=== PATIENT | female | born 1955 | race Caucasian/White ===

== ENCOUNTER 2019-03-15 08:30 | Outpatient (RCR) | payer SELFPAY ==
[2019-02-22 08:53] VITALS: BP 136/68; PULSE 70; RESP 18; TEMP 36.1; BMI 32.3
--- NOTE | 2019-02-22 11:35 | PCM.WC.HP ---
(1) Ulcer of right foot with fat layer exposed Status: Acute Current Visit: Yes Code(s): L97.512 - Non-pressure chronic ulcer of other part of right foot with fat layer exposed (2) Chronic ulcer of left foot with fat layer exposed Status: Chronic Current Visit: Yes Code(s): L97.522 - Non-pressure chronic ulcer of other part of left foot with fat layer exposed (3) Type 2 diabetes mellitus with diabetic polyneuropathy Status: Acute Current Visit: Yes Code(s): E11.42 - Type 2 diabetes mellitus with diabetic polyneuropathy (4) PVD (peripheral vascular disease) Status: Suspected Current Visit: Yes Code(s): I73.9 - Peripheral vascular disease, unspecified (5) Lower extremity edema Status: Acute Current Visit: Yes Code(s): R60.0 - Localized edema History of Present Illness Date of Service: 02/22/19 Chief Complaint: ulcers to right and left foot History of Wound: This 63-year-old diabetic female presents to the office today with her after being referred by her 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 The patient states that she had an issue with her sub-right first metatarsal head ulcer about 4 years ago, and that she had had a previous surgery in the area and that everything eventually healed up. She relates recently that about 3 weeks ago she got a pair of new diabetic shoes and that these new 3 ulcers all appeared. She says she has been treating them with what she thinks is Silvadene and a dressing over top. She has been trying to keep the areas offloaded with a half shoe to the right foot and an open toed shoe to the left foot so no pressure is applied to the ulcer sites. She is also using a scooter. She and her feel the areas have been slowly improving, but were referred here for further care. Patient denies noticing any purulence to the areas or any extending redness. Currently the patient denies any feelings of nausea, vomiting, fever, chills. Past Medical History Past Medical History: Chronic Problems Chronic ulcer of left foot with fat layer exposed (Chronic) Hypertension (Chronic) Obesity (BMI 30.0-34.9) (Chronic) Hyperlipidemia (Chronic) Diabetes mellitus, type II (Chronic) Fatty liver (Chronic) Suspect chronic, ED Liver US w/ fatty liver. Elevated LFTs, unclear if chronic as also dehydrated upon admission. Surgical History: cholecystectomy Allergies/Adverse Reactions: Allergies sulfamethoxazole [From Bactrim] Allergy (Verified 02/22/19 09:21) Nausea/Vom/Diarrhea trimethoprim [From Bactrim] Allergy (Verified 02/22/19 09:21) Nausea/Vom/Diarrhea Home Medications: Ambulatory Orders Medication Instructions Recorded Glipizide [Glucotrol Xl] 10 mg PO DAILY 03/31/15 Insulin NPH/Reg 70/30 [Novolin 4 units SC DAILY 03/31/15 70/30] Pravastatin [Pravachol] mg PO DAILY 02/22/19 Triamterene/Hydrochlorothiazid 0.5 tab PO DAILY 02/22/19 [Triamterene-Hctz 75-50 mg Tab] - Family History Maternal No pertinent history Paternal Heart Disease - Father w/ [place] at 75 y/o. Smoking Status: Never smoker Review of Systems Constitutional: Denies: Chills, Fever, Weight Change Cardiovascular: Denies: Chest Pain, Palpitations Respiratory: Denies: Cough, Shortness of Breath Gastrointestinal: Denies: Diarrhea, Nausea, Vomiting Skin: Reports: - - Bilateral foot ulcers - Physical Exam Vital Signs Temp Pulse Resp BP 96.9 F L 70 18 136/68 H 02/22/19 08:53 02/22/19 08:53 02/22/19 08:53 02/22/19 08:53 General: Alert, Oriented x3, Cooperative, No apparent distress Extremities: No cyanosis, Capillary Refill Less than 3 Seconds - To distal digits of each foot, No Calf Tenderness - Negative Azra and Valencia signs, Diminished Peripheral Pulses - DP pulses palpable bilateral and PT pulses nonpalpable bilateral, Edema - Bilateral lower extremity edema Skin: Ulcer/ Wound - Ulcer sub-right first metatarsal head with fat layer exposed. Base is a mixture of adherent slough, fibrin, devitalized subcutaneous tissue, biofilm, grannular tissue and slight surrounding hyperkeratotic tissue. There is no purulence, no malodor, no surrounding or extending cellulitis, no significant increase in warmth, no probing to bone, no tracking, no undermining. Small superficial ulcers also noted to the dorsal right fourth toe and distal left hallux. There are no surrounding signs of local infection in these areas at this time either. The bases of these are a mixture of adherent slough, fibrin, devitalized subcutaneous tissue, granular tissue, and surrounding hyperkeratotic tissue. Surrounding skin hairless and atrophic. Wound Measurements and Assessment WC - Nurse 1 - General Ulcer Measurement Start: 02/22/19 08:53 Freq: Status: Active Protocol: Activity Type Activity Date Activity User E-Sign Co-Sign Detail Recorded Client Recorded Date Recorded By Document 02/22/19 08:53 [id number] 02/22/19 09:18 ELMER 02/22/19 08:53 Wound Center Nurse 1 [Ulcer Assessment] 3-left great toe -Combined with other wound No -Current Size (cm) - Length 0.3 -Current Size (cm) - Width 0.2 -Current Size (cm) - Depth 0.1 -Total Square Cm 0.06 -Photo Taken Yes -Epithelialization Medium 34-66% -Tunneling No -Undermining/Tunneling No -Circular Undermining No -Exudate Amt Small -Exudate Type Serosanguineous -Wound Margin Flat & Intact -Granulation Amt Medium (34-66%) -Granulation Quality Red -Slough/Fibrin Yes -Necrosis Amt Small (1-33%) -Necrotic Tissue Type Adherent Slough -Structure Exposed N/A -Texture (Shannan-wound Skin Appearance) Assessed,Callus -Moisture (Shannan-wound Skin Appearance Assessed ) -Color (Shannan-wound Skin Appearance) Assessed -Temperature (Shannan-wound Skin No Abnormality Appearance) (Pt Warm) -Tenderness on Palpation (Shannan-wound No Skin Appearance) -Ulcer Cleansing Wound Cleanser -Foul Odor after Cleansing No -Anesthetic Used 5% Lidocaine Gel 2-right 1st metatarsal -Combined with other wound No -Current Size (cm) - Length 1.4 -Current Size (cm) - Width 1.2 -Current Size (cm) - Depth 0.9 -Total Square Cm 1.68 -Photo Taken Yes -Epithelialization Small 1-33% -Tunneling No -Undermining/Tunneling No -Circular Undermining No -Exudate Amt Small -Exudate Type Serosanguineous -Wound Margin Flat & Intact -Granulation Amt Medium (34-66%) -Granulation Quality [place] -Slough/Fibrin Yes -Necrosis Amt Medium (34-66%) -Necrotic Tissue Type Adherent Slough -Structure Exposed N/A -Texture (Shannan-wound Skin Appearance) Assessed,Callus -Moisture (Shannan-wound Skin Appearance Assessed,Dry/ ) Scaly -Color (Shannan-wound Skin Appearance) Assessed -Temperature (Shannan-wound Skin No Abnormality Appearance) (Pt Warm) -Tenderness on Palpation (Shannan-wound No Skin Appearance) -Ulcer Cleansing Wound Cleanser -Foul Odor after Cleansing No -Anesthetic Used 5% Lidocaine Gel 1-right 4th toe area cluster -Combined with other wound No -Current Size (cm) - Length 1.5 -Current Size (cm) - Width 1 -Current Size (cm) - Depth 0.1 -Total Square Cm 1.5 -Photo Taken Yes -Epithelialization Small 1-33% -Tunneling No -Undermining/Tunneling No -Circular Undermining No -Exudate Amt Small -Exudate Type Serosanguineous -Wound Margin Flat & Intact -Granulation Amt Small (1-33%) -Granulation Quality Red -Slough/Fibrin Yes -Necrosis Amt Small (1-33%) -Necrotic Tissue Type Adherent Slough -Structure Exposed N/A -Texture (Shannan-wound Skin Appearance) Assessed,Callus -Moisture (Shannan-wound Skin Appearance Assessed,Dry/ ) Scaly -Color (Shannan-wound Skin Appearance) Assessed -Temperature (Shannan-wound Skin No Abnormality Appearance) (Pt Warm) -Tenderness on Palpation (Shannan-wound No Skin Appearance) -Ulcer Cleansing Wound Cleanser -Foul Odor after Cleansing No -Anesthetic Used 5% Lidocaine Gel [Edema Assessment] -Lower Limb Edema Present Yes -Right Calf (cm) 39.6 -Right Ankle (cm) 22.7 -Left Calf (cm) 43 -Left Ankle (cm) 23 WC - Nurse 2 - General Ulcer CM Notes Start: 02/22/19 08:53 Freq: Status: Active Protocol: Activity Type Activity Date Activity User E-Sign Co-Sign Detail Recorded Client Recorded Date Recorded By Document 02/22/19 09:49 AN [id number] 02/22/19 09:59 AN 02/22/19 09:49 Wound Center Nurse 2 [Procedure/Treatment] 3-left great toe -Time 09:56 -Correct Patient Yes -Correct Side, Site, Position Yes -Correct Procedure Yes -Procedure Performed Yes -Type of Procedure Debridement -Clinical Debridement Subcutaneous -Post Debridement Size (cm) - Length 0.3 -Post Debridement Size (cm) - Width 0.3 -Post Debridement Size (cm) - Depth 0.1 -Total Square Cm 0.09 -Wound/Ulcer Outcome Amputation -Ulcer Cleansing Rinsed/ Irrigated with Saline -Foul Odor after Cleansing No -Bioengineered Tissue No -Bleeding Controlled with Pressure -Offloading Yes -Type of Offloading Surgical Shoe -Treatment Response Procedure Tolerated Well 2-right 1st metatarsal -Time 09:57 -Correct Patient Yes -Correct Side, Site, Position Yes -Correct Procedure Yes -Procedure Performed Yes -Type of Procedure Debridement -Clinical Debridement Subcutaneous -Post Debridement Size (cm) - Length 1.6 -Post Debridement Size (cm) - Width 1.4 -Post Debridement Size (cm) - Depth 0.6 -Total Square Cm 2.24 -Wound/Ulcer Outcome Not Healed -Ulcer Cleansing Rinsed/ Irrigated with Saline -Foul Odor after Cleansing No -Bioengineered Tissue No -Bleeding Controlled with Pressure -Offloading Yes -Type of Offloading Surgical Shoe -Treatment Response Procedure Tolerated Well 1-right 4th toe area cluster -Time 09:58 -Correct Patient Yes -Correct Side, Site, Position Yes -Correct Procedure Yes -Procedure Performed Yes -Type of Procedure Debridement -Clinical Debridement Subcutaneous -Post Debridement Size (cm) - Length 0.4 -Post Debridement Size (cm) - Width 0.3 -Post Debridement Size (cm) - Depth 0.1 -Total Square Cm 0.12 -Wound/Ulcer Outcome Not Healed -Ulcer Cleansing Rinsed/ Irrigated with Saline -Foul Odor after Cleansing No -Bioengineered Tissue No -Bleeding Controlled with Pressure -Offloading Yes -Type of Offloading Surgical Shoe -Treatment Response Procedure Tolerated Well [See Physician Procedure note for Specifics] Pain Scale: 0-10 Numeric [Pain] -Is Patient Pain Free? Yes Musculoskeletal: No Tenderness to Palpation of Joints or Extremities, - - Dorsally contracted digits bilateral Neurological: - - Epicritic sensation diminished to bilateral lower extremities consistent with diabetic neuropathy Psych/Mental Status: Normal Affect, Appropriate Debridement Note Post-Debridement Measurements/Treatment WC - Nurse 2 - General Ulcer CM Notes Start: 02/22/19 08:53 Freq: Status: Active Protocol: Activity Type Activity Date Activity User E-Sign Co-Sign Detail Recorded Client Recorded Date Recorded By Document 02/22/19 09:49 AN [id number] 02/22/19 09:59 AN 02/22/19 09:49 Wound Center Nurse 2 3-left great toe -Time 09:56 -Correct Patient Yes -Correct Side, Site, Position Yes -Correct Procedure Yes -Procedure Performed Yes -Type of Procedure Debridement -Clinical Debridement Subcutaneous -Post Debridement Size (cm) - Length 0.3 -Post Debridement Size (cm) - Width 0.3 -Post Debridement Size (cm) - Depth 0.1 -Total Square Cm 0.09 -Wound/Ulcer Outcome Amputation -Ulcer Cleansing Rinsed/ Irrigated with Saline -Foul Odor after Cleansing No -Bioengineered Tissue No -Bleeding Controlled with Pressure -Offloading Yes -Type of Offloading Surgical Shoe -Treatment Response Procedure Tolerated Well 2-right 1st metatarsal -Time 09:57 -Correct Patient Yes -Correct Side, Site, Position Yes -Correct Procedure Yes -Procedure Performed Yes -Type of Procedure Debridement -Clinical Debridement Subcutaneous -Post Debridement Size (cm) - Length 1.6 -Post Debridement Size (cm) - Width 1.4 -Post Debridement Size (cm) - Depth 0.6 -Total Square Cm 2.24 -Wound/Ulcer Outcome Not Healed -Ulcer Cleansing Rinsed/ Irrigated with Saline -Foul Odor after Cleansing No -Bioengineered Tissue No -Bleeding Controlled with Pressure -Offloading Yes -Type of Offloading Surgical Shoe -Treatment Response Procedure Tolerated Well 1-right 4th toe area cluster -Time 09:58 -Correct Patient Yes -Correct Side, Site, Position Yes -Correct Procedure Yes -Procedure Performed Yes -Type of Procedure Debridement -Clinical Debridement Subcutaneous -Post Debridement Size (cm) - Length 0.4 -Post Debridement Size (cm) - Width 0.3 -Post Debridement Size (cm) - Depth 0.1 -Total Square Cm 0.12 -Wound/Ulcer Outcome Not Healed -Ulcer Cleansing Rinsed/ Irrigated with Saline -Foul Odor after Cleansing No -Bioengineered Tissue No -Bleeding Controlled with Pressure -Offloading Yes -Type of Offloading Surgical Shoe -Treatment Response Procedure Tolerated Well Pain Scale: 0-10 Numeric Is Patient Pain Free? Yes No debridement was completed today Assessment/Plan Active Problems Ulcer of right foot with fat layer exposed (Acute) Chronic ulcer of left foot with fat layer exposed (Chronic) Type 2 diabetes mellitus with diabetic polyneuropathy (Acute) Lower extremity edema (Acute) Assessment: As noted above Plan: Initial patient examination and evaluation was performed. No significant debridement was performed today. Some slough and devitalized tissue was carefully removed with a moist 4 x 4. The ulcer sites were then dressed with Aquacel Ag to the base followed by a dry sterile dressing and Tubigrip for compression. The patient is to change her dressing in this manner on a daily basis. The importance of offloading each of the ulcer sites was stressed in great detail again today. The patient has a half shoe on the right side to completely offload each ulcer site as well as wears an open toed shoe to the left side to keep the pressure off the distal hallux. Patient is to continue with these as well as her knee scooter to keep the area is completely offloaded. Currently there are no signs of local infection, so no antibiotics were prescribed at this time. LEAS and venous Doppler exams were ordered. We will continue to follow these results. The importance of a high-protein diet was stressed with this patient today in order to help optimize ulcer healing potential. The patient was educated on all signs and symptoms of local and systemic infection she was instructed to go to the emergency room immediately should she notice any of these. All other questions were answered the patient's satisfaction. Patient will follow back up in clinic in 1 week to check on progress, or sooner if needed before then.
--- NOTE | 2019-02-28 08:10 | VDLE_ITS ---
Reason For Study: ULCER RIGHT LEFT CFV is compressible, spontaneous, phasic, CFV is compressible, spontaneous, phasic, competent and demonstrates normal competent, and demonstrates normal augmentation. augmentation. FV is compressible, spontaneous, phasic, FV is compressible, spontaneous, phasic, competent and demonstrates normal competent and demonstrates normal augmentation. augmentation. POP V is compressible, spontaneous, phasic, POP V is compressible, spontaneous, phasic, competent and demonstrates normal competent and demonstrates normal augmentation. augmentation. T/P Trunk is compressible. T/P Trunk is compressible. PTV is compressible. PTV is compressible. RT PerV is compressible. LT PerV is compressible. SFJ is competent and measures .5 X .4 cm. SFJ is competent and measures .7 X .7 cm. GSV proximal thigh measures .3 X .4 cm. GSV above knee is INCOMPETENT for greater GSV above knee is INCOMPETENT for greater than 0.5 seconds. than 0.5 seconds. GSV proximal thigh measures .3 X .4 cm. GSV below knee is competent. GSV below knee is INCOMPETENT for greater SSV at junction is competent and measures .3 than 0.5 seconds. X .3 cm. GSV at knee measures .3 X .3 cm. Procedure SSV at junction is INCOMPETENT for greater Exam performed in department. than 0.5 seconds and measures .2 X .3 cm. A preliminary report was called and/or faxed SSV proximal calf is INCOMPETENT for greater to [facility]. than 0.5 seconds and measures .3 X .4 cm. Interpretation Summary Deep veins of the lower extremities are bilaterally patent and compressible segmentally. There is no evidence of deep vein thrombosis on either side. Valvular competence appears intact within the proximal deep venous systems bilaterally. The great saphenous veins appear bilaterally patent and compressible segmentally. Sapheno-femoral junctions are bilaterally competent . The right great saphenous vein appears incompetent above the knee. The right great saphenous vein appears competent below the knee. The left great saphenous vein appears segmentally incompetent. The right small saphenous vein is patent and competent. The left small saphenous vein is patent and incompetent. Ordering Physician: Micah Prather Referring Physician: VALERIANO HASKINS Performed By: Nina Ferguson RDCS, RVT
--- NOTE | 2019-02-28 08:11 | ART_ITS ---
Reason For Study: NON HEALING ULCER Procedure A bilateral lower extremity continuous wave Doppler with analog waveform analysis,segmental pressures,and ankle brachial indexes without exercise. Left Segmental Pressures Left brachial= 136mmHg. Left posterior tibial artery = 134mmHg. Left dorsalis pedis artery = 167mmHg. Left digit = 132 mmHg. The left dorsalis pedis waveforms are triphasic. The left posterior tibial artery waveforms are triphasic. Right Segmental Pressures Right brachial= 131mmHg. Right posterior tibial artery = 86mmHg. Right dorsalis pedis artery = 153mmHg. Right digit = 73 mmHg. The right dorsalis pedis waveforms are biphasic. The right posterior tibial artery waveforms are monophasic. Indices The right ankle brachial index by the dorsalis pedis is 1.13. The right ankle brachial index by the posterior tibial artery is .63. The right digital-brachial index is .54. The left ankle brachial index by the dorsalis pedis is 1.23. The left ankle brachial index by the posterior tibial artery is .99. The left digital-brachial index is .97. Interpretation Summary Monophasic and biphasic Doppler waveforms are noted at ankle level on the right. Triphasic Doppler waveforms are noted at ankle level on the left. Pulse-volume recordings appear normal at all levels bilaterally, but for left digital level, which is diminished. Resting ankle-brachial indices are normal bilaterally. The right digital-brachial index is mildly diminished. The left digital-brachial index is normal. 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 There is evidence of mild impairment of arterial flow at digital level on the right. Arterial flow appears normal at digital level on the left. Ordering Physician: Micah Prather Referring Physician: VALERIANO HASKINS Performed By: DARBY WOLFE RDCS
[2019-03-01 09:10] VITALS: BP 148/66; PULSE 80; RESP 18; TEMP 36.4; BMI 32.3
--- NOTE | 2019-03-01 10:00 | PCM.WC.PN ---
(1) Ulcer of right foot with fat layer exposed Status: Acute Current Visit: Yes Code(s): L97.512 - Non-pressure chronic ulcer of other part of right foot with fat layer exposed (2) Chronic ulcer of left foot with fat layer exposed Status: Chronic Current Visit: Yes Code(s): L97.522 - Non-pressure chronic ulcer of other part of left foot with fat layer exposed (3) Type 2 diabetes mellitus with diabetic polyneuropathy Status: Acute Current Visit: Yes Code(s): E11.42 - Type 2 diabetes mellitus with diabetic polyneuropathy (4) PVD (peripheral vascular disease) Status: Suspected Current Visit: Yes Code(s): I73.9 - Peripheral vascular disease, unspecified (5) Lower extremity edema Status: Acute Current Visit: Yes Code(s): R60.0 - Localized edema Type of Wound Date of Service: 03/01/19 Chief Complaint: ulcers to right and left foot History of Wound: This 63-year-old diabetic female presents to the office today with her after being referred by her cushion maker for ulcers sub-right first metatarsal head, right dorsal fourth toe, and distal left hallux. The patient states that she had an issue with her sub-right first metatarsal head ulcer about 4 years ago, and that she had had a previous surgery in the area and that everything eventually healed up. She relates recently that about 3 weeks ago she got a pair of new diabetic shoes and that these new 3 ulcers all appeared. She says she has been treating them with what she thinks is Silvadene and a dressing over top. She has been trying to keep the areas offloaded with a half shoe to the right foot and an open toed shoe to the left foot so no pressure is applied to the ulcer sites. She is also using a scooter. She and her feel the areas have been slowly improving, but were referred here for further care. Patient denies noticing any purulence to the areas or any extending redness. Currently the patient denies any feelings of nausea, vomiting, fever, chills. Progress of Wound: Ulcer sites stable. Patient denies any feelings of nausea, vomiting, fever, chills. - Physical Exam Vital Signs Temp Pulse Resp BP 97.5 F L 80 18 148/66 H 03/01/19 09:10 03/01/19 09:10 03/01/19 09:10 03/01/19 09:10 General: Alert, Oriented x3, Cooperative, No apparent distress Extremities: No cyanosis, Capillary Refill Less than 3 Seconds - To distal digits of each foot, No Calf Tenderness - Negative Azra and Valencia signs, Diminished Peripheral Pulses - DP pulses palpable bilateral and PT pulses nonpalpable bilateral, Edema - Bilateral lower extremity edema Skin: Ulcer/ Wound - Ulcer sub-right first metatarsal head with fat layer exposed. Base is a mixture of adherent slough, fibrin, devitalized subcutaneous tissue, biofilm, grannular tissue and slight surrounding hyperkeratotic tissue. There is no purulence, no malodor, no surrounding or extending cellulitis, no significant increase in warmth, no probing to bone, no tracking, no undermining. Small superficial ulcers also noted to the dorsal right fourth toe and distal left hallux. There are no surrounding signs of local infection in these areas at this time either. The bases of these are a mixture of adherent slough, fibrin, devitalized subcutaneous tissue, granular tissue, and surrounding hyperkeratotic tissue. Surrounding skin hairless and atrophic. Wound Measurements and Assessment WC - Nurse 1 - General Ulcer Measurement Start: 02/22/19 08:53 Freq: Status: Active Protocol: Activity Type Activity Date Activity User E-Sign Co-Sign Detail Recorded Client Recorded Date Recorded By Document 03/01/19 09:10 [id number] 03/01/19 09:18 DL 03/01/19 09:10 Wound Center Nurse 1 [Ulcer Assessment] 3-left great toe -Current Size (cm) - Length 0.2 -Current Size (cm) - Width 0.2 -Current Size (cm) - Depth 0.1 -Total Square Cm 0.04 -Photo Taken No -Exudate Amt None Present -Wound Margin Thickened -Granulation Amt Small (1-33%) -Granulation Quality Pale,[place] -Necrosis Amt Small (1-33%) -Necrotic Tissue Type Adherent Slough -Structure Exposed N/A -Texture (Shannan-wound Skin Appearance) Callus -Moisture (Shannan-wound Skin Appearance Dry/Scaly ) -Color (Shannan-wound Skin Appearance) No Abnormality -Temperature (Shannan-wound Skin No Abnormality Appearance) (Pt Warm) -Tenderness on Palpation (Shannan-wound No Skin Appearance) -Ulcer Cleansing Rinsed/ Irrigated with Saline -Foul Odor after Cleansing No -Anesthetic Used 5% Lidocaine Gel 2-right 1st metatarsal -Current Size (cm) - Length 1.1 -Current Size (cm) - Width 1.1 -Current Size (cm) - Depth 0.7 -Total Square Cm 1.21 -Photo Taken No -Exudate Amt Small -Exudate Type Serosanguineous -Wound Margin Distinct, Outline Attached -Granulation Amt Medium (34-66%) -Granulation Quality [place] -Necrosis Amt Medium (34-66%) -Necrotic Tissue Type Adherent Slough -Structure Exposed N/A -Texture (Shannan-wound Skin Appearance) Callus -Moisture (Shannan-wound Skin Appearance Dry/Scaly ) -Color (Shannan-wound Skin Appearance) No Abnormality -Temperature (Shannan-wound Skin No Abnormality Appearance) (Pt Warm) -Tenderness on Palpation (Shannan-wound No Skin Appearance) -Ulcer Cleansing Rinsed/ Irrigated with Saline -Foul Odor after Cleansing No -Anesthetic Used 5% Lidocaine Gel 1-right 4th toe area cluster -Current Size (cm) - Length 0.2 -Current Size (cm) - Width 0.2 -Current Size (cm) - Depth 0.1 -Total Square Cm 0.04 -Photo Taken No -Exudate Amt None Present -Wound Margin Thickened -Granulation Amt Small (1-33%) -Granulation Quality [place] -Necrosis Amt Small (1-33%) -Necrotic Tissue Type Adherent Slough -Structure Exposed N/A -Texture (Shannan-wound Skin Appearance) Callus,Scarring -Moisture (Shannan-wound Skin Appearance Dry/Scaly ) -Color (Shannan-wound Skin Appearance) No Abnormality -Temperature (Shannan-wound Skin No Abnormality Appearance) (Pt Warm) -Tenderness on Palpation (Shannan-wound No Skin Appearance) -Ulcer Cleansing Rinsed/ Irrigated with Saline -Foul Odor after Cleansing No -Anesthetic Used 5% Lidocaine Gel WC - Nurse 2 - General Ulcer CM Notes Start: 02/22/19 08:53 Freq: Status: Active Protocol: Activity Type Activity Date Activity User E-Sign Co-Sign Detail Recorded Client Recorded Date Recorded By Document 03/01/19 09:24 AN [id number] 03/01/19 09:41 AN 03/01/19 09:24 Wound Center Nurse 2 [Procedure/Treatment] 3-left great toe -Time 09:26 -Correct Patient Yes -Correct Side, Site, Position Yes -Correct Procedure Yes -Procedure Performed Yes -Type of Procedure Debridement -Clinical Debridement Subcutaneous -Post Debridement Size (cm) - Length 0.3 -Post Debridement Size (cm) - Width 0.3 -Post Debridement Size (cm) - Depth 0.1 -Total Square Cm 0.09 -Wound/Ulcer Outcome Not Healed -Ulcer Cleansing Rinsed/ Irrigated with Saline -Foul Odor after Cleansing No -Bioengineered Tissue No -Bleeding Controlled with Pressure -Offloading Yes -Type of Offloading Surgical Shoe -Treatment Response Procedure Tolerated Well 2-right 1st metatarsal -Time 09:26 -Correct Patient Yes -Correct Side, Site, Position Yes -Correct Procedure Yes -Procedure Performed Yes -Type of Procedure Debridement -Clinical Debridement Subcutaneous -Post Debridement Size (cm) - Length 1.1 -Post Debridement Size (cm) - Width 1.1 -Post Debridement Size (cm) - Depth 0.6 -Total Square Cm 1.21 -Wound/Ulcer Outcome Not Healed -Ulcer Cleansing Rinsed/ Irrigated with Saline -Foul Odor after Cleansing No -Bioengineered Tissue No -Bleeding Controlled with Pressure -Offloading Yes -Type of Offloading Surgical Shoe -Treatment Response Procedure Tolerated Well 1-right 4th toe area cluster -Time 09:27 -Correct Patient Yes -Correct Side, Site, Position Yes -Correct Procedure Yes -Procedure Performed Yes -Type of Procedure Debridement -Clinical Debridement Subcutaneous -Post Debridement Size (cm) - Length 0.2 -Post Debridement Size (cm) - Width 0.3 -Post Debridement Size (cm) - Depth 0.1 -Total Square Cm 0.06 -Wound/Ulcer Outcome Not Healed -Ulcer Cleansing Rinsed/ Irrigated with Saline -Foul Odor after Cleansing No -Bioengineered Tissue No -Bleeding Controlled with Pressure -Offloading Yes -Type of Offloading Surgical Shoe [See Physician Procedure note for Specifics] Pain Scale: 0-10 Numeric [Pain] -Is Patient Pain Free? Yes Musculoskeletal: No Tenderness to Palpation of Joints or Extremities, - - Dorsally contracted digits bilateral Neurological: - - Epicritic sensation diminished to bilateral lower extremities consistent with diabetic neuropathy Psych/Mental Status: Normal Affect, Appropriate Debridement Note Post-Debridement Measurements/Treatment WC - Nurse 2 - General Ulcer CM Notes Start: 02/22/19 08:53 Freq: Status: Active Protocol: Activity Type Activity Date Activity User E-Sign Co-Sign Detail Recorded Client Recorded Date Recorded By Document 02/22/19 09:49 AN [id number] 02/22/19 09:59 AN Document 03/01/19 09:24 AN [id number] 03/01/19 09:41 AN 02/22/19 03/01/19 09:49 09:24 Wound Center Nurse 2 3-left great toe -Time 09:56 09:26 -Correct Patient Yes Yes -Correct Side, Site, Position Yes Yes -Correct Procedure Yes Yes -Procedure Performed Yes Yes -Type of Procedure Debridement Debridement -Clinical Debridement Subcutaneous Subcutaneous -Post Debridement Size (cm) - Length 0.3 0.3 -Post Debridement Size (cm) - Width 0.3 0.3 -Post Debridement Size (cm) - Depth 0.1 0.1 -Total Square Cm 0.09 0.09 -Wound/Ulcer Outcome Amputation Not Healed -Ulcer Cleansing Rinsed/ Rinsed/ Irrigated with Irrigated with Saline Saline -Foul Odor after Cleansing No No -Bioengineered Tissue No No -Bleeding Controlled with Pressure Pressure -Offloading Yes Yes -Type of Offloading Surgical Shoe Surgical Shoe -Treatment Response Procedure Procedure Tolerated Well Tolerated Well 2-right 1st metatarsal -Time 09:57 09:26 -Correct Patient Yes Yes -Correct Side, Site, Position Yes Yes -Correct Procedure Yes Yes -Procedure Performed Yes Yes -Type of Procedure Debridement Debridement -Clinical Debridement Subcutaneous Subcutaneous -Post Debridement Size (cm) - Length 1.6 1.1 -Post Debridement Size (cm) - Width 1.4 1.1 -Post Debridement Size (cm) - Depth 0.6 0.6 -Total Square Cm 2.24 1.21 -Wound/Ulcer Outcome Not Healed Not Healed -Ulcer Cleansing Rinsed/ Rinsed/ Irrigated with Irrigated with Saline Saline -Foul Odor after Cleansing No No -Bioengineered Tissue No No -Bleeding Controlled with Pressure Pressure -Offloading Yes Yes -Type of Offloading Surgical Shoe Surgical Shoe -Treatment Response Procedure Procedure Tolerated Well Tolerated Well 1-right 4th toe area cluster -Time 09:58 09:27 -Correct Patient Yes Yes -Correct Side, Site, Position Yes Yes -Correct Procedure Yes Yes -Procedure Performed Yes Yes -Type of Procedure Debridement Debridement -Clinical Debridement Subcutaneous Subcutaneous -Post Debridement Size (cm) - Length 0.4 0.2 -Post Debridement Size (cm) - Width 0.3 0.3 -Post Debridement Size (cm) - Depth 0.1 0.1 -Total Square Cm 0.12 0.06 -Wound/Ulcer Outcome Not Healed Not Healed -Ulcer Cleansing Rinsed/ Rinsed/ Irrigated with Irrigated with Saline Saline -Foul Odor after Cleansing No No -Bioengineered Tissue No No -Bleeding Controlled with Pressure Pressure -Offloading Yes Yes -Type of Offloading Surgical Shoe Surgical Shoe -Treatment Response Procedure Tolerated Well Pain Scale: 0-10 Numeric Is Patient Pain Free? Yes Yes Wound debrided: Right sub-first metatarsal head Laterality: Right Type of Debridement: Selective debridement Anesthesia Used: 5% Lidocaine Gel Depth: in the subcutaneous layer Percentage of wound debrided: 100 Instrument Used: 3mm curette Tissue Removed: Adherent slough, fibrin, biofilm, devitalized subcutaneous tissue Severity: Fat Layer Exposed Amount of bleeding with debridement: Mild Bleeding Controlled with: Pressure Patient tolerated procedure well - Additional Wound Wound debrided: Right dorsal fourth toe Laterality: Right Type of Debridement: Selective debridement Anesthesia Used: 5% Lidocaine Gel Depth: in the subcutaneous layer Percentage of wound debrided: 100 Instrument Used: 3mm curette Tissue Removed: Adherent slough, fibrin, biofilm Severity: Fat Layer Exposed Amount of bleeding with debridement: Mild Bleeding Controlled with: Pressure Patient tolerated procedure: Patient tolerated procedure well - Additional Wound Wound debrided: Left distal hallux Laterality: Left Type of Debridement: Selective debridement Anesthesia Used: 5% Lidocaine Gel Depth: in the subcutaneous layer Percentage of wound debrided: 100 Instrument Used: 3mm curette Tissue Removed: Adherent slough, fibrin, biofilm Severity: Fat Layer Exposed Amount of bleeding with debridement: Mild Bleeding Controlled with: Pressure Assessment/Plan Active Problems Ulcer of right foot with fat layer exposed (Acute) Chronic ulcer of left foot with fat layer exposed (Chronic) Type 2 diabetes mellitus with diabetic polyneuropathy (Acute) Lower extremity edema (Acute) Assessment: As noted above Plan: Patient was carefully examined and evaluated again today in detail. A very light selective debridement was performed as noted in the clinical panel. The ulcer sites were then dressed with Aquacel Ag to the base followed by a dry sterile dressing and Tubigrip for compression. The patient is to change her dressing in this manner on a daily basis. Continued importance of offloading each of the ulcer sites was stressed in great detail again today. The patient has a half shoe on the right side to completely offload each ulcer site as well as wears an open toed shoe to the left side to keep the pressure off the distal hallux. Patient is to continue with these as well as her knee scooter to keep the area is completely offloaded. Currently there are no clinical signs of local infection. LEAS and venous Doppler exams were ordered. Full detailed report is in patient's chart, however there was some evidence of angina is normal arterial occlusive disease in the right lower extremity as well as some impairment of arterial flow at the digital level on the right side. There is also evidence of incompetence of the veins in the left lower extremity. For these reasons the patient will be referred to vascular surgery for further evaluation, work-up, and intervention. The importance of a high-protein diet was stressed with this patient today in order to help optimize ulcer healing potential. The patient was educated on all signs and symptoms of local and systemic infection she was instructed to go to the emergency room immediately should she notice any of these. All other questions were answered the patient's satisfaction. Patient will follow back up in clinic in 1 week to check on progress, or sooner if needed before then.
[2019-03-08 08:35] VITALS: BP 152/71; PULSE 82; RESP 18; TEMP 36.1; BMI 32.3
--- NOTE | 2019-03-08 09:31 | PCM.WC.PN ---
(1) Ulcer of right foot with fat layer exposed Status: Acute Current Visit: Yes Code(s): L97.512 - Non-pressure chronic ulcer of other part of right foot with fat layer exposed (2) Chronic ulcer of left foot with fat layer exposed Status: Chronic Current Visit: Yes Code(s): L97.522 - Non-pressure chronic ulcer of other part of left foot with fat layer exposed (3) Type 2 diabetes mellitus with diabetic polyneuropathy Status: Acute Current Visit: Yes Code(s): E11.42 - Type 2 diabetes mellitus with diabetic polyneuropathy (4) PVD (peripheral vascular disease) Status: Suspected Current Visit: Yes Code(s): I73.9 - Peripheral vascular disease, unspecified (5) Lower extremity edema Status: Acute Current Visit: Yes Code(s): R60.0 - Localized edema Type of Wound Date of Service: 03/08/19 Chief Complaint: ulcers to right and left foot History of Wound: This 63-year-old diabetic female presents to the office today with her after being referred by 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 The patient states that she had an issue with her sub-right first metatarsal head ulcer about 4 years ago, and that she had had a previous surgery in the area and that everything eventually healed up. She relates recently that about 3 weeks ago she got a pair of new diabetic shoes and that these new 3 ulcers all appeared. She says she has been treating them with what she thinks is Silvadene and a dressing over top. She has been trying to keep the areas offloaded with a half shoe to the right foot and an open toed shoe to the left foot so no pressure is applied to the ulcer sites. She is also using a scooter. She and her feel the areas have been slowly improving, but were referred here for further care. Patient denies noticing any purulence to the areas or any extending redness. Currently the patient denies any feelings of nausea, vomiting, fever, chills. Progress of Wound: Ulcer sites stable again this week. Patient denies any feelings of nausea, vomiting, fever, chills. - Physical Exam Vital Signs Temp Pulse Resp BP 97 F L 82 18 152/71 H 03/08/19 08:35 03/08/19 08:35 03/08/19 08:35 03/08/19 08:35 General: Alert, Oriented x3, Cooperative, No apparent distress Extremities: No cyanosis, Capillary Refill Less than 3 Seconds - To distal digits of each foot, No Calf Tenderness - Negative Azra and Valencia signs bilateral, Diminished Peripheral Pulses - DP pulses palpable bilateral and PT pulses nonpalpable bilateral, Edema - Bilateral lower extremity edema Skin: Ulcer/ Wound - Ulcer sub-right first metatarsal head with fat layer exposed. Base is a mixture of adherent slough, fibrin, devitalized subcutaneous tissue, biofilm, grannular tissue and slight surrounding hyperkeratotic tissue. There is no purulence, no malodor, no surrounding or extending cellulitis, no significant increase in warmth, no probing to bone, no tracking, no undermining. Small superficial ulcers also noted to the dorsal right fourth toe and distal left hallux. There are no surrounding signs of local infection in these areas at this time either. The bases of these are a mixture of adherent slough, fibrin, devitalized subcutaneous tissue, granular tissue, and surrounding hyperkeratotic tissue. Surrounding skin hairless and atrophic. Wound Measurements and Assessment WC - Nurse 1 - General Ulcer Measurement Start: 02/22/19 08:53 Freq: Status: Active Protocol: Activity Type Activity Date Activity User E-Sign Co-Sign Detail Recorded Client Recorded Date Recorded By Document 03/08/19 08:35 [id number] 03/08/19 08:44 DL 03/08/19 08:35 Wound Center Nurse 1 [Ulcer Assessment] 3-left great toe -Current Size (cm) - Length 0.5 -Current Size (cm) - Width 0.5 -Current Size (cm) - Depth 0.1 -Total Square Cm 0.25 -Photo Taken No -Exudate Amt None Present -Wound Margin Flat & Intact -Granulation Amt None Present (0 %) -Necrosis Amt Small (1-33%) -Necrotic Tissue Type Adherent Slough -Structure Exposed N/A -Texture (Shannan-wound Skin Appearance) Scarring -Moisture (Shannan-wound Skin Appearance Dry/Scaly ) -Color (Shannan-wound Skin Appearance) No Abnormality -Temperature (Shannan-wound Skin No Abnormality Appearance) (Pt Warm) -Tenderness on Palpation (Shannan-wound No Skin Appearance) -Ulcer Cleansing Rinsed/ Irrigated with Saline -Foul Odor after Cleansing No -Anesthetic Used 5% Lidocaine Gel 2-right 1st metatarsal -Current Size (cm) - Length 1.1 -Current Size (cm) - Width 1.1 -Current Size (cm) - Depth 0.7 -Total Square Cm 1.21 -Photo Taken No -Exudate Amt Small -Exudate Type Serosanguineous -Wound Margin Distinct, Outline Attached -Granulation Amt Small (1-33%) -Granulation Quality Betances -Necrosis Amt Small (1-33%) -Necrotic Tissue Type Adherent Slough -Structure Exposed N/A -Texture (Shannan-wound Skin Appearance) Callus -Moisture (Shannan-wound Skin Appearance Dry/Scaly ) -Color (Shannan-wound Skin Appearance) No Abnormality -Temperature (Shannan-wound Skin No Abnormality Appearance) (Pt Warm) -Tenderness on Palpation (Shannna-wound No Skin Appearance) -Ulcer Cleansing Rinsed/ Irrigated with Saline -Foul Odor after Cleansing No -Anesthetic Used 5% Lidocaine Gel 1-right 4th toe area cluster -Current Size (cm) - Length 0.2 -Current Size (cm) - Width 0.2 -Current Size (cm) - Depth 0.1 -Total Square Cm 0.04 -Photo Taken No -Exudate Amt None Present -Wound Margin Thickened -Granulation Amt None Present (0 %) -Necrosis Amt Small (1-33%) -Necrotic Tissue Type Adherent Slough -Structure Exposed N/A -Texture (Shannan-wound Skin Appearance) Callus -Moisture (Shannan-wound Skin Appearance Dry/Scaly ) -Color (Shannan-wound Skin Appearance) No Abnormality -Temperature (Shannan-wound Skin No Abnormality Appearance) (Pt Warm) -Tenderness on Palpation (Shannan-wound No Skin Appearance) -Ulcer Cleansing Rinsed/ Irrigated with Saline -Foul Odor after Cleansing No -Anesthetic Used 5% Lidocaine Gel [Edema Assessment] -Right Calf (cm) 38.2 -Right Ankle (cm) 22 -Left Calf (cm) 41 -Left Ankle (cm) 22.8 WC - Nurse 2 - General Ulcer CM Notes Start: 02/22/19 08:53 Freq: Status: Active Protocol: Activity Type Activity Date Activity User E-Sign Co-Sign Detail Recorded Client Recorded Date Recorded By Document 03/08/19 09:00 AN [id number] 03/08/19 09:03 AN 03/08/19 09:00 Wound Center Nurse 2 [Procedure/Treatment] 3-left great toe -Procedure Performed No 2-right 1st metatarsal -Procedure Performed No 1-right 4th toe area cluster -Procedure Performed No [See Physician Procedure note for Specifics] Pain Scale: 0-10 Numeric [Pain] -Is Patient Pain Free? Yes Musculoskeletal: No Tenderness to Palpation of Joints or Extremities, - - Dorsally contracted digits bilateral Neurological: - - Epicritic sensation diminished bilateral lower extremities consistent with patient's diabetic neuropathy Psych/Mental Status: Normal Affect, Appropriate Debridement Note Post-Debridement Measurements/Treatment WC - Nurse 2 - General Ulcer CM Notes Start: 02/22/19 08:53 Freq: Status: Active Protocol: Activity Type Activity Date Activity User E-Sign Co-Sign Detail Recorded Client Recorded Date Recorded By Document 02/22/19 09:49 AN [id number] 02/22/19 09:59 AN Document 03/01/19 09:24 AN [id number] 03/01/19 09:41 AN Document 03/08/19 09:00 AN [id number] 03/08/19 09:03 AN 02/22/19 03/01/19 03/08/19 09:49 09:24 09:00 Wound Center Nurse 2 3-left great toe -Time 09:56 09:26 -Correct Patient Yes Yes -Correct Side, Site, Position Yes Yes -Correct Procedure Yes Yes -Procedure Performed Yes Yes No -Type of Procedure Debridement Debridement -Clinical Debridement Subcutaneous Subcutaneous -Post Debridement Size (cm) - Length 0.3 0.3 -Post Debridement Size (cm) - Width 0.3 0.3 -Post Debridement Size (cm) - Depth 0.1 0.1 -Total Square Cm 0.09 0.09 -Wound/Ulcer Outcome Amputation Not Healed -Ulcer Cleansing Rinsed/ Rinsed/ Irrigated with Irrigated with Saline Saline -Foul Odor after Cleansing No No -Bioengineered Tissue No No -Bleeding Controlled with Pressure Pressure -Offloading Yes Yes -Type of Offloading Surgical Shoe Surgical Shoe -Treatment Response Procedure Procedure Tolerated Well Tolerated Well 2-right 1st metatarsal -Time 09:57 09:26 -Correct Patient Yes Yes -Correct Side, Site, Position Yes Yes -Correct Procedure Yes Yes -Procedure Performed Yes Yes No -Type of Procedure Debridement Debridement -Clinical Debridement Subcutaneous Subcutaneous -Post Debridement Size (cm) - Length 1.6 1.1 -Post Debridement Size (cm) - Width 1.4 1.1 -Post Debridement Size (cm) - Depth 0.6 0.6 -Total Square Cm 2.24 1.21 -Wound/Ulcer Outcome Not Healed Not Healed -Ulcer Cleansing Rinsed/ Rinsed/ Irrigated with Irrigated with Saline Saline -Foul Odor after Cleansing No No -Bioengineered Tissue No No -Bleeding Controlled with Pressure Pressure -Offloading Yes Yes -Type of Offloading Surgical Shoe Surgical Shoe -Treatment Response Procedure Procedure Tolerated Well Tolerated Well 1-right 4th toe area cluster -Time 09:58 09:27 -Correct Patient Yes Yes -Correct Side, Site, Position Yes Yes -Correct Procedure Yes Yes -Procedure Performed Yes Yes No -Type of Procedure Debridement Debridement -Clinical Debridement Subcutaneous Subcutaneous -Post Debridement Size (cm) - Length 0.4 0.2 -Post Debridement Size (cm) - Width 0.3 0.3 -Post Debridement Size (cm) - Depth 0.1 0.1 -Total Square Cm 0.12 0.06 -Wound/Ulcer Outcome Not Healed Not Healed -Ulcer Cleansing Rinsed/ Rinsed/ Irrigated with Irrigated with Saline Saline -Foul Odor after Cleansing No No -Bioengineered Tissue No No -Bleeding Controlled with Pressure Pressure -Offloading Yes Yes -Type of Offloading Surgical Shoe Surgical Shoe -Treatment Response Procedure Tolerated Well Pain Scale: 0-10 Numeric Is Patient Pain Free? Yes Yes Yes No debridement was completed today Assessment/Plan Active Problems Ulcer of right foot with fat layer exposed (Acute) Chronic ulcer of left foot with fat layer exposed (Chronic) Type 2 diabetes mellitus with diabetic polyneuropathy (Acute) Lower extremity edema (Acute) Assessment: As noted above Plan: Patient was carefully examined and evaluated again today in detail. No aggressive debridement was performed today. Some slough was carefully removed using a moistened 4 x 4 gauze. The ulcer sites were then dressed with Aquacel Ag to the base followed by a dry sterile dressing and Tubigrip for compression. The patient is to change her dressing in this manner on a daily basis. Continued importance of offloading each of the ulcer sites was stressed in great detail again today. The patient has a half shoe on the right side to completely offload each ulcer site as well as wears an open toed shoe to the left side to keep the pressure off the distal hallux. Patient is to continue with these as well as her knee scooter to keep the area is completely offloaded. Currently there are no clinical signs of local infection. LEAS and venous Doppler exams were ordered. 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 There is also evidence of incompetence of the veins in the left lower extremity. For these reasons the patient will be referred to vascular surgery for further evaluation, work-up, and intervention. Patient will see Dr. Burrell for evaluation next Tuesday. The importance of a high-protein diet was stressed with this patient today in order to help optimize ulcer healing potential. The patient was educated on all signs and symptoms of local and systemic infection she was instructed to go to the emergency room immediately should she notice any of these. All other questions were answered the patient's satisfaction. Patient will follow back up in clinic in 1 week to check on progress, or sooner if needed before then.
[2019-03-15 08:47] VITALS: BP 128/55; PULSE 82; RESP 18; TEMP 36.1; BMI 32.3
--- NOTE | 2019-03-15 09:06 | PCM.WC.PN ---
(1) Ulcer of right foot with fat layer exposed Status: Acute Current Visit: Yes Code(s): L97.512 - Non-pressure chronic ulcer of other part of right foot with fat layer exposed (2) Chronic ulcer of left foot with fat layer exposed Status: Chronic Current Visit: Yes Code(s): L97.522 - Non-pressure chronic ulcer of other part of left foot with fat layer exposed (3) Type 2 diabetes mellitus with diabetic polyneuropathy Status: Acute Current Visit: Yes Code(s): E11.42 - Type 2 diabetes mellitus with diabetic polyneuropathy (4) PVD (peripheral vascular disease) Status: Suspected Current Visit: Yes Code(s): I73.9 - Peripheral vascular disease, unspecified (5) Lower extremity edema Status: Acute Current Visit: Yes Code(s): R60.0 - Localized edema Type of Wound Date of Service: 03/15/19 Chief Complaint: ulcers to right and left foot History of Wound: This 63-year-old diabetic female presents to the office today with her after being referred by her private detective for ulcers sub-right first metatarsal head, right dorsal fourth toe, and distal left hallux. The patient states that she had an issue with her sub-right first metatarsal head ulcer about 4 years ago, and that she had had a previous surgery in the area and that everything eventually healed up. She relates recently that about 3 weeks ago she got a pair of new diabetic shoes and that these new 3 ulcers all appeared. She says she has been treating them with what she thinks is Silvadene and a dressing over top. She has been trying to keep the areas offloaded with a half shoe to the right foot and an open toed shoe to the left foot so no pressure is applied to the ulcer sites. She is also using a scooter. She and her feel the areas have been slowly improving, but were referred here for further care. Patient denies noticing any purulence to the areas or any extending redness. Currently the patient denies any feelings of nausea, vomiting, fever, chills. Progress of Wound: Ulcer sites stable again this week and right dorsal 4th toe is healed. Patient denies any feelings of nausea, vomiting, fever, chills. - Physical Exam Vital Signs Temp Pulse Resp BP 97 F L 82 18 128/55 H 03/15/19 08:47 03/15/19 08:47 03/15/19 08:47 03/15/19 08:47 General: Alert, Oriented x3, Cooperative, No apparent distress Extremities: Capillary Refill Less than 3 Seconds - To distal digits of each foot, No Calf Tenderness - Negative Azra and Valencia signs bilateral, Diminished Peripheral Pulses - DP pulses palpable bilateral PT pulses nonpalpable bilateral, Edema - Bilateral lower extremity edema Skin: Ulcer/ Wound - Right fourth toe ulcer healed. Ulcer sub-right first metatarsal head with fat layer exposed. Site remains stable. Base is a mixture of adherent slough, fibrin, devitalized subcutaneous tissue, biofilm, grannular tissue and slight surrounding hyperkeratotic tissue. There is no purulence, no malodor, no surrounding or extending cellulitis, no significant increase in warmth, no probing to bone, no tracking, no undermining. Small superficial ulcer also noted to the distal left hallux. There are no surrounding signs of local infection in this area at this time either. The base is these are a mixture of adherent slough, fibrin, devitalized subcutaneous tissue, granular tissue, and surrounding hyperkeratotic tissue. Surrounding skin hairless and atrophic. Wound Measurements and Assessment WC - Nurse 1 - General Ulcer Measurement Start: 02/22/19 08:53 Freq: Status: Active Protocol: Activity Type Activity Date Activity User E-Sign Co-Sign Detail Recorded Client Recorded Date Recorded By Document 03/15/19 08:47 [id number] 03/15/19 08:57 RB 03/15/19 08:47 Wound Center Nurse 1 [Ulcer Assessment] 3-left great toe -Combined with other wound No -Current Size (cm) - Length 0.1 -Current Size (cm) - Width 0.1 -Current Size (cm) - Depth 0.1 -Total Square Cm 0.01 -Tunneling No -Undermining/Tunneling No -Circular Undermining No -Exudate Amt None Present -Wound Margin Distinct, Outline Attached -Granulation Amt Large (67-100%) -Granulation Quality [place] -Slough/Fibrin Yes -Necrosis Amt Small (1-33%) -Necrotic Tissue Type Adherent Slough -Structure Exposed N/A -Texture (Shannan-wound Skin Appearance) Callus -Moisture (Shannan-wound Skin Appearance Assessed ) -Color (Shannan-wound Skin Appearance) Assessed -Temperature (Shannan-wound Skin No Abnormality Appearance) (Pt Warm) -Tenderness on Palpation (Shannan-wound No Skin Appearance) -Ulcer Cleansing Wound Cleanser -Foul Odor after Cleansing No -Anesthetic Used 4% Lidocaine Solution 2-right 1st metatarsal -Combined with other wound No -Current Size (cm) - Length 1 -Current Size (cm) - Width 1 -Current Size (cm) - Depth 0.6 -Total Square Cm 1 -Tunneling No -Undermining/Tunneling No -Circular Undermining No -Exudate Amt Small -Exudate Type Serosanguineous -Wound Margin Distinct, Outline Attached -Granulation Amt Medium (34-66%) -Granulation Quality [place] -Slough/Fibrin Yes -Necrosis Amt Small (1-33%) -Necrotic Tissue Type Adherent Slough -Structure Exposed N/A -Texture (Shannan-wound Skin Appearance) Assessed -Moisture (Shannan-wound Skin Appearance Assessed ) -Color (Shannan-wound Skin Appearance) Assessed -Temperature (Shannan-wound Skin No Abnormality Appearance) (Pt Warm) -Tenderness on Palpation (Shannan-wound No Skin Appearance) -Ulcer Cleansing Wound Cleanser -Foul Odor after Cleansing No -Anesthetic Used 4% Lidocaine Solution 1-right 4th toe area cluster -Combined with other wound No -Current Size (cm) - Length 0 -Current Size (cm) - Width 0 -Current Size (cm) - Depth 0 -Total Square Cm 0 -Epithelialization Large 67-100% WC - Nurse 2 - General Ulcer CM Notes Start: 02/22/19 08:53 Freq: Status: Active Protocol: Activity Type Activity Date Activity User E-Sign Co-Sign Detail Recorded Client Recorded Date Recorded By Document 03/15/19 09:04 AN [id number] 03/15/19 09:05 AN 03/15/19 09:04 Wound Center Nurse 2 [Procedure/Treatment] 3-left great toe -Procedure Performed No 2-right 1st metatarsal -Procedure Performed No [See Physician Procedure note for Specifics] Pain Scale: 0-10 Numeric [Pain] -Is Patient Pain Free? Yes Musculoskeletal: No Tenderness to Palpation of Joints or Extremities, - - Dorsally contracted digits bilateral Neurological: - - Epicritic sensation diminished bilateral lower extremities consistent with patient's diabetic neuropathy Psych/Mental Status: Normal Affect, Appropriate Debridement Note Post-Debridement Measurements/Treatment WC - Nurse 2 - General Ulcer CM Notes Start: 02/22/19 08:53 Freq: Status: Active Protocol: Activity Type Activity Date Activity User E-Sign Co-Sign Detail Recorded Client Recorded Date Recorded By Document 02/22/19 09:49 AN [id number] 02/22/19 09:59 AN Document 03/01/19 09:24 AN [id number] 03/01/19 09:41 AN Document 03/08/19 09:00 AN [id number] 03/08/19 09:03 AN Document 03/15/19 09:04 AN [id number] 03/15/19 09:05 AN 02/22/19 03/01/19 03/08/19 09:49 09:24 09:00 Wound Center Nurse 2 3-left great toe -Time 09:56 09:26 -Correct Patient Yes Yes -Correct Side, Site, Position Yes Yes -Correct Procedure Yes Yes -Procedure Performed Yes Yes No -Type of Procedure Debridement Debridement -Clinical Debridement Subcutaneous Subcutaneous -Post Debridement Size (cm) - Length 0.3 0.3 -Post Debridement Size (cm) - Width 0.3 0.3 -Post Debridement Size (cm) - Depth 0.1 0.1 -Total Square Cm 0.09 0.09 -Wound/Ulcer Outcome Amputation Not Healed -Ulcer Cleansing Rinsed/ Rinsed/ Irrigated with Irrigated with Saline Saline -Foul Odor after Cleansing No No -Bioengineered Tissue No No -Bleeding Controlled with Pressure Pressure -Offloading Yes Yes -Type of Offloading Surgical Shoe Surgical Shoe -Treatment Response Procedure Procedure Tolerated Well Tolerated Well 2-right 1st metatarsal -Time 09:57 09:26 -Correct Patient Yes Yes -Correct Side, Site, Position Yes Yes -Correct Procedure Yes Yes -Procedure Performed Yes Yes No -Type of Procedure Debridement Debridement -Clinical Debridement Subcutaneous Subcutaneous -Post Debridement Size (cm) - Length 1.6 1.1 -Post Debridement Size (cm) - Width 1.4 1.1 -Post Debridement Size (cm) - Depth 0.6 0.6 -Total Square Cm 2.24 1.21 -Wound/Ulcer Outcome Not Healed Not Healed -Ulcer Cleansing Rinsed/ Rinsed/ Irrigated with Irrigated with Saline Saline -Foul Odor after Cleansing No No -Bioengineered Tissue No No -Bleeding Controlled with Pressure Pressure -Offloading Yes Yes -Type of Offloading Surgical Shoe Surgical Shoe -Treatment Response Procedure Procedure Tolerated Well Tolerated Well 1-right 4th toe area cluster -Time 09:58 09:27 -Correct Patient Yes Yes -Correct Side, Site, Position Yes Yes -Correct Procedure Yes Yes -Procedure Performed Yes Yes No -Type of Procedure Debridement Debridement -Clinical Debridement Subcutaneous Subcutaneous -Post Debridement Size (cm) - Length 0.4 0.2 -Post Debridement Size (cm) - Width 0.3 0.3 -Post Debridement Size (cm) - Depth 0.1 0.1 -Total Square Cm 0.12 0.06 -Wound/Ulcer Outcome Not Healed Not Healed -Ulcer Cleansing Rinsed/ Rinsed/ Irrigated with Irrigated with Saline Saline -Foul Odor after Cleansing No No -Bioengineered Tissue No No -Bleeding Controlled with Pressure Pressure -Offloading Yes Yes -Type of Offloading Surgical Shoe Surgical Shoe -Treatment Response Procedure Tolerated Well Pain Scale: 0-10 Numeric Is Patient Pain Free? Yes Yes Yes 03/15/19 09:04 Wound Center Nurse 2 3-left great toe -Time -Correct Patient -Correct Side, Site, Position -Correct Procedure -Procedure Performed No -Type of Procedure -Clinical Debridement -Post Debridement Size (cm) - Length -Post Debridement Size (cm) - Width -Post Debridement Size (cm) - Depth -Total Square Cm -Wound/Ulcer Outcome -Ulcer Cleansing -Foul Odor after Cleansing -Bioengineered Tissue -Bleeding Controlled with -Offloading -Type of Offloading -Treatment Response 2-right 1st metatarsal -Time -Correct Patient -Correct Side, Site, Position -Correct Procedure -Procedure Performed No -Type of Procedure -Clinical Debridement -Post Debridement Size (cm) - Length -Post Debridement Size (cm) - Width -Post Debridement Size (cm) - Depth -Total Square Cm -Wound/Ulcer Outcome -Ulcer Cleansing -Foul Odor after Cleansing -Bioengineered Tissue -Bleeding Controlled with -Offloading -Type of Offloading -Treatment Response 1-right 4th toe area cluster -Time -Correct Patient -Correct Side, Site, Position -Correct Procedure -Procedure Performed -Type of Procedure -Clinical Debridement -Post Debridement Size (cm) - Length -Post Debridement Size (cm) - Width -Post Debridement Size (cm) - Depth -Total Square Cm -Wound/Ulcer Outcome -Ulcer Cleansing -Foul Odor after Cleansing -Bioengineered Tissue -Bleeding Controlled with -Offloading -Type of Offloading -Treatment Response Pain Scale: 0-10 Numeric Is Patient Pain Free? Yes No debridement was completed today Assessment/Plan Active Problems Ulcer of right foot with fat layer exposed (Acute) Chronic ulcer of left foot with fat layer exposed (Chronic) Type 2 diabetes mellitus with diabetic polyneuropathy (Acute) Lower extremity edema (Acute) Assessment: As noted above Plan: Patient was carefully examined and evaluated again today in detail. No aggressive debridement was performed again today. Patient states that she saw Dr. Burrell this week, and that he is going to schedule an arterial Doppler exam for her in the near future. Some slough was carefully removed using a moistened 4 x 4 gauze. The ulcer sites were then dressed with Aquacel Ag to the base followed by a dry sterile dressing and Tubigrip for compression. The patient is to change her dressing in this manner on a daily basis. Continued importance of offloading each of the ulcer sites was stressed in great detail again today. The patient has a half shoe on the right side to completely offload each ulcer site as well as wears an open toed shoe to the left side to keep the pressure off the distal hallux. Patient is to continue with these as well as her knee scooter to keep the area is completely offloaded. Currently there are no clinical signs of local infection. LEAS and venous Doppler exams were ordered. 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 There is also evidence of incompetence of the veins in the left lower extremity. For these reasons the patient will be referred to vascular surgery for further evaluation, work-up, and intervention. Patient will continue to follow-up in the near future with Dr. Burrell for further work-up and possible intervention. The importance of a high-protein diet was stressed with this patient today in order to help optimize ulcer healing potential. The patient was educated on all signs and symptoms of local and systemic infection she was instructed to go to the emergency room immediately should she notice any of these. All other questions were answered the patient's satisfaction. Patient will follow back up in clinic in 1 week to check on progress, or sooner if needed before then.
== END 2019-03-19 23:59 ==
LOC: WC 08:30
PROVIDERS: Family Provider Family Medicine; PCP Family Medicine; Referring Provider Podiatrist; Visit Provider Podiatrist
DX: E11.621 Type 2 diabetes mellitus with foot ulcer (principal); L97.522 Non-pressure chronic ulcer of other part of left foot with fat layer exposed; E11.42 Type 2 diabetes mellitus with diabetic polyneuropathy; E11.51 Type 2 diabetes mellitus with diabetic peripheral angiopathy without gangrene; R60.0 Localized edema; L97.512 Non-pressure chronic ulcer of other part of right foot with fat layer exposed; I10 Essential (primary) hypertension; E78.5 Hyperlipidemia, unspecified; E66.9 Obesity, unspecified; Z68.32 Body mass index [BMI] 32.0-32.9, adult; Z79.899 Other long term (current) drug therapy; Z79.4 Long term (current) use of insulin
CPT/HCPCS: 11042; 93923; 93970; 99202; 99212; G0463

== ENCOUNTER → 2019-03-26 09:45 | Outpatient (CLI) | payer SELFPAY ==
[2019-03-15 08:47] VITALS: BMI 32.3
[2019-03-22 08:22] VITALS: BMI 32.3
--- NOTE | 2019-03-26 09:50 | ADUL_ITS ---
Reason For Study: Atheroslcerosis Right Velocities Ext. Iliac Artery, dist = 146.2 cm./sec. Common Femoral Artery, mid = 138.1 cm./sec. Supf Femoral Artery, prox = 121.5 cm./sec. Supf Femoral Artery, mid = 103.3 cm./sec. Supf Femoral Artery, dist. = 117.8 cm./sec. Profunda Femoral Artery = 74.1 cm./sec. Popliteal Artery, prox. = 90.5 cm./sec. Popliteal Artery, mid = 60 cm./sec. Popliteal Artery, dist = 103.4 cm./sec. Ant. Tibial Artery, prox = 123.5 cm./sec. Ant. Tibial Artery, mid = 130.7 cm./sec. Ant. Tibial Artery, dist = 130.7 cm./sec. No flow noted in the [employer] and [place]. Procedure Exam performed in department. Interpretation Summary 1. 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 Otherwise in line flow through anterior tibial into the ankle with no significant stenosis. Ordering Physician: Simon Burrell Referring Physician: Rodo Jennings Performed By: Court Tripathi RVT
== END ==
PROVIDERS: Family Provider Family Medicine; PCP Family Medicine; Referring Provider Surgery Vascular Surgery; Visit Provider Surgery Vascular Surgery
DX: I70.235 Atherosclerosis of native arteries of right leg with ulceration of other part of foot (principal)
CPT/HCPCS: 93926

== ENCOUNTER 2019-04-19 08:30 | Outpatient (RCR) | payer SELFPAY ==
[2019-03-20 01:10] VITALS: BP 128/55; PULSE 82; RESP 18; TEMP 36.1
[2019-03-22 08:22] VITALS: BMI 32.3
--- NOTE | 2019-03-22 08:42 | PCM.WC.PN ---
(1) Ulcer of right foot with fat layer exposed Status: Acute Current Visit: No Code(s): L97.512 - Non-pressure chronic ulcer of other part of right foot with fat layer exposed (2) Chronic ulcer of left foot with fat layer exposed Status: Chronic Current Visit: No Code(s): L97.522 - Non-pressure chronic ulcer of other part of left foot with fat layer exposed (3) Type 2 diabetes mellitus with diabetic polyneuropathy Status: Acute Current Visit: No Code(s): E11.42 - Type 2 diabetes mellitus with diabetic polyneuropathy (4) PVD (peripheral vascular disease) Status: Suspected Current Visit: No Code(s): I73.9 - Peripheral vascular disease, unspecified (5) Lower extremity edema Status: Acute Current Visit: No Code(s): R60.0 - Localized edema Type of Wound Date of Service: 03/22/19 Chief Complaint: ulcers to right and left foot History of Wound: This 63-year-old diabetic female presents to the office today with her after being referred by her facilities mechanical design engineer for ulcers sub-right first metatarsal head, right dorsal fourth toe, and distal left hallux. The patient states that she had an issue with her sub-right first metatarsal head ulcer about 4 years ago, and that she had had a previous surgery in the area and that everything eventually healed up. She relates recently that about 3 weeks ago she got a pair of new diabetic shoes and that these new 3 ulcers all appeared. She says she has been treating them with what she thinks is Silvadene and a dressing over top. She has been trying to keep the areas offloaded with a half shoe to the right foot and an open toed shoe to the left foot so no pressure is applied to the ulcer sites. She is also using a scooter. She and her feel the areas have been slowly improving, but were referred here for further care. Patient denies noticing any purulence to the areas or any extending redness. Currently the patient denies any feelings of nausea, vomiting, fever, chills. Progress of Wound: Ulcer sites remain stable this week. Patient denies any feelings of nausea, vomiting, fever, chills. - Physical Exam Vital Signs Temp Pulse Resp BP 97 F L 82 18 128/55 H 03/20/19 01:10 03/20/19 01:10 03/20/19 01:10 03/20/19 01:10 General: Alert, Oriented x3, Cooperative, No apparent distress Extremities: Capillary Refill Less than 3 Seconds - To distal digits of each foot, No Calf Tenderness - Negative Azra and Valencia signs bilateral, Diminished Peripheral Pulses - DP pulses palpable bilateral PT pulses nonpalpable bilateral, Edema - Bilateral lower extremity edema Skin: Ulcer/ Wound - Ulcer sub-right first metatarsal head with fat layer exposed. Site remains stable. Base is a mixture of adherent slough, fibrin, devitalized subcutaneous tissue, biofilm, grannular tissue and slight surrounding hyperkeratotic tissue. There is no purulence, no malodor, no surrounding or extending cellulitis, no significant increase in warmth, no probing to bone, no tracking, no undermining. Small superficial ulcer also noted to the distal left hallux. There are no surrounding signs of local infection in this area at this time either. The base is these are a mixture of adherent slough, fibrin, devitalized subcutaneous tissue, granular tissue, and surrounding hyperkeratotic tissue. Surrounding skin hairless and atrophic. Wound Measurements and Assessment WC - Nurse 1 - General Ulcer Measurement Start: 03/22/19 08:22 Freq: Status: Active Protocol: Activity Type Activity Date Activity User E-Sign Co-Sign Detail Recorded Client Recorded Date Recorded By Document 03/22/19 08:22 ID [id number] 03/22/19 08:29 ID 03/22/19 08:22 Wound Center Nurse 1 [Ulcer Assessment] 3-left great toe -Current Size (cm) - Length 0.1 -Current Size (cm) - Width 0.1 -Current Size (cm) - Depth 0.1 -Total Square Cm 0.01 -Exudate Amt None Present -Wound Margin Flat & Intact -Granulation Amt Medium (34-66%) -Granulation Quality [place] -Necrosis Amt None Present (0 %) -Texture (Shannan-wound Skin Appearance) Assessed,Callus -Moisture (Shannan-wound Skin Appearance Assessed, ) Maceration -Color (Shannan-wound Skin Appearance) Assessed -Temperature (Shannan-wound Skin No Abnormality Appearance) (Pt Warm) -Tenderness on Palpation (Shannan-wound No Skin Appearance) -Ulcer Cleansing Rinsed/ Irrigated with Saline -Foul Odor after Cleansing No -Anesthetic Used 4% Lidocaine Solution 2-right 1st metatarsal -Current Size (cm) - Length 1.2 -Current Size (cm) - Width 1.2 -Current Size (cm) - Depth 0.5 -Total Square Cm 1.44 -Exudate Amt None Present -Wound Margin Thickened & Rolled Under -Granulation Amt Medium (34-66%) -Granulation Quality Pale,[place] -Necrosis Amt Medium (34-66%) -Necrotic Tissue Type Adherent Slough -Texture (Shannan-wound Skin Appearance) Assessed,Callus -Moisture (Shannan-wound Skin Appearance Assessed, ) Maceration -Color (Shannan-wound Skin Appearance) Assessed -Temperature (Shannan-wound Skin No Abnormality Appearance) (Pt Warm) -Tenderness on Palpation (Shannan-wound No Skin Appearance) -Ulcer Cleansing Rinsed/ Irrigated with Saline -Anesthetic Used 4% Lidocaine Solution [Edema Assessment] -Right Calf (cm) 38.2 -Right Ankle (cm) 22 -Left Calf (cm) 41 -Left Ankle (cm) 22.8 WC - Nurse 2 - General Ulcer CM Notes Start: 03/22/19 08:22 Freq: Status: Active Protocol: Activity Type Activity Date Activity User E-Sign Co-Sign Detail Recorded Client Recorded Date Recorded By Document 03/22/19 08:37 AN [id number] 03/22/19 08:39 AN 03/22/19 08:37 Wound Center Nurse 2 [Procedure/Treatment] 3-left great toe -Time 08:38 -Procedure Performed No 2-right 1st metatarsal -Time 08:38 -Procedure Performed No [See Physician Procedure note for Specifics] Pain Scale: 0-10 Numeric [Pain] -Is Patient Pain Free? Yes Musculoskeletal: No Tenderness to Palpation of Joints or Extremities, - - Dorsally contracted digits bilateral Neurological: - - Epicritic sensation diminished to bilateral lower extremities consistent with patient's diabetic neuropathy Psych/Mental Status: Normal Affect, Appropriate Debridement Note Post-Debridement Measurements/Treatment WC - Nurse 2 - General Ulcer CM Notes Start: 03/22/19 08:22 Freq: Status: Active Protocol: Activity Type Activity Date Activity User E-Sign Co-Sign Detail Recorded Client Recorded Date Recorded By Document 03/22/19 08:37 AN [id number] 03/22/19 08:39 AN 03/22/19 08:37 Wound Center Nurse 2 3-left great toe -Time 08:38 -Procedure Performed No 2-right 1st metatarsal -Time 08:38 -Procedure Performed No Pain Scale: 0-10 Numeric Is Patient Pain Free? Yes No debridement was completed today Assessment/Plan Assessment: As noted above Plan: Patient was carefully examined and evaluated again today in detail. No aggressive debridement was performed again today. Patient relates that her Doppler exam is scheduled for this coming Tuesday and then will have another follow-up on April [address] Burrell. Some slough was carefully removed using a moistened 4 x 4 gauze. The ulcer sites were then dressed with Aquacel Ag to the base followed by a dry sterile dressing and Tubigrip for compression. The patient is to change her dressing in this manner on a daily basis. Continued importance of offloading each of the ulcer sites was stressed in great detail again today. The patient has a half shoe on the right side to completely offload each ulcer site as well as wears an open toed shoe to the left side to keep the pressure off the distal hallux. Patient is to continue with these as well as her knee scooter to keep the area is completely offloaded. Currently there are no clinical signs of local infection. LEAS and venous Doppler exams were ordered. 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 There is also evidence of incompetence of the veins in the left lower extremity. For these reasons the patient will be referred to vascular surgery for further evaluation, work-up, and intervention. The importance of a high-protein diet was stressed with this patient today in order to help optimize ulcer healing potential. The patient was educated on all signs and symptoms of local and systemic infection she was instructed to go to the emergency room immediately should she notice any of these. All other questions were answered the patient's satisfaction. Patient will follow back up in clinic in 1 week to check on progress, or sooner if needed before then.
[2019-03-29 08:52] VITALS: BP 121/72; PULSE 71; RESP 16; BMI 32.3
--- NOTE | 2019-03-29 09:07 | PN.PCM_ITS ---
(1) Ulcer of right foot with fat layer exposed Status: Acute Current Visit: No Code(s): L97.512 - Non-pressure chronic ulcer of other part of right foot with fat layer exposed (2) Chronic ulcer of left foot with fat layer exposed Status: Chronic Current Visit: No Code(s): L97.522 - Non-pressure chronic ulcer of other part of left foot with fat layer exposed (3) Type 2 diabetes mellitus with diabetic polyneuropathy Status: Acute Current Visit: No Code(s): E11.42 - Type 2 diabetes mellitus with diabetic polyneuropathy (4) PVD (peripheral vascular disease) Status: Suspected Current Visit: No Code(s): I73.9 - Peripheral vascular disease, unspecified (5) Lower extremity edema Status: Acute Current Visit: No Code(s): R60.0 - Localized edema Type of Wound Date of Service: 03/29/19 Chief Complaint: ulcers to right and left foot History of Wound: This 63-year-old diabetic female presents to the office today with her after being referred by her sourcing internship for ulcers sub-right first metatarsal head, right dorsal fourth toe, and distal left hallux. The patient states that she had an issue with her sub-right first metatarsal head ulcer about 4 years ago, and that she had had a previous surgery in the area and that everything eventually healed up. She relates recently that about 3 weeks ago she got a pair of new diabetic shoes and that these new 3 ulcers all appeared. She says she has been treating them with what she thinks is Silvadene and a dressing over top. She has been trying to keep the areas offloaded with a half shoe to the right foot and an open toed shoe to the left foot so no pressu re is applied to the ulcer sites. She is also using a scooter. She and her feel the areas have been slowly improving, but were referred here for further care. Patient denies noticing any purulence to the areas or any extending redness. Currently the patient denies any feelings of nausea, vomiting, fever, chills. Progress of Wound: Ulcer sites remain stable again this week. Patient denies any feelings of nausea, vomiting, fever, chills. - Physical Exam Vital Signs Temp Pulse Resp BP 97 F L 71 16 121/72 H 03/20/19 01:10 03/29/19 08:52 03/29/19 08:52 03/29/19 08:52 General: Alert, Oriented x3, Cooperative, No apparent distress Extremities: Capillary Refill Less than 3 Seconds - To all distal digits of each foot, No Calf Tenderness - Negative Azar and Valencia signs bilateral, Diminished Peripheral Pulses - DP pulses palpable bilateral PT pulses nonpalpable bilateral, Edema - Bilateral lower extremity edema Skin: Ulcer/ Wound - Ulcer sub-right first metatarsal head with fat layer exposed. Site remains stable. Base is a mixture of adherent slough, fibrin, devitalized subcutaneous tissue, biofilm, grannular tissue and slight surrounding hyperkeratotic tissue. There is no purulence, no malodor, no surrounding or extending cellulitis, no significant increase in warmth, no probing to bone, no tracking, no undermining. Small superficial ulcer also noted to the distal left hallux. There are no surrounding signs of local infection in this area at this time either. The base is these are a mixture of adherent slough, fibrin, devitalized subcutaneous tissue, granular tissue, and surrounding hyperkeratotic tissue. Surrounding skin hairless and atrophic. Wound Measurements and Assessment WC - Nurse 1 - General Ulcer Measurement Start: 03/22/19 08:22 Freq: Status: Active Protocol: Activity Type Activity Date Activity User E-Sign Co-Sign Detail Recorded Client Recorded Date Recorded By Document 03/29/19 08:52 DV [id number] 03/29/19 08:58 DV 03/29/19 08:52 Wound Center Nurse 1 [Ulcer Assessment] 3-left great toe -Combined with other wound No -Current Size (cm) - Length 0.1 -Current Size (cm) - Width 0.1 -Current Size (cm) - Depth 0.1 -Total Square Cm 0.01 2-right 1st metatarsal -Combined with other wound No -Current Size (cm) - Length 1.0 -Current Size (cm) - Width 1.0 -Current Size (cm) - Depth 0.5 -Total Square Cm 1.00 -Photo Taken No -Epithelialization None Present -Tunneling No -Undermining/Tunneling No -Circular Undermining No -Classification - Thickness Full Thickness without Exposed Support Structure -Exudate Amt None Present -Wound Margin Indistinct, Non -Visible -Granulation Amt None Present (0 %) -Granulation Quality N/A -Slough/Fibrin Yes -Necrosis Amt Large (67-100%) -Necrotic Tissue Type Adherent Slough -Structure Exposed None/Limited to Skin Breakdown -Texture (Shannan-wound Skin Appearance) Assessed, Scarring -Moisture (Shannan-wound Skin Appearance Assessed,Dry/ ) Scaly -Color (Shannan-wound Skin Appearance) No Abnormality, Assessed -Temperature (Shannan-wound Skin No Abnormality Appearance) (Pt Warm) -Tenderness on Palpation (Shannan-wound No Skin Appearance) -Ulcer Cleansing Rinsed/ Irrigated with Saline -Foul Odor after Cleansing No -Anesthetic Used 5% Lidocaine Gel WC - Nurse 2 - General Ulcer CM Notes Start: 03/22/19 08:22 Freq: Status: Active Protocol: Activity Type Activity Date Activity User E-Sign Co-Sign Detail Recorded Client Recorded Date Recorded By Document 03/29/19 09:06 AN [id number] 03/29/19 09:07 AN 03/29/19 09:06 Wound Center Nurse 2 [Procedure/Treatment] 3-left great toe -Time 09:06 -Procedure Performed No 2-right 1st metatarsal -Time 09:06 -Procedure Performed No [See Physician Procedure note for Specifics] Pain Scale: 0-10 Numeric [Pain] -Is Patient Pain Free? Yes Musculoskeletal: No Tenderness to Palpation of Joints or Extremities, - - Dorsally contracted digits bilateral Neurological: - - Epicritic sensation diminished to bilateral lower extremities consistent with patient's diabetic neuropathy Psych/Mental Status: Normal Affect, Appropriate Debridement Note Post-Debridement Measurements/Treatment WC - Nurse 2 - General Ulcer CM Notes Start: 03/22/19 08:22 Freq: Status: Active Protocol: Activity Type Activity Date Activity User E-Sign Co-Sign Detail Recorded Client Recorded Date Recorded By Document 03/22/19 08:37 AN [id number] 03/22/19 08:39 AN Document 03/29/19 09:06 AN [id number] 03/29/19 09:07 AN 03/22/19 03/29/19 08:37 09:06 Wound Center Nurse 2 3-left great toe -Time 08:38 09:06 -Procedure Performed No No 2-right 1st metatarsal -Time 08:38 09:06 -Procedure Performed No No Pain Scale: 0-10 Numeric Is Patient Pain Free? Yes Yes No debridement was completed today Assessment/Plan Assessment: As noted above Plan: Patient was carefully examined and evaluated again today in detail. No aggressive debridement was performed today as patient has another appointment with vascular specialist next Tuesday, April 04. Some slough was carefully removed using a moistened 4 x 4 gauze. The ulcer sites were then dressed with Aquacel Ag to the base followed by a dry sterile dressing and Tubigrip for compression. The patient is to change her dressing in this manner on a daily basis. Continued importance of offloading each of the ulcer sites was stressed in great detail again today. The patient has a half shoe on the right side to completely offload each ulcer site as well as wears an open toed shoe to the left side to keep the pressure off the distal hallux. Patient is to continue with these as well as her knee scooter to keep the area is completely offloaded. Currently there are no clinical signs of local infection. LEAS and venous Doppler exams were ordered. 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 There is also evidence of incompetence of the veins in the left lower extremity. For these reasons the patient will be referred to vascular surgery for further evaluation, work-up, and intervention. The importance of a high-protein diet was stressed with this patient today in order to help optimize ulcer healing potential. The patient was educated on all signs and symptoms of local and systemic infection she was instructed to go to the emergency room immediately should she notice any of these. All other questions were answered the patient's satisfaction. Patient will follow back up in clinic in 1 week to check on progress, or sooner if needed before then.
[2019-04-05 08:49] VITALS: BP 152/80; PULSE 77; RESP 18; BMI 32.3
--- NOTE | 2019-04-05 09:27 | PN.PCM_ITS ---
(1) Ulcer of right foot with fat layer exposed Status: Acute Current Visit: No Code(s): L97.512 - Non-pressure chronic ulcer of other part of right foot with fat layer exposed (2) Chronic ulcer of left foot with fat layer exposed Status: Chronic Current Visit: No Code(s): L97.522 - Non-pressure chronic ulcer of other part of left foot with fat layer exposed (3) Type 2 diabetes mellitus with diabetic polyneuropathy Status: Acute Current Visit: No Code(s): E11.42 - Type 2 diabetes mellitus with diabetic polyneuropathy (4) PVD (peripheral vascular disease) Status: Suspected Current Visit: No Code(s): I73.9 - Peripheral vascular disease, unspecified (5) Lower extremity edema Status: Acute Current Visit: No Code(s): R60.0 - Localized edema Type of Wound Date of Service: 04/05/19 Chief Complaint: ulcers to right and left foot History of Wound: This 63-year-old diabetic female presents to the office today with her after being referred by her air drier for ulcers sub-right first metatarsal head, right dorsal fourth toe, and distal left hallux. The patient states that she had an issue with her sub-right first metatarsal head ulcer about 4 years ago, and that she had had a previous surgery in the area and that everything eventually healed up. She relates recently that about 3 weeks ago she got a pair of new diabetic shoes and that these new 3 ulcers all appeared. She says she has been treating them with what she thinks is Silvadene and a dressing over top. She has been trying to keep the areas offloaded with a half shoe to the right foot and an open toed shoe to the left foot so no pressu re is applied to the ulcer sites. She is also using a scooter. She and her feel the areas have been slowly improving, but were referred here for further care. Patient denies noticing any purulence to the areas or any extending redness. Currently the patient denies any feelings of nausea, vomiting, fever, chills. Progress of Wound: Ulcer site shows improvement this week. Left hallux appears healed today. Patient denies any feelings of nausea, vomiting, fever, chills. - Physical Exam Vital Signs Temp Pulse Resp BP 97 F L 77 18 152/80 H 03/20/19 01:10 04/05/19 08:49 04/05/19 08:49 04/05/19 08:49 General: Alert, Oriented x3, Cooperative, No apparent distress Extremities: Capillary Refill Less than 3 Seconds - To all distal digits of each foot, No Calf Tenderness - Negative Azra and Valencia signs bilateral, Diminished Peripheral Pulses - DP pulses palpable and PT pulses nonpalpable bilateral, Edema - Bilateral lower extremity edema Skin: Ulcer/ Wound - Ulcer sub-right first metatarsal head with fat layer exposed. Site remains stable. Base is a mixture of adherent slough, fibrin, devitalized subcutaneous tissue, biofilm, grannular tissue and slight surrounding hyperkeratotic tissue. There is no purulence, no malodor, no surrounding or extending cellulitis, no significant increase in warmth, no probing to bone, no tracking, no undermining. Wound Measurements and Assessment WC - Nurse 1 - General Ulcer Measurement Start: 03/22/19 08:22 Freq: Status: Active Protocol: Activity Type Activity Date Activity User E-Sign Co-Sign Detail Recorded Client Recorded Date Recorded By Document 04/05/19 08:49 OR [id number] 04/05/19 08:59 OR 04/05/19 08:49 Wound Center Nurse 1 [Ulcer Assessment] 3-left great toe -Current Size (cm) - Length 0.1 -Current Size (cm) - Width 0.1 -Current Size (cm) - Depth 0.1 -Total Square Cm 0.01 2-right 1st metatarsal -Current Size (cm) - Length 1.2 -Current Size (cm) - Width 1.3 -Current Size (cm) - Depth 0.4 -Total Square Cm 1.56 -Wound Margin Flat & Intact -Granulation Amt Medium (34-66%) -Granulation Quality Pale,[place] -Necrosis Amt Small (1-33%) -Necrotic Tissue Type Adherent Slough -Texture (Shannan-wound Skin Appearance) Assessed -Moisture (Shannan-wound Skin Appearance Assessed ) -Color (Shannan-wound Skin Appearance) Assessed -Temperature (Shannan-wound Skin No Abnormality Appearance) (Pt Warm) -Tenderness on Palpation (Hsannan-wound No Skin Appearance) -Ulcer Cleansing Rinsed/ Irrigated with Saline -Foul Odor after Cleansing No -Anesthetic Used 4% Lidocaine Solution [Edema Assessment] -Lower Limb Edema Present NA WC - Nurse 2 - General Ulcer CM Notes Start: 03/22/19 08:22 Freq: Status: Active Protocol: Activity Type Activity Date Activity User E-Sign Co-Sign Detail Recorded Client Recorded Date Recorded By Document 04/05/19 08:53 AN [id number] 04/05/19 08:57 AN 04/05/19 08:53 Wound Center Nurse 2 [Procedure/Treatment] 3-left great toe -Time 08:53 -Correct Patient Yes -Correct Side, Site, Position Yes -Correct Procedure Yes -Procedure Performed No -Wound/Ulcer Outcome Not Healed -Ulcer Cleansing Rinsed/ Irrigated with Saline -Foul Odor after Cleansing No -Bioengineered Tissue No -Bleeding Controlled with Pressure -Offloading Yes -Type of Offloading Knee Walker -Treatment Response Procedure Tolerated Well 2-right 1st metatarsal -Time 08:53 -Correct Patient Yes -Correct Side, Site, Position Yes -Correct Procedure Yes -Procedure Performed Yes -Type of Procedure Debridement -Clinical Debridement Subcutaneous -Post Debridement Size (cm) - Length 1.2 -Post Debridement Size (cm) - Width 1.0 -Post Debridement Size (cm) - Depth 0.4 -Total Square Cm 1.20 -Wound/Ulcer Outcome Not Healed -Ulcer Cleansing Rinsed/ Irrigated with Saline -Foul Odor after Cleansing No -Bioengineered Tissue No -Bleeding Controlled with Pressure -Offloading Yes -Type of Offloading Knee Walker -Treatment Response Procedure Tolerated Well [See Physician Procedure note for Specifics] Pain Scale: 0-10 Numeric [Pain] -Is Patient Pain Free? Yes Musculoskeletal: No Tenderness to Palpation of Joints or Extremities, - - Dorsally contracted digits bilateral Neurological: - - Epicritic sensation diminished to bilateral lower extremities consistent with patient's diabetic neuropathy Psych/Mental Status: Normal Affect, Appropriate Debridement Note Post-Debridement Measurements/Treatment WC - Nurse 2 - General Ulcer CM Notes Start: 03/22/19 08:22 Freq: Status: Active Protocol: Activity Type Activity Date Activity User E-Sign Co-Sign Detail Recorded Client Recorded Date Recorded By Document 03/22/19 08:37 AN [id number] 03/22/19 08:39 AN Document 03/29/19 09:06 AN [id number] 03/29/19 09:07 AN Document 04/05/19 08:53 AN [id number] 04/05/19 08:57 AN 03/22/19 03/29/19 04/05/19 08:37 09:06 08:53 Wound Center Nurse 2 3-left great toe -Time 08:38 09:06 08:53 -Correct Patient Yes -Correct Side, Site, Position Yes -Correct Procedure Yes -Procedure Performed No No No -Wound/Ulcer Outcome Not Healed -Ulcer Cleansing Rinsed/ Irrigated with Saline -Foul Odor after Cleansing No -Bioengineered Tissue No -Bleeding Controlled with Pressure -Offloading Yes -Type of Offloading Knee Walker -Treatment Response Procedure Tolerated Well 2-right 1st metatarsal -Time 08:38 09:06 08:53 -Correct Patient Yes -Correct Side, Site, Position Yes -Correct Procedure Yes -Procedure Performed No No Yes -Type of Procedure Debridement -Clinical Debridement Subcutaneous -Post Debridement Size (cm) - Length 1.2 -Post Debridement Size (cm) - Width 1.0 -Post Debridement Size (cm) - Depth 0.4 -Total Square Cm 1.20 -Wound/Ulcer Outcome Not Healed -Ulcer Cleansing Rinsed/ Irrigated with Saline -Foul Odor after Cleansing No -Bioengineered Tissue No -Bleeding Controlled with Pressure -Offloading Yes -Type of Offloading Knee Walker -Treatment Response Procedure Tolerated Well Pain Scale: 0-10 Numeric Is Patient Pain Free? Yes Yes Yes Wound debrided: Right sub-first MPJ Laterality: Right Type of Debridement: Excisional debridement Anesthesia Used: 5% Lidocaine Gel Depth: in the subcutaneous layer Percentage of wound debrided: 100 Instrument Used: 5mm curette Tissue Removed: Devitalized subcutaneous tissue, adherent slough, fibrin, biofilm Severity: Fat Layer Exposed Amount of bleeding with debridement: Mild Bleeding Controlled with: Pressure Patient tolerated procedure well Assessment/Plan Assessment: As noted above Plan: Patient was carefully examined and evaluated again today in detail. Patient had a subcutaneous excisional debridement performed to the aforementioned ulcer site as noted in the clinical panel. The ulcer site was then dressed with Aquacel Ag to the base followed by a dry sterile dressing and Tubigrip for compression. The patient is to change her dressing in this manner on a daily basis. Continued importance of offloading the ulce site was stressed in great detail again today. The patient has a half shoe on the right side to completely offload each ulcer site as well as wears an open toed shoe to the left side to keep the pressure off the distal hallux. Patient is to continue with these as well as her knee scooter to keep the area is completely offloaded. Currently there are no clinical signs of local infection. LEAS and venous Doppler exams were ordered. 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 There is also evidence of incompetence of the veins in the left lower extremity. Patient saw Dr. Burrell with vascular surgery and she reports that he does not feel the patient needs any intervention at this time. We will try to get the complete office note faxed over from this visit. The importance of a high-protein diet was stressed with this patient today in order to help optimize ulcer healing potential. The patient was educated on all signs and symptoms of local and systemic infection she was instructed to go to the emergency room immediately should she notice any of these. All other questions were answered the patient's satisfaction. Patient will follow back up in clinic in 1 week to check on progress, or sooner if needed before then.
[2019-04-19 08:51] VITALS: BP 142/66; PULSE 78; RESP 18; TEMP 36; BMI 32.3
--- NOTE | 2019-04-19 10:16 | PCM.WC.PN ---
(1) Ulcer of right foot with fat layer exposed Status: Acute Current Visit: No Code(s): L97.512 - Non-pressure chronic ulcer of other part of right foot with fat layer exposed (2) Chronic ulcer of left foot with fat layer exposed Status: Chronic Current Visit: No Code(s): L97.522 - Non-pressure chronic ulcer of other part of left foot with fat layer exposed (3) Type 2 diabetes mellitus with diabetic polyneuropathy Status: Acute Current Visit: No Code(s): E11.42 - Type 2 diabetes mellitus with diabetic polyneuropathy (4) PVD (peripheral vascular disease) Status: Suspected Current Visit: No Code(s): I73.9 - Peripheral vascular disease, unspecified (5) Lower extremity edema Status: Acute Current Visit: No Code(s): R60.0 - Localized edema Type of Wound Date of Service: 04/19/19 Chief Complaint: ulcers to right and left foot History of Wound: This 63-year-old diabetic female presents to the office today with her after being referred by her frame pulley mortising machine operator for ulcers sub-right first metatarsal head, right dorsal fourth toe, and distal left hallux. The patient states that she had an issue with her sub-right first metatarsal head ulcer about 4 years ago, and that she had had a previous surgery in the area and that everything eventually healed up. She relates recently that about 3 weeks ago she got a pair of new diabetic shoes and that these new 3 ulcers all appeared. She says she has been treating them with what she thinks is Silvadene and a dressing over top. She has been trying to keep the areas offloaded with a half shoe to the right foot and an open toed shoe to the left foot so no pressure is applied to the ulcer sites. She is also using a scooter. She and her feel the areas have been slowly improving, but were referred here for further care. Patient denies noticing any purulence to the areas or any extending redness. Currently the patient denies any feelings of nausea, vomiting, fever, chills. Progress of Wound: Ulcer site continues to improve. Patient denies any feelings of nausea, vomiting, fever, chills. - Physical Exam Vital Signs Temp Pulse Resp BP 96.8 F L 78 18 142/66 H 04/19/19 08:51 04/19/19 08:51 04/19/19 08:51 04/19/19 08:51 General: Alert, Oriented x3, Cooperative, No apparent distress Extremities: Capillary Refill Less than 3 Seconds - To all distal digits of each foot, No Calf Tenderness - Negative Azra and Valencia signs bilateral, Diminished Peripheral Pulses - DP pulses palpable and PT pulses nonpalpable bilateral, Edema - Bilateral lower extremity edema Skin: Ulcer/ Wound - Ulcer sub-right first metatarsal head with fat layer exposed. Improvement noted. Base is a mixture of adherent slough, fibrin, devitalized subcutaneous tissue, biofilm, grannular tissue and slight surrounding hyperkeratotic tissue. There is no purulence, no malodor, no surrounding or extending cellulitis, no significant increase in warmth, no probing to bone, no tracking, no undermining. Wound Measurements and Assessment WC - Nurse 1 - General Ulcer Measurement Start: 03/22/19 08:22 Freq: Status: Active Protocol: Activity Type Activity Date Activity User E-Sign Co-Sign Detail Recorded Client Recorded Date Recorded By Document 04/19/19 08:51 [id number] 04/19/19 08:53 RB 04/19/19 08:51 Wound Center Nurse 1 [Ulcer Assessment] 2-right 1st metatarsal -Combined with other wound No -Current Size (cm) - Length 0.7 -Current Size (cm) - Width 0.5 -Current Size (cm) - Depth 0.2 -Total Square Cm 0.35 -Tunneling No -Undermining/Tunneling No -Circular Undermining No -Exudate Amt Small -Exudate Type Serosanguineous -Wound Margin Thickened -Granulation Amt Medium (34-66%) -Granulation Quality [place] -Slough/Fibrin Yes -Necrosis Amt Small (1-33%) -Necrotic Tissue Type Adherent Slough -Structure Exposed N/A -Texture (Shannan-wound Skin Appearance) Callus -Moisture (Shannan-wound Skin Appearance Assessed ) -Color (Shannan-wound Skin Appearance) Assessed -Temperature (Shannan-wound Skin No Abnormality Appearance) (Pt Warm) -Tenderness on Palpation (Shannan-wound No Skin Appearance) -Ulcer Cleansing Wound Cleanser -Foul Odor after Cleansing No -Anesthetic Used 5% Lidocaine Gel WC - Nurse 2 - General Ulcer CM Notes Start: 03/22/19 08:22 Freq: Status: Active Protocol: Activity Type Activity Date Activity User E-Sign Co-Sign Detail Recorded Client Recorded Date Recorded By Document 04/19/19 09:05 AN [id number] 04/19/19 09:06 AN 04/19/19 09:05 Wound Center Nurse 2 [Procedure/Treatment] -Time 09:05 -Correct Patient Yes -Correct Side, Site, Position Yes -Correct Procedure Yes -Procedure Performed Yes -Type of Procedure Debridement -Clinical Debridement Subcutaneous -Post Debridement Size (cm) - Length 0.7 -Post Debridement Size (cm) - Width 0.6 -Post Debridement Size (cm) - Depth 0.3 -Total Square Cm 0.42 -Wound/Ulcer Outcome Not Healed -Ulcer Cleansing Rinsed/ Irrigated with Saline -Foul Odor after Cleansing No -Bioengineered Tissue No -Bleeding Controlled with Pressure -Offloading Yes -Type of Offloading Surgical Shoe -Treatment Response Procedure Tolerated Well [See Physician Procedure note for Specifics] Pain Scale: 0-10 Numeric [Pain] -Is Patient Pain Free? Yes Musculoskeletal: No Tenderness to Palpation of Joints or Extremities, - - Dorsally contracted digits bilateral Neurological: - - Epicritic sensation diminished to bilateral lower extremities consistent with patient's diabetic neuropathy status Psych/Mental Status: Normal Affect, Appropriate Debridement Note Post-Debridement Measurements/Treatment WC - Nurse 2 - General Ulcer CM Notes Start: 03/22/19 08:22 Freq: Status: Active Protocol: Activity Type Activity Date Activity User E-Sign Co-Sign Detail Recorded Client Recorded Date Recorded By Document 03/22/19 08:37 AN [id number] 03/22/19 08:39 AN Document 03/29/19 09:06 AN [id number] 03/29/19 09:07 AN Document 04/05/19 08:53 AN [id number] 04/05/19 08:57 AN Document 04/19/19 09:05 AN [id number] 04/19/19 09:06 AN 03/22/19 03/29/19 04/05/19 08:37 09:06 08:53 Wound Center Nurse 2 3-left great toe -Time 08:38 09:06 08:53 -Correct Patient Yes -Correct Side, Site, Position Yes -Correct Procedure Yes -Procedure Performed No No No -Wound/Ulcer Outcome Not Healed -Ulcer Cleansing Rinsed/ Irrigated with Saline -Foul Odor after Cleansing No -Bioengineered Tissue No -Bleeding Controlled with Pressure -Offloading Yes -Type of Offloading Knee Walker -Treatment Response Procedure Tolerated Well 2-right 1st metatarsal -Time 08:38 09:06 08:53 -Correct Patient Yes -Correct Side, Site, Position Yes -Correct Procedure Yes -Procedure Performed No No Yes -Type of Procedure Debridement -Clinical Debridement Subcutaneous -Post Debridement Size (cm) - Length 1.2 -Post Debridement Size (cm) - Width 1.0 -Post Debridement Size (cm) - Depth 0.4 -Total Square Cm 1.20 -Wound/Ulcer Outcome Not Healed -Ulcer Cleansing Rinsed/ Irrigated with Saline -Foul Odor after Cleansing No -Bioengineered Tissue No -Bleeding Controlled with Pressure -Offloading Yes -Type of Offloading Knee Walker -Treatment Response Procedure Tolerated Well Pain Scale: 0-10 Numeric Is Patient Pain Free? Yes Yes Yes 04/19/19 09:05 Wound Center Nurse 2 3-left great toe -Time -Correct Patient -Correct Side, Site, Position -Correct Procedure -Procedure Performed -Wound/Ulcer Outcome -Ulcer Cleansing -Foul Odor after Cleansing -Bioengineered Tissue -Bleeding Controlled with -Offloading -Type of Offloading -Treatment Response 2-right 1st metatarsal -Time 09:05 -Correct Patient Yes -Correct Side, Site, Position Yes -Correct Procedure Yes -Procedure Performed Yes -Type of Procedure Debridement -Clinical Debridement Subcutaneous -Post Debridement Size (cm) - Length 0.7 -Post Debridement Size (cm) - Width 0.6 -Post Debridement Size (cm) - Depth 0.3 -Total Square Cm 0.42 -Wound/Ulcer Outcome Not Healed -Ulcer Cleansing Rinsed/ Irrigated with Saline -Foul Odor after Cleansing No -Bioengineered Tissue No -Bleeding Controlled with Pressure -Offloading Yes -Type of Offloading Surgical Shoe -Treatment Response Procedure Tolerated Well Pain Scale: 0-10 Numeric Is Patient Pain Free? Yes Wound debrided: Right sub-first MPJ Laterality: Right Type of Debridement: Excisional debridement Anesthesia Used: 5% Lidocaine Gel Depth: in the subcutaneous layer Percentage of wound debrided: 100 Instrument Used: 3mm curette Tissue Removed: Devitalized subcutaneous tissue, adherent slough, fibrin, biofilm Severity: Fat Layer Exposed Amount of bleeding with debridement: Mild Bleeding Controlled with: Pressure Patient tolerated procedure well Assessment/Plan Assessment: As noted above Plan: Patient was carefully examined and evaluated again today in detail. Ulcer site shows good improvement again this week. Patient had a subcutaneous excisional debridement performed to the aforementioned ulcer site as noted in the clinical panel. The ulcer site was then dressed with Aquacel Ag to the base followed by a dry sterile dressing and Tubigrip for compression. The patient is to change her dressing in this manner on a daily basis. Continued importance of offloading the ulcer site was stressed in great detail again today. The patient has a half shoe on the right side to completely offload each ulcer site as well as wears an open toed shoe to the left side to keep the pressure off the distal hallux. Patient is to continue with these as well as her knee scooter to keep the area is completely offloaded. Currently there are no clinical signs of local infection. LEAS and venous Doppler exams were ordered. 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 There is also evidence of incompetence of the veins in the left lower extremity. A note from Dr. Burrell reports that they checked a duplex and she has some right peroneal and posterior tibial occlusive disease. He says that she has good direct line flow through her anterior tibial that appears adequate. He states that if her wound worsens then he would plan an angiogram. He plans to see her back in a couple months for another follow-up. The importance of a high-protein diet was stressed with this patient today in order to help optimize ulcer healing potential. The patient was educated on all signs and symptoms of local and systemic infection she was instructed to go to the emergency room immediately should she notice any of these. All other questions were answered the patient's satisfaction. Patient will follow back up in clinic in 1 week to check on progress, or sooner if needed before then.
== END 2019-04-19 23:59 ==
LOC: WC 08:30
PROVIDERS: Family Provider Family Medicine; PCP Family Medicine; Referring Provider Podiatrist; Visit Provider Podiatrist
DX: E11.621 Type 2 diabetes mellitus with foot ulcer (principal); L97.522 Non-pressure chronic ulcer of other part of left foot with fat layer exposed; E11.42 Type 2 diabetes mellitus with diabetic polyneuropathy; E11.51 Type 2 diabetes mellitus with diabetic peripheral angiopathy without gangrene; R60.0 Localized edema
CPT/HCPCS: 11042; 99212; G0463

== ENCOUNTER 2019-05-10 08:45 | Outpatient (RCR) | payer SELFPAY ==
[2019-04-20 01:06] VITALS: BP 142/66; PULSE 78; RESP 18; TEMP 36
[2019-04-26 09:09] VITALS: BP 144/81; PULSE 84; RESP 16; TEMP 36.2; BMI 32.3
--- NOTE | 2019-04-26 09:35 | PCM.WC.PN ---
(1) Ulcer of right foot with fat layer exposed Status: Acute Current Visit: No Code(s): L97.512 - Non-pressure chronic ulcer of other part of right foot with fat layer exposed (2) Chronic ulcer of left foot with fat layer exposed Status: Chronic Current Visit: No Code(s): L97.522 - Non-pressure chronic ulcer of other part of left foot with fat layer exposed (3) Type 2 diabetes mellitus with diabetic polyneuropathy Status: Acute Current Visit: No Code(s): E11.42 - Type 2 diabetes mellitus with diabetic polyneuropathy (4) PVD (peripheral vascular disease) Status: Suspected Current Visit: No Code(s): I73.9 - Peripheral vascular disease, unspecified (5) Lower extremity edema Status: Acute Current Visit: No Code(s): R60.0 - Localized edema Type of Wound Date of Service: 04/26/19 Chief Complaint: ulcers to right and left foot History of Wound: This 63-year-old diabetic female presents to the office today with her after being referred by her proctologist for ulcers sub-right first metatarsal head, right dorsal fourth toe, and distal left hallux. The patient states that she had an issue with her sub-right first metatarsal head ulcer about 4 years ago, and that she had had a previous surgery in the area and that everything eventually healed up. She relates recently that about 3 weeks ago she got a pair of new diabetic shoes and that these new 3 ulcers all appeared. She says she has been treating them with what she thinks is Silvadene and a dressing over top. She has been trying to keep the areas offloaded with a half shoe to the right foot and an open toed shoe to the left foot so no pressure is applied to the ulcer sites. She is also using a scooter. She and her feel the areas have been slowly improving, but were referred here for further care. Patient denies noticing any purulence to the areas or any extending redness. Currently the patient denies any feelings of nausea, vomiting, fever, chills. Progress of Wound: Ulcer site stable this week. Patient denies any feelings of nausea, vomiting, fever, chills. - Physical Exam Vital Signs Temp Pulse Resp BP 97.1 F L 84 16 144/81 H 04/26/19 09:09 04/26/19 09:09 04/26/19 09:09 04/26/19 09:09 General: Alert, Oriented x3, Cooperative, No apparent distress Extremities: Capillary Refill Less than 3 Seconds - to all digits of each foot, No Calf Tenderness - Negative Azra and Valencia signs bilateral, Diminished Peripheral Pulses - DP pulses palpable and PT pulses nonpalpable bilateral, Edema - Bilateral lower extremity edema Skin: Ulcer/ Wound - Ulcer sub-right first metatarsal head with fat layer exposed. Base is a mixture of adherent slough, fibrin, devitalized subcutaneous tissue, biofilm, grannular tissue and slight surrounding hyperkeratotic tissue. There is no purulence, no malodor, no surrounding or extending cellulitis, no significant increase in warmth, no probing to bone, no tracking, no undermining. Wound Measurements and Assessment WC - Nurse 1 - General Ulcer Measurement Start: 04/26/19 09:08 Freq: Status: Active Protocol: Activity Type Activity Date Activity User E-Sign Co-Sign Detail Recorded Client Recorded Date Recorded By Document 04/26/19 09:09 [facility] [id number] 04/26/19 09:15 [facility] 04/26/19 09:09 Wound Center Nurse 1 [Ulcer Assessment] 2-right 1st metatarsal -Combined with other wound No -Current Size (cm) - Length 0.4 -Current Size (cm) - Width 0.3 -Current Size (cm) - Depth 0.3 -Total Square Cm 0.12 -Photo Taken No -Epithelialization None Present -Tunneling No -Undermining/Tunneling No -Circular Undermining No -Exudate Amt Small -Exudate Type Serous -Wound Margin Distinct, Outline Attached -Granulation Amt Medium (34-66%) -Granulation Quality [place] -Slough/Fibrin Yes -Necrosis Amt Small (1-33%) -Necrotic Tissue Type Adherent Slough -Texture (Shannan-wound Skin Appearance) Callus,Scarring -Moisture (Shannan-wound Skin Appearance Assessed,Dry/ ) Scaly -Color (Shannan-wound Skin Appearance) Assessed -Temperature (Shannan-wound Skin No Abnormality Appearance) (Pt Warm) -Tenderness on Palpation (Shannan-wound No Skin Appearance) -Ulcer Cleansing Rinsed/ Irrigated with Saline -Foul Odor after Cleansing No -Anesthetic Used 5% Lidocaine Gel [Edema Assessment] -Lower Limb Edema Present Yes -Right Calf (cm) 40.5 -Right Ankle (cm) 23.1 Musculoskeletal: No Tenderness to Palpation of Joints or Extremities, - - Dorsally contracted digits bilateral Neurological: - - Epicritic sensation diminished to bilateral lower extremities consistent with patient's diabetic neuropathy status Psych/Mental Status: Normal Affect, Appropriate Debridement Note Wound debrided: Right sub-first MPJ Laterality: Right Type of Debridement: Excisional debridement Anesthesia Used: 5% Lidocaine Gel Depth: in the subcutaneous layer Percentage of wound debrided: 100 Instrument Used: 3mm curette Tissue Removed: Devitalized subcutaneous tissue, adherent slough, fibrin, biofilm Severity: Fat Layer Exposed Amount of bleeding with debridement: Mild Bleeding Controlled with: Pressure Patient tolerated procedure well Assessment/Plan Assessment: As noted above Plan: Patient was carefully examined and evaluated again today in detail. Ulcer stable this week. Patient had another subcutaneous excisional debridement performed to the aforementioned ulcer site as noted in the clinical panel. The ulcer site was then dressed with [place] to the base followed by a dry sterile dressing and Tubigrip for compression. The patient is to change her dressing in this manner on a daily basis. Continued importance of offloading the ulcer site was stressed in great detail again today. The patient has a half shoe on the right side to completely offload each ulcer site as well as wears an open toed shoe to the left side to keep the pressure off the distal hallux. Patient is to continue with these as well as her knee scooter to keep the area is completely offloaded. Currently there are no clinical signs of local infection. LEAS and venous Doppler exams were ordered. 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 There is also evidence of incompetence of the veins in the left lower extremity. A note from Dr. Burrell reports that they checked a duplex and she has some right peroneal and posterior tibial occlusive disease. He says that she has good direct line flow through her anterior tibial that appears adequate. He states that if her wound worsens then he would plan an angiogram. He plans to see her back in a couple months for another follow-up. The importance of a high-protein diet was stressed with this patient today in order to help optimize ulcer healing potential. The patient was educated on all signs and symptoms of local and systemic infection she was instructed to go to the emergency room immediately should she notice any of these. All other questions were answered the patient's satisfaction. Patient will follow back up in clinic in 1 week to check on progress, or sooner if needed before then.
[2019-05-03 08:46] VITALS: BP 139/76; PULSE 84; RESP 18; TEMP 36.2; BMI 32.3
--- NOTE | 2019-05-03 10:25 | PCM.WC.PN ---
(1) Ulcer of right foot with fat layer exposed Status: Acute Current Visit: No Code(s): L97.512 - Non-pressure chronic ulcer of other part of right foot with fat layer exposed (2) Chronic ulcer of left foot with fat layer exposed Status: Chronic Current Visit: No Code(s): L97.522 - Non-pressure chronic ulcer of other part of left foot with fat layer exposed (3) Type 2 diabetes mellitus with diabetic polyneuropathy Status: Acute Current Visit: No Code(s): E11.42 - Type 2 diabetes mellitus with diabetic polyneuropathy (4) PVD (peripheral vascular disease) Status: Suspected Current Visit: No Code(s): I73.9 - Peripheral vascular disease, unspecified (5) Lower extremity edema Status: Acute Current Visit: No Code(s): R60.0 - Localized edema Type of Wound Date of Service: 05/03/19 Chief Complaint: ulcers to right and left foot History of Wound: This 63-year-old diabetic female presents to the office today with her after being referred by her jute bag cutting machine operator for ulcers sub-right first metatarsal head, right dorsal fourth toe, and distal left hallux. The patient states that she had an issue with her sub-right first metatarsal head ulcer about 4 years ago, and that she had had a previous surgery in the area and that everything eventually healed up. She relates recently that about 3 weeks ago she got a pair of new diabetic shoes and that these new 3 ulcers all appeared. She says she has been treating them with what she thinks is Silvadene and a dressing over top. She has been trying to keep the areas offloaded with a half shoe to the right foot and an open toed shoe to the left foot so no pressure is applied to the ulcer sites. She is also using a scooter. She and her feel the areas have been slowly improving, but were referred here for further care. Patient denies noticing any purulence to the areas or any extending redness. Currently the patient denies any feelings of nausea, vomiting, fever, chills. Progress of Wound: Ulcer stable. Patient denies any feelings of nausea, vomiting, fever, chills. - Physical Exam Vital Signs Temp Pulse Resp BP 97.1 F L 84 18 139/76 H 05/03/19 08:46 05/03/19 08:46 05/03/19 08:46 05/03/19 08:46 General: Alert, Oriented x3, Cooperative, No apparent distress Extremities: Capillary Refill Less than 3 Seconds - To all digits of each foot, No Calf Tenderness - Negative Azra and Valencia signs bilateral, Diminished Peripheral Pulses - DP pulses palpable and PT pulses nonpalpable bilateral, Edema - Bilateral lower extremity edema Skin: Ulcer/ Wound - Ulcer sub-right first metatarsal head with fat layer exposed. Base is a mixture of adherent slough, fibrin, devitalized subcutaneous tissue, continued increasing amount of grannular tissue, and slight surrounding hyperkeratotic tissue. There is no purulence, no malodor, no surrounding or extending cellulitis, no significant increase in warmth, no probing to bone, no tracking, no undermining. Wound Measurements and Assessment WC - Nurse 1 - General Ulcer Measurement Start: 04/26/19 09:08 Freq: Status: Active Protocol: Activity Type Activity Date Activity User E-Sign Co-Sign Detail Recorded Client Recorded Date Recorded By Document 05/03/19 08:46 DL [id number] 05/03/19 08:51 DL 05/03/19 08:46 Wound Center Nurse 1 [Ulcer Assessment] 2-right 1st metatarsal -Current Size (cm) - Length 0.5 -Current Size (cm) - Width 0.5 -Current Size (cm) - Depth 0.2 -Total Square Cm 0.25 -Photo Taken No -Exudate Amt None Present -Wound Margin Distinct, Outline Attached -Granulation Amt Large (67-100%) -Granulation Quality Mercer -Necrosis Amt Small (1-33%) -Necrotic Tissue Type Adherent Slough -Structure Exposed N/A -Texture (Shannan-wound Skin Appearance) Callus,Scarring -Moisture (Shannan-wound Skin Appearance No Abnormality ) -Color (Shannan-wound Skin Appearance) No Abnormality -Temperature (Shannan-wound Skin No Abnormality Appearance) (Pt Warm) -Tenderness on Palpation (Shannan-wound No Skin Appearance) -Ulcer Cleansing Rinsed/ Irrigated with Saline -Foul Odor after Cleansing No -Anesthetic Used 5% Lidocaine Gel WC - Nurse 2 - General Ulcer CM Notes Start: 04/26/19 09:08 Freq: Status: Active Protocol: Activity Type Activity Date Activity User E-Sign Co-Sign Detail Recorded Client Recorded Date Recorded By Document 05/03/19 09:14 [id number] 05/03/19 09:16 05/03/19 09:14 Wound Center Nurse 2 [Procedure/Treatment] -Time 09:15 -Correct Patient Yes -Correct Side, Site, Position Yes -Correct Procedure Yes -Procedure Performed Yes -Type of Procedure Debridement -Clinical Debridement Subcutaneous -Post Debridement Size (cm) - Length 0.7 -Post Debridement Size (cm) - Width 0.7 -Post Debridement Size (cm) - Depth 0.3 -Total Square Cm 0.49 -Wound/Ulcer Outcome Not Healed -Ulcer Cleansing Rinsed/ Irrigated with Saline -Foul Odor after Cleansing No -Bioengineered Tissue No -Bleeding Controlled with Pressure -Offloading Yes -Type of Offloading Surgical Shoe -Treatment Response Procedure Tolerated Well [See Physician Procedure note for Specifics] Pain Scale: 0-10 Numeric [Pain] -Is Patient Pain Free? Yes Musculoskeletal: No Tenderness to Palpation of Joints or Extremities, - - Dorsally contracted digits bilateral Neurological: - - Epicritic sensation diminished to bilateral lower extremities consistent with patient's diabetic neuropathy status Psych/Mental Status: Normal Affect, Appropriate Debridement Note Post-Debridement Measurements/Treatment WC - Nurse 2 - General Ulcer CM Notes Start: 04/26/19 09:08 Freq: Status: Active Protocol: Activity Type Activity Date Activity User E-Sign Co-Sign Detail Recorded Client Recorded Date Recorded By Document 04/26/19 09:29 [id number] 04/26/19 09:38 Document 05/03/19 09:14 [id number] 05/03/19 09:16 04/26/19 05/03/19 09:29 09:14 Wound Center Nurse 2 2-right 1st metatarsal -Time 09:30 09:15 -Correct Patient Yes Yes -Correct Side, Site, Position Yes Yes -Correct Procedure Yes Yes -Procedure Performed Yes Yes -Type of Procedure Debridement Debridement -Clinical Debridement Subcutaneous Subcutaneous -Post Debridement Size (cm) - Length 0.7 0.7 -Post Debridement Size (cm) - Width 0.7 0.7 -Post Debridement Size (cm) - Depth 3 0.3 -Total Square Cm 0.49 0.49 -Wound/Ulcer Outcome Not Healed Not Healed -Ulcer Cleansing Rinsed/ Rinsed/ Irrigated with Irrigated with Saline Saline -Foul Odor after Cleansing No No -Bioengineered Tissue No No -Bleeding Controlled with Pressure Pressure -Offloading Yes -Type of Offloading Surgical Shoe Surgical Shoe -Treatment Response Procedure Procedure Tolerated Well Tolerated Well Pain Scale: 0-10 Numeric Is Patient Pain Free? Yes Yes Wound debrided: Right sub-first MPJ Laterality: Right Type of Debridement: Excisional debridement Anesthesia Used: 5% Lidocaine Gel Depth: in the subcutaneous layer Percentage of wound debrided: 100 Instrument Used: 3mm curette Tissue Removed: Devitalized subcutaneous tissue, adherent slough, fibrin, hyperkeratotic Severity: Fat Layer Exposed Amount of bleeding with debridement: Mild Bleeding Controlled with: Pressure Patient tolerated procedure well Assessment/Plan Assessment: As noted above Plan: Patient was carefully examined and evaluated again today in detail. Ulcer remains stable in size with increasing amount of granular tissue noted. Patient had another subcutaneous excisional debridement performed to the aforementioned ulcer site as noted in the clinical panel. The ulcer site was then dressed with Aquacel Ag to the base followed by a dry sterile dressing and Tubigrip for compression. The patient is to change her dressing in this manner on a daily basis. Continued importance of offloading the ulcer site was stressed in great detail again today. The patient has a half shoe on the right side to completely offload each ulcer site as well as wears an open toed shoe to the left side to keep the pressure off the distal hallux. Patient is to continue with these as well as her knee scooter to keep the area is completely offloaded. Currently there are no clinical signs of local infection. LEAS and venous Doppler exams were ordered. 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 There is also evidence of incompetence of the veins in the left lower extremity. A note from Dr. Burrell reports that they checked a duplex and she has some right peroneal and posterior tibial occlusive disease. He says that she has good direct line flow through her anterior tibial that appears adequate. He states that if her wound worsens then he would plan an angiogram. He plans to see her back in a couple months for another follow-up. The importance of a high-protein diet was stressed with this patient today in order to help optimize ulcer healing potential. The patient was educated on all signs and symptoms of local and systemic infection she was instructed to go to the emergency room immediately should she notice any of these. All other questions were answered the patient's satisfaction. Patient will follow back up in clinic in 1 week to check on progress, or sooner if needed before then.
[2019-05-10 08:51] VITALS: BP 130/70; PULSE 74; RESP 18; TEMP 36.2; BMI 32.3
--- NOTE | 2019-05-10 09:45 | PCM.WC.PN ---
(1) Ulcer of right foot with fat layer exposed Status: Acute Current Visit: No Code(s): L97.512 - Non-pressure chronic ulcer of other part of right foot with fat layer exposed (2) Chronic ulcer of left foot with fat layer exposed Status: Chronic Current Visit: No Code(s): L97.522 - Non-pressure chronic ulcer of other part of left foot with fat layer exposed (3) Type 2 diabetes mellitus with diabetic polyneuropathy Status: Acute Current Visit: No Code(s): E11.42 - Type 2 diabetes mellitus with diabetic polyneuropathy (4) PVD (peripheral vascular disease) Status: Suspected Current Visit: No Code(s): I73.9 - Peripheral vascular disease, unspecified (5) Lower extremity edema Status: Acute Current Visit: No Code(s): R60.0 - Localized edema Type of Wound Date of Service: 05/10/19 Chief Complaint: ulcers to right and left foot History of Wound: This 63-year-old diabetic female presents to the office today with her after being referred by her building analyst/supervisor for ulcers sub-right first metatarsal head, right dorsal fourth toe, and distal left hallux. The patient states that she had an issue with her sub-right first metatarsal head ulcer about 4 years ago, and that she had had a previous surgery in the area and that everything eventually healed up. She relates recently that about 3 weeks ago she got a pair of new diabetic shoes and that these new 3 ulcers all appeared. She says she has been treating them with what she thinks is Silvadene and a dressing over top. She has been trying to keep the areas offloaded with a half shoe to the right foot and an open toed shoe to the left foot so no pressure is applied to the ulcer sites. She is also using a scooter. She and her feel the areas have been slowly improving, but were referred here for further care. Patient denies noticing any purulence to the areas or any extending redness. Currently the patient denies any feelings of nausea, vomiting, fever, chills. Progress of Wound: Ulcer shows slight improvement. Patient denies any feelings of nausea, vomiting, fever, chills. - Physical Exam Vital Signs Temp Pulse Resp BP 97.1 F L 74 18 130/70 H 05/10/19 08:51 05/10/19 08:51 05/10/19 08:51 05/10/19 08:51 General: Alert, Oriented x3, Cooperative, No apparent distress Extremities: Capillary Refill Less than 3 Seconds - To all digits of each foot, No Calf Tenderness - Negative Azra and Valencia signs bilateral, Diminished Peripheral Pulses - DP pulses palpable and PT pulses nonpalpable bilateral, Edema - Bilateral lower extremity edema Skin: Ulcer/ Wound - Ulcer sub-right first metatarsal head with fat layer exposed. Base is a mixture of adherent slough, fibrin, devitalized subcutaneous tissue, increasing grannular tissue, and slight surrounding hyperkeratotic tissue. There is no purulence, no malodor, no surrounding or extending cellulitis, no significant increase in warmth, no probing to bone, no tracking, no undermining. Wound Measurements and Assessment WC - Nurse 1 - General Ulcer Measurement Start: 04/26/19 09:08 Freq: Status: Active Protocol: Activity Type Activity Date Activity User E-Sign Co-Sign Detail Recorded Client Recorded Date Recorded By Document 05/10/19 08:51 [email or web address] [id number] 05/10/19 08:54 05/10/19 08:51 Wound Center Nurse 1 [Ulcer Assessment] 2-right 1st metatarsal -Combined with other wound No -Current Size (cm) - Length 0.6 -Current Size (cm) - Width 0.6 -Current Size (cm) - Depth 0.2 -Total Square Cm 0.36 -Photo Taken No -Epithelialization Small 1-33% -Tunneling No -Undermining/Tunneling No -Circular Undermining No -Exudate Amt Small -Exudate Type Serosanguineous -Wound Margin Flat & Intact -Granulation Amt Large (67-100%) -Granulation Quality Red -Slough/Fibrin Yes -Necrosis Amt Small (1-33%) -Necrotic Tissue Type Adherent Slough -Structure Exposed N/A -Texture (Shannan-wound Skin Appearance) Assessed,Callus -Moisture (Shannan-wound Skin Appearance Assessed,Dry/ ) Scaly -Color (Shannan-wound Skin Appearance) Assessed -Temperature (Shannan-wound Skin No Abnormality Appearance) (Pt Warm) -Tenderness on Palpation (Shannan-wound No Skin Appearance) -Ulcer Cleansing Rinsed/ Irrigated with Saline -Foul Odor after Cleansing No [Edema Assessment] -Lower Limb Edema Present No Musculoskeletal: No Tenderness to Palpation of Joints or Extremities, - - Dorsally contracted digits bilateral Neurological: - - Epicritic sensation diminished to bilateral lower extremities consistent with patient's diabetic neuropathy status Psych/Mental Status: Normal Affect, Appropriate Debridement Note Post-Debridement Measurements/Treatment WC - Nurse 2 - General Ulcer CM Notes Start: 04/26/19 09:08 Freq: Status: Active Protocol: Activity Type Activity Date Activity User E-Sign Co-Sign Detail Recorded Client Recorded Date Recorded By Document 04/26/19 09:29 [email or web address] 04/26/19 09:38 MD Document 05/03/19 09:14 [id number] 05/03/19 09:16 04/26/19 05/03/19 09:29 09:14 Wound Center Nurse 2 2-right 1st metatarsal -Time 09:30 09:15 -Correct Patient Yes Yes -Correct Side, Site, Position Yes Yes -Correct Procedure Yes Yes -Procedure Performed Yes Yes -Type of Procedure Debridement Debridement -Clinical Debridement Subcutaneous Subcutaneous -Post Debridement Size (cm) - Length 0.7 0.7 -Post Debridement Size (cm) - Width 0.7 0.7 -Post Debridement Size (cm) - Depth 3 0.3 -Total Square Cm 0.49 0.49 -Wound/Ulcer Outcome Not Healed Not Healed -Ulcer Cleansing Rinsed/ Rinsed/ Irrigated with Irrigated with Saline Saline -Foul Odor after Cleansing No No -Bioengineered Tissue No No -Bleeding Controlled with Pressure Pressure -Offloading Yes -Type of Offloading Surgical Shoe Surgical Shoe -Treatment Response Procedure Procedure Tolerated Well Tolerated Well Pain Scale: 0-10 Numeric Is Patient Pain Free? Yes Yes Wound debrided: Right sub-first MPJ Laterality: Right Type of Debridement: Excisional debridement Anesthesia Used: 5% Lidocaine Gel Depth: in the subcutaneous layer Percentage of wound debrided: 100 Instrument Used: 3mm curette Tissue Removed: Devitalized subq tissue, adherent slough, fibrin, hyperkeratotic skin Severity: Fat Layer Exposed Amount of bleeding with debridement: Mild Bleeding Controlled with: Pressure Patient tolerated procedure well Assessment/Plan Assessment: As noted above Plan: Patient was carefully examined and evaluated again today in detail. Ulcer size slightly smaller with increasing amount of granular tissue noted. Patient had another subcutaneous excisional debridement performed to the aforementioned ulcer site as noted in the clinical panel. The ulcer site was then dressed with Aquacel Ag to the base followed by a dry sterile dressing and Tubigrip for compression. The patient is to change her dressing in this manner on a daily basis. Continued importance of offloading the ulcer site was stressed in great detail again today. The patient has a half shoe on the right side to completely offload each ulcer site as well as wears an open toed shoe to the left side to keep the pressure off the distal hallux. Patient is to continue with these as well as her knee scooter to keep the area is completely offloaded. Currently there are no clinical signs of local infection. At earlier visit, LEAS and venous Doppler exams were ordered. 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 There is also evidence of incompetence of the veins in the left lower extremity. A note from Dr. Burrell reports that they checked a duplex and she has some right peroneal and posterior tibial occlusive disease. He says that she has good direct line flow through her anterior tibial that appears adequate. He states that if her wound worsens then he would plan an angiogram. He plans to see her back in a couple months for another follow-up. The importance of a high-protein diet was stressed with this patient today in order to help optimize ulcer healing potential. The patient was educated on all signs and symptoms of local and systemic infection she was instructed to go to the emergency room immediately should she notice any of these. All other questions were answered the patient's satisfaction. Patient will follow back up in clinic in 2 weeks to check on progress, or sooner if needed before then.
== END 2019-05-19 23:59 ==
LOC: WC 08:45
PROVIDERS: Family Provider Family Medicine; PCP Family Medicine; Referring Provider Podiatrist; Visit Provider Podiatrist
DX: E11.621 Type 2 diabetes mellitus with foot ulcer (principal); E11.42 Type 2 diabetes mellitus with diabetic polyneuropathy; E11.51 Type 2 diabetes mellitus with diabetic peripheral angiopathy without gangrene; R60.0 Localized edema; L97.522 Non-pressure chronic ulcer of other part of left foot with fat layer exposed
CPT/HCPCS: 11042

== ENCOUNTER 2019-06-07 10:30 | Outpatient (RCR) | payer SELFPAY ==
[2019-05-20 00:50] VITALS: BP 130/70; PULSE 74; RESP 18; TEMP 36.2
[2019-05-24 13:36] VITALS: BP 146/79; PULSE 72; RESP 18; TEMP 36.6; BMI 32.3
--- NOTE | 2019-05-24 17:07 | PCM.WC.PN ---
(1) Ulcer of right foot with fat layer exposed Status: Chronic Current Visit: No Code(s): L97.512 - Non-pressure chronic ulcer of other part of right foot with fat layer exposed (2) Type 2 diabetes mellitus with diabetic polyneuropathy Status: Chronic Current Visit: No Code(s): E11.42 - Type 2 diabetes mellitus with diabetic polyneuropathy (3) PVD (peripheral vascular disease) Status: Suspected Current Visit: No Code(s): I73.9 - Peripheral vascular disease, unspecified Type of Wound Date of Service: 05/25/19 Chief Complaint: Right foot ulcer History of Wound: Patient is here today for follow-up visit for R foot ulcer. Courtesy visit for Dr. Prather. This 63-year-old diabetic female presented to the [facility] with her after being referred by her systems qa analyst for ulcers sub-right first metatarsal head, right dorsal fourth toe, and distal left hallux. The patient states that she had an issue with her sub-right first metatarsal head ulcer about 4 years ago, and that she had had a previous surgery in the area and that everything eventually healed up. She relates that about 3 weeks prior to Wound Center visit she got a pair of new diabetic shoes and that these new 3 ulcers all appeared. She had been treating them with what she thinks is Silvadene and a dressing over top. She had been trying to keep the areas offloaded with a half shoe to the right foot and an open toed shoe to the left foot so no pressure is applied to the ulcer sites. She is also using a scooter. She and her felt the areas have been slowly improving, but were referred here for further care. Patient denies noticing any purulence to the areas or any extending redness. Currently the patient denies any feelings of nausea, vomiting, fever, chills. Progress of Wound: No improvement of ulcer today. The patient otherwise denies any fever, chills, nausea, vomiting, or diarrhea. Denies any signs of infection, including increasing pain, redness, swelling, or drainage from affected area. - Physical Exam Vital Signs Temp Pulse Resp BP 97.8 F 72 18 146/79 H 05/24/19 13:36 05/24/19 13:36 05/24/19 13:36 05/24/19 13:36 General: Alert, Oriented x3, Cooperative, No apparent distress HEENT: Atraumatic, EOMI, Normocephalic Extremities: No clubbing, No cyanosis, Capillary Refill Less than 3 Seconds, Peripheral Pulses Normal Skin: Ulcer/ Wound - see nursing note; no signs of infection, no erythema, swelling, or purulent drainage Wound Measurements and Assessment WC - Nurse 1 - General Ulcer Measurement Start: 05/24/19 13:36 Freq: Status: Active Protocol: Activity Type Activity Date Activity User E-Sign Co-Sign Detail Recorded Client Recorded Date Recorded By Document 05/24/19 13:36 RB [id number] 05/24/19 13:39 RB 05/24/19 13:36 Wound Center Nurse 1 [Ulcer Assessment] 2-right 1st metatarsal -Combined with other wound No -Current Size (cm) - Length 0.4 -Current Size (cm) - Width 0.4 -Current Size (cm) - Depth 0.3 -Total Square Cm 0.16 -Photo Taken No -Tunneling No -Undermining/Tunneling No -Circular Undermining No -Exudate Amt Small -Exudate Type Serosanguineous -Wound Margin Thickened -Granulation Amt Medium (34-66%) -Granulation Quality [place] -Slough/Fibrin Yes -Necrosis Amt Small (1-33%) -Necrotic Tissue Type Adherent Slough -Structure Exposed N/A -Texture (Shannan-wound Skin Appearance) Assessed -Moisture (Shannan-wound Skin Appearance Assessed ) -Color (Shannan-wound Skin Appearance) Assessed -Temperature (Shannan-wound Skin No Abnormality Appearance) (Pt Warm) -Tenderness on Palpation (Shannan-wound No Skin Appearance) -Ulcer Cleansing Wound Cleanser -Foul Odor after Cleansing No -Anesthetic Used 5% Lidocaine Gel [Edema Assessment] -Lower Limb Edema Present Yes -Right Calf (cm) 42 -Right Ankle (cm) 23.2 WC - Nurse 2 - General Ulcer CM Notes Start: 05/24/19 13:36 Freq: Status: Active Protocol: Activity Type Activity Date Activity User E-Sign Co-Sign Detail Recorded Client Recorded Date Recorded By Document 05/24/19 14:07 DV [id number] 05/24/19 14:14 DV 05/24/19 14:07 Wound Center Nurse 2 [Procedure/Treatment] 2-right 1st metatarsal -Time 14:13 -Correct Patient Yes -Correct Side, Site, Position Yes -Correct Procedure Yes -Procedure Performed Yes -Type of Procedure Debridement -Clinical Debridement Subcutaneous -Post Debridement Size (cm) - Length 0.6 -Post Debridement Size (cm) - Width 0.6 -Post Debridement Size (cm) - Depth 0.4 -Total Square Cm 0.36 -Wound/Ulcer Outcome Not Healed -Ulcer Cleansing Rinsed/ Irrigated with Saline -Foul Odor after Cleansing No -Bleeding Controlled with Pressure -Offloading No -Treatment Response Procedure Tolerated Well [See Physician Procedure note for Specifics] Pain Scale: 0-10 Numeric [Pain] -Is Patient Pain Free? Yes Neurological: Neuro grossly intact Psych/Mental Status: Normal Affect, Appropriate Debridement Note Post-Debridement Measurements/Treatment WC - Nurse 2 - General Ulcer CM Notes Start: 05/24/19 13:36 Freq: Status: Active Protocol: Activity Type Activity Date Activity User E-Sign Co-Sign Detail Recorded Client Recorded Date Recorded By Document 05/24/19 14:07 DV [id number] 05/24/19 14:14 DV 05/24/19 14:07 Wound Center Nurse 2 2-right 1st metatarsal -Time 14:13 -Correct Patient Yes -Correct Side, Site, Position Yes -Correct Procedure Yes -Procedure Performed Yes -Type of Procedure Debridement -Clinical Debridement Subcutaneous -Post Debridement Size (cm) - Length 0.6 -Post Debridement Size (cm) - Width 0.6 -Post Debridement Size (cm) - Depth 0.4 -Total Square Cm 0.36 -Wound/Ulcer Outcome Not Healed -Ulcer Cleansing Rinsed/ Irrigated with Saline -Foul Odor after Cleansing No -Bleeding Controlled with Pressure -Offloading No -Treatment Response Procedure Tolerated Well Pain Scale: 0-10 Numeric Is Patient Pain Free? Yes Wound debrided: right foot ulcer Laterality: Right Type of Debridement: Excisional debridement Anesthesia Used: 5% Lidocaine Gel Depth: in the subcutaneous layer Percentage of wound debrided: 100 Instrument Used: 5mm curette Tissue Removed: slough and devitalized tissue Severity: Fat Layer Exposed Amount of bleeding with debridement: Mild Bleeding Controlled with: Compression and gauze Patient tolerated procedure well Assessment/Plan Assessment: As noted above Plan: Patient seen as courtesy visit for Dr. Prather. Patient was carefully examined and evaluated again today in detail. No improvement in size of R foot ulcer, so we will try changing from Aquacel Ag to Promogran for the next week. Excisional debridement performed in office as described in clinical panel. The ulcer site was then dressed with Promogran to the base followed by a dry sterile dressing and Tubigrip for compression. The patient is to change her dressing in this manner on a daily basis. Continued importance of offloading the ulcer site was stressed in great detail again today. The patient has a half shoe on the right side to completely offload each ulcer site as well as wears an open toed shoe to the left side to keep the pressure off the distal hallux. Patient is to continue with these as well as her knee scooter to keep the area is completely offloaded. Currently there are no clinical signs of local infection. At earlier visit, LEAS and venous Doppler exams were ordered. 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 There is also evidence of incompetence of the veins in the left lower extremity. A note from Dr. Burrell reports that they checked a duplex and she has some right peroneal and posterior tibial occlusive disease. He says that she has good direct line flow through her anterior tibial that appears adequate. He states that if her wound worsens then he would plan an angiogram. He plans to see her back in a couple months for another follow-up. The importance of a high-protein diet was stressed with this patient today in order to help optimize ulcer healing potential. The patient was educated on all signs and symptoms of local and systemic infection she was instructed to go to the emergency room immediately should she notice any of these. All other questions were answered the patient's satisfaction. Patient will follow back up in clinic in 1 week to check on progress, or sooner if needed before then. Code Visit [id number]: [id number] Melissa subq tissue 20 sq cm/<
[2019-05-31 14:13] VITALS: BP 140/70; PULSE 90; RESP 16; TEMP 35.8; BMI 32.3
--- NOTE | 2019-05-31 14:43 | PCM.WC.PN ---
(1) Ulcer of right foot with fat layer exposed Status: Chronic Current Visit: No Code(s): L97.512 - Non-pressure chronic ulcer of other part of right foot with fat layer exposed (2) Type 2 diabetes mellitus with diabetic polyneuropathy Status: Chronic Current Visit: No Code(s): E11.42 - Type 2 diabetes mellitus with diabetic polyneuropathy (3) PVD (peripheral vascular disease) Status: Suspected Current Visit: No Code(s): I73.9 - Peripheral vascular disease, unspecified Type of Wound Date of Service: 05/31/19 Chief Complaint: Right foot ulcer History of Wound: This 63-year-old diabetic female presented to the Wound Clinic with her after being referred by her educational diagnostician for ulcers sub-right first metatarsal head, right dorsal fourth toe, and distal left hallux. The patient states that she had an issue with her sub-right first metatarsal head ulcer about 4 years ago, and that she had had a previous surgery in the area and that everything eventually healed up. She relates that about 3 weeks prior to Wound Center visit she got a pair of new diabetic shoes and that these new 3 ulcers all appeared. She had been treating them with what she thinks is Silvadene and a dressing over top. She had been trying to keep the areas offloaded with a half shoe to the right foot and an open toed shoe to the left foot so no pressure is applied to the ulcer sites. She is also using a scooter. She and her felt the areas have been slowly improving, but were referred here for further care. Patient denies noticing any purulence to the areas or any extending redness. Currently the patient denies any feelings of nausea, vomiting, fever, chills. Progress of Wound: Courtesy visit for Dr. Prather. No improvement of ulcer today. The patient denies any fever, chills, nausea, vomiting, or diarrhea. Denies any signs of infection, including increasing pain, redness, swelling, or drainage from affected area. At last visit, patient was changed from daily Aquacel AG dressing change to daily dressing change with Promogran. Wound has been very dry, and Promogran has been adherent to wound bed. - Physical Exam Vital Signs Temp Pulse Resp BP 96.4 F L 90 16 140/70 H 05/31/19 14:13 05/31/19 14:13 05/31/19 14:13 05/31/19 14:13 General: Alert, Oriented x3, Cooperative, No apparent distress HEENT: Atraumatic, EOMI, Normocephalic Extremities: No clubbing, No cyanosis, Capillary Refill Less than 3 Seconds, Diminished Peripheral Pulses, Edema - Bilateral lower extremity edema Skin: Ulcer/ Wound - Right foot DFU of first metatarsal; see nursing documentation. No signs of infection, no erythema, no swelling, no drainage, no probing to bone. No tenderness. Wound Measurements and Assessment WC - Nurse 1 - General Ulcer Measurement Start: 05/24/19 13:36 Freq: Status: Active Protocol: Activity Type Activity Date Activity User E-Sign Co-Sign Detail Recorded Client Recorded Date Recorded By Document 05/31/19 14:13 [facility] [id number] 05/31/19 14:18 [facility] 05/31/19 14:13 Wound Center Nurse 1 [Ulcer Assessment] 2-right 1st metatarsal -Combined with other wound No -Current Size (cm) - Length 0.1 -Current Size (cm) - Width 0.1 -Current Size (cm) - Depth 0.1 -Total Square Cm 0.01 -Photo Taken No -Epithelialization None Present -Tunneling No -Undermining/Tunneling No -Circular Undermining No -Exudate Amt Small -Exudate Type Serosanguineous -Wound Margin Flat & Intact -Granulation Amt None Present (0 %) -Slough/Fibrin Yes -Necrosis Amt Large (67-100%) -Necrotic Tissue Type Adherent Slough -Texture (Shannan-wound Skin Appearance) Assessed, Scarring -Moisture (Shannan-wound Skin Appearance Assessed,Dry/ ) Scaly -Color (Shannan-wound Skin Appearance) Assessed -Temperature (Shannan-wound Skin No Abnormality Appearance) (Pt Warm) -Tenderness on Palpation (Shannan-wound No Skin Appearance) -Ulcer Cleansing Rinsed/ Irrigated with Saline -Foul Odor after Cleansing No -Anesthetic Used 5% Lidocaine Gel WC - Nurse 2 - General Ulcer CM Notes Start: 05/24/19 13:36 Freq: Status: Active Protocol: Activity Type Activity Date Activity User E-Sign Co-Sign Detail Recorded Client Recorded Date Recorded By Document 05/31/19 14:38 DV [id number] 05/31/19 14:41 DV 05/31/19 14:38 Wound Center Nurse 2 [Procedure/Treatment] -Time 14:39 -Correct Patient Yes -Correct Side, Site, Position Yes -Correct Procedure Yes -Procedure Performed Yes -Type of Procedure Debridement -Clinical Debridement Subcutaneous -Post Debridement Size (cm) - Length 0.6 -Post Debridement Size (cm) - Width 0.6 -Post Debridement Size (cm) - Depth 0.4 -Total Square Cm 0.36 -Wound/Ulcer Outcome Not Healed -Ulcer Cleansing Rinsed/ Irrigated with Saline -Foul Odor after Cleansing No -Bioengineered Tissue No -Bleeding Controlled with Pressure -Offloading No -Type of Offloading Wedge Shoe -Treatment Response Procedure Tolerated Well [See Physician Procedure note for Specifics] Pain Scale: 0-10 Numeric [Pain] -Is Patient Pain Free? Yes Psych/Mental Status: Normal Affect, Appropriate Debridement Note Post-Debridement Measurements/Treatment WC - Nurse 2 - General Ulcer CM Notes Start: 05/24/19 13:36 Freq: Status: Active Protocol: Activity Type Activity Date Activity User E-Sign Co-Sign Detail Recorded Client Recorded Date Recorded By Document 05/24/19 14:07 DV [id number] 05/24/19 14:14 DV Document 05/31/19 14:38 DV [id number] 05/31/19 14:41 DV 05/24/19 05/31/19 14:07 14:38 Wound Center Nurse 2 2-right 1st metatarsal -Time 14:13 14:39 -Correct Patient Yes Yes -Correct Side, Site, Position Yes Yes -Correct Procedure Yes Yes -Procedure Performed Yes Yes -Type of Procedure Debridement Debridement -Clinical Debridement Subcutaneous Subcutaneous -Post Debridement Size (cm) - Length 0.6 0.6 -Post Debridement Size (cm) - Width 0.6 0.6 -Post Debridement Size (cm) - Depth 0.4 0.4 -Total Square Cm 0.36 0.36 -Wound/Ulcer Outcome Not Healed Not Healed -Ulcer Cleansing Rinsed/ Rinsed/ Irrigated with Irrigated with Saline Saline -Foul Odor after Cleansing No No -Bioengineered Tissue No -Bleeding Controlled with Pressure Pressure -Offloading No No -Type of Offloading Wedge Shoe -Treatment Response Procedure Procedure Tolerated Well Tolerated Well Pain Scale: 0-10 Numeric Is Patient Pain Free? Yes Yes Wound debrided: Right foot ulcer of first metatarsal Laterality: Right Type of Debridement: Excisional debridement Anesthesia Used: 5% Lidocaine Gel Depth: in the subcutaneous layer Percentage of wound debrided: 100 Instrument Used: 3mm curette Tissue Removed: Slough and devitalized tissue Severity: Fat Layer Exposed Amount of bleeding with debridement: Mild Bleeding Controlled with: Pressure Patient tolerated procedure well Assessment/Plan Assessment: As noted above Plan: Patient seen as courtesy visit for Dr. Prather. Patient was carefully examined and evaluated again today in detail. No improvement in size of R foot ulcer, since changing from Aquacel Ag to Promogran last week. Wound bed is very dry, and Promogran is very adherent to wound bed. We will try hydrating wound bed with hydrogel prior to application of Promogran dressing for the next week. Excisional debridement performed in office as described in clinical panel. The ulcer site was then dressed with hydrogel and Promogran to the base, followed by a dry sterile dressing. Using Tubigrip for compression. The patient is to change her dressing in this manner on a daily basis. Continued importance of offloading the ulcer site was stressed in great detail again today. The patient has a half shoe on the right side to completely offload ulcer site. Patient is to continue with this, as well as her knee scooter to keep the area completely offloaded. Currently there are no clinical signs of local infection. At earlier visit, LEAS and venous Doppler exams were ordered. 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 There is also evidence of incompetence of the veins in the left lower extremity. A note from Dr. Burrell reports that they checked a duplex and she has some right peroneal and posterior tibial occlusive disease. He says that she has good direct line flow through her anterior tibial that appears adequate. He states that if her wound worsens then he would plan an angiogram. He plans to see her back in a couple months for another follow-up. The importance of a high-protein diet was stressed with this patient today in order to help optimize ulcer healing potential. The patient was educated on all signs and symptoms of local and systemic infection she was instructed to go to the emergency room immediately should she notice any of these. All other questions were answered the patient's satisfaction. Patient will follow back up in clinic in 1 week to check on progress, or sooner if needed before then. Code Visit [id number]: [id number] Melissa subq tissue 20 sq cm/<
[2019-06-07 10:34] VITALS: RESP 16; TEMP 36.3; BMI 32.3
--- NOTE | 2019-06-07 11:07 | PCM.WC.PN ---
(1) Ulcer of right foot with fat layer exposed Status: Chronic Current Visit: No Code(s): L97.512 - Non-pressure chronic ulcer of other part of right foot with fat layer exposed (2) Type 2 diabetes mellitus with diabetic polyneuropathy Status: Chronic Current Visit: No Code(s): E11.42 - Type 2 diabetes mellitus with diabetic polyneuropathy (3) PVD (peripheral vascular disease) Status: Suspected Current Visit: No Code(s): I73.9 - Peripheral vascular disease, unspecified (4) Lower extremity edema Status: Acute Current Visit: No Code(s): R60.0 - Localized edema Type of Wound Date of Service: 06/07/19 Chief Complaint: Right foot ulcer History of Wound: This 63-year-old diabetic female presented to [facility] with her after being referred by her branch or department chief librarian for ulcers sub-right first metatarsal head, right dorsal fourth toe, and distal left hallux. The patient states that she had an issue with her sub-right first metatarsal head ulcer about 4 years ago, and that she had had a previous surgery in the area and that everything eventually healed up. She relates that about 3 weeks prior to Wound Center visit she got a pair of new diabetic shoes and that these new 3 ulcers all appeared. She had been treating them with what she thinks is Silvadene and a dressing over top. She had been trying to keep the areas offloaded with a half shoe to the right foot and an open toed shoe to the left foot so no pressure is applied to the ulcer sites. She is also using a scooter. She and her felt the areas have been slowly improving, but were referred here for further care. Patient denies noticing any purulence to the areas or any extending redness. Currently the patient denies any feelings of nausea, vomiting, fever, chills. Progress of Wound: Ulcer shows slight improvement. Patient denies any feelings of nausea, vomiting, fever, chills. - Physical Exam Vital Signs Temp Pulse Resp BP 97.4 F L 90 16 140/70 H 06/07/19 10:34 05/31/19 14:13 06/07/19 10:34 05/31/19 14:13 General: Alert, Oriented x3, Cooperative, No apparent distress Extremities: Capillary Refill Less than 3 Seconds - To all digits of each foot, No Calf Tenderness - Negative Azra and Valencia signs bilateral, Diminished Peripheral Pulses - DP pulses palpable and PT pulses nonpalpable bilateral, Edema - Bilateral lower extremity edema Skin: Ulcer/ Wound - Ulcer sub-right first metatarsal head with fat layer exposed. Base is a mixture of adherent slough, fibrin, devitalized subcutaneous tissue, increasing grannular tissue, and slight surrounding hyperkeratotic tissue. There is no purulence, no malodor, no surrounding or extending cellulitis, no significant increase in warmth, no probing to bone, no tracking, no undermining. Wound Measurements and Assessment WC - Nurse 1 - General Ulcer Measurement Start: 05/24/19 13:36 Freq: Status: Active Protocol: Activity Type Activity Date Activity User E-Sign Co-Sign Detail Recorded Client Recorded Date Recorded By Document 06/07/19 10:34 BM [id number] 06/07/19 10:43 BMF 06/07/19 10:34 Wound Center Nurse 1 [Ulcer Assessment] 2-right 1st metatarsal -Combined with other wound No -Current Size (cm) - Length 0.4 -Current Size (cm) - Width 0.3 -Current Size (cm) - Depth 0.3 -Total Square Cm 0.12 -Date of Last Picture (Recall this 06/07/19 field) -Photo Taken Yes -Epithelialization None Present -Tunneling No -Undermining/Tunneling No -Circular Undermining No -Exudate Amt Small -Exudate Type Serous -Wound Margin Distinct, Outline Attached -Granulation Amt Large (67-100%) -Granulation Quality [place] -Slough/Fibrin Yes -Necrosis Amt Small (1-33%) -Necrotic Tissue Type Adherent Slough -Texture (Shannan-wound Skin Appearance) Assessed, Scarring -Moisture (Shannan-wound Skin Appearance Assessed,Dry/ ) Scaly -Color (Shannan-wound Skin Appearance) Assessed -Temperature (Shannan-wound Skin No Abnormality Appearance) (Pt Warm) -Tenderness on Palpation (Shannan-wound No Skin Appearance) -Ulcer Cleansing Rinsed/ Irrigated with Saline -Foul Odor after Cleansing No -Anesthetic Used 5% Lidocaine Gel [Edema Assessment] -Lower Limb Edema Present Yes -Right Calf (cm) 40.4 -Right Ankle (cm) 22.5 WC - Nurse 2 - General Ulcer CM Notes Start: 05/24/19 13:36 Freq: Status: Active Protocol: Activity Type Activity Date Activity User E-Sign Co-Sign Detail Recorded Client Recorded Date Recorded By Document 06/07/19 10:55 DV [id number] 06/07/19 10:58 DV 06/07/19 10:55 Wound Center Nurse 2 [Procedure/Treatment] 2-right 1st metatarsal -Time 10:56 -Correct Patient Yes -Correct Side, Site, Position Yes -Correct Procedure Yes -Procedure Performed Yes -Type of Procedure Debridement -Clinical Debridement Subcutaneous -Post Debridement Size (cm) - Length 0.6 -Post Debridement Size (cm) - Width 0.5 -Post Debridement Size (cm) - Depth 0.3 -Total Square Cm 0.30 -Wound/Ulcer Outcome Not Healed -Ulcer Cleansing Rinsed/ Irrigated with Saline -Foul Odor after Cleansing No -Bioengineered Tissue No -Bleeding Controlled with Pressure -Offloading No -Type of Offloading Wedge Shoe -Treatment Response Procedure Tolerated Well [See Physician Procedure note for Specifics] Pain Scale: 0-10 Numeric [Pain] -Is Patient Pain Free? Yes Musculoskeletal: No Tenderness to Palpation of Joints or Extremities, - - Dorsally contracted digits bilateral Neurological: - - Epicritic sensation diminished to bilateral lower extremities consistent with patient's diabetic neuropathy status Psych/Mental Status: Normal Affect, Appropriate Debridement Note Post-Debridement Measurements/Treatment WC - Nurse 2 - General Ulcer CM Notes Start: 05/24/19 13:36 Freq: Status: Active Protocol: Activity Type Activity Date Activity User E-Sign Co-Sign Detail Recorded Client Recorded Date Recorded By Document 05/24/19 14:07 DV [id number] 05/24/19 14:14 DV Document 05/31/19 14:38 DV [id number] 05/31/19 14:41 DV Document 06/07/19 10:55 DV [id number] 06/07/19 10:58 DV 05/24/19 05/31/19 06/07/19 14:07 14:38 10:55 Wound Center Nurse 2 2-right 1st metatarsal -Time 14:13 14:39 10:56 -Correct Patient Yes Yes Yes -Correct Side, Site, Position Yes Yes Yes -Correct Procedure Yes Yes Yes -Procedure Performed Yes Yes Yes -Type of Procedure Debridement Debridement Debridement -Clinical Debridement Subcutaneous Subcutaneous Subcutaneous -Post Debridement Size (cm) - Length 0.6 0.6 0.6 -Post Debridement Size (cm) - Width 0.6 0.6 0.5 -Post Debridement Size (cm) - Depth 0.4 0.4 0.3 -Total Square Cm 0.36 0.36 0.30 -Wound/Ulcer Outcome Not Healed Not Healed Not Healed -Ulcer Cleansing Rinsed/ Rinsed/ Rinsed/ Irrigated with Irrigated with Irrigated with Saline Saline Saline -Foul Odor after Cleansing No No No -Bioengineered Tissue No No -Bleeding Controlled with Pressure Pressure Pressure -Offloading No No No -Type of Offloading Wedge Shoe Wedge Shoe -Treatment Response Procedure Procedure Procedure Tolerated Well Tolerated Well Tolerated Well Pain Scale: 0-10 Numeric Is Patient Pain Free? Yes Yes Yes Wound debrided: Right sub-first MPJ Laterality: Right Type of Debridement: Excisional debridement Anesthesia Used: 4% Lidocaine Solution Depth: in the subcutaneous layer Percentage of wound debrided: 100 Instrument Used: 3mm curette Tissue Removed: Devitalized subcutaneous tissue, adherent slough, fibrin, hpk skin Severity: Fat Layer Exposed Amount of bleeding with debridement: Mild Bleeding Controlled with: Pressure Patient tolerated procedure well Assessment/Plan Assessment: As noted above Plan: Patient was carefully examined and evaluated again today in detail. Ulcer size slightly improved. Patient had another subcutaneous excisional debridement performed to the aforementioned ulcer site as noted in the clinical panel. The ulcer site was then dressed with Ninoska to the base followed by a dry sterile dressing and Tubigrip for compression. The patient is to change her dressing in this manner on a daily basis. Continued importance of offloading the ulcer site was stressed in great detail again today. The patient has a half shoe on the right side to completely offload each ulcer site as well as wears an open toed shoe to the left side to keep the pressure off the distal hallux. Patient is to continue with these as well as her knee scooter to keep the area is completely offloaded. Currently there are no clinical signs of local infection. At earlier visit, LEAS and venous Doppler exams were ordered. 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 There is also evidence of incompetence of the veins in the left lower extremity. A note from Dr. Burrell reports that they checked a duplex and she has some right peroneal and posterior tibial occlusive disease. He says that she has good direct line flow through her anterior tibial that appears adequate. He states that if her wound worsens then he would plan an angiogram. He plans to see her back in a couple months for another follow-up. The importance of a high-protein diet was stressed with this patient today in order to help optimize ulcer healing potential. The patient was educated on all signs and symptoms of local and systemic infection she was instructed to go to the emergency room immediately should she notice any of these. All other questions were answered the patient's satisfaction. Patient will follow back up in clinic in 2 weeks to check on progress, or sooner if needed before then.
== END 2019-06-19 23:59 ==
LOC: WC 10:30
PROVIDERS: Family Provider Family Medicine; PCP Family Medicine; Referring Provider Podiatrist; Visit Provider Podiatrist
DX: E11.621 Type 2 diabetes mellitus with foot ulcer (principal); L97.512 Non-pressure chronic ulcer of other part of right foot with fat layer exposed; E11.42 Type 2 diabetes mellitus with diabetic polyneuropathy; E11.51 Type 2 diabetes mellitus with diabetic peripheral angiopathy without gangrene
CPT/HCPCS: 11042

== ENCOUNTER 2019-07-19 09:00 | Outpatient (RCR) | payer SELFPAY ==
[2019-06-20 00:37] VITALS: BP 140/70; PULSE 90; RESP 16; TEMP 36.3
[2019-06-21 08:50] VITALS: BP 134/64; PULSE 77; RESP 16; TEMP 36.1; BMI 32.3
--- NOTE | 2019-06-21 09:01 | PN.PCM_ITS ---
(1) Ulcer of right foot with fat layer exposed Status: Chronic Current Visit: No Code(s): L97.512 - Non-pressure chronic ulcer of other part of right foot with fat layer exposed (2) Type 2 diabetes mellitus with diabetic polyneuropathy Status: Chronic Current Visit: No Code(s): E11.42 - Type 2 diabetes mellitus with diabetic polyneuropathy (3) PVD (peripheral vascular disease) Status: Suspected Current Visit: No Code(s): I73.9 - Peripheral vascular disease, unspecified (4) Lower extremity edema Status: Acute Current Visit: No Code(s): R60.0 - Localized edema Type of Wound Date of Service: 06/21/19 Chief Complaint: Right foot ulcer History of Wound: This 63-year-old diabetic female presented to the Wound Clinic with her after being referred by her denial management representative for ulcers sub-right first metatarsal head, right dorsal fourth toe, and distal left hallux. The patient states that she had an issue with her sub-right first metatarsal head ulcer about 4 years ago, and that she had had a previous surgery in the area and that everything eventually healed up. She relates that about 3 weeks prior to Wound Center visit she got a pair of new diabetic shoes and that these new 3 ulcers all appeared. She had been treating them with what she thinks is Silvadene and a dressing over top. She had been trying to keep the areas offloaded with a half shoe to the right foot and an open toed shoe to the left foot so no pressure is applied to the ulcer sites. She is also using a scooter. She and her felt the areas have been slowly improving, but were referred here for further care. Patient denies noticing any purulence to the areas or any extending redness. Currently the patient denies any feelings of nausea, vomiting, fever, chills. Progress of Wound: Ulcer continues to show very slow improvement. Patient denies any feelings of nausea, vomiting, fever, chills. - Physical Exam Vital Signs Temp Pulse Resp BP 96.9 F L 77 16 134/64 H 06/21/19 08:50 06/21/19 08:50 06/21/19 08:50 06/21/19 08:50 General: Alert, Oriented x3, Cooperative, No apparent distress Extremities: Capillary Refill Less than 3 Seconds - To all digits of each foot, No Calf Tenderness - Negative Azra and Valencia signs bilateral, Diminished Peripheral Pulses - DP pulses palpable and PT pulses nonpalpable bilateral, Edema - Bilateral lower extremity edema Skin: Ulcer/ Wound - Ulcer sub-right first metatarsal head with fat layer exposed. Base is a mixture of adherent slough, fibrin, devitalized subcutaneous tissue, majority grannular tissue, and slight surrounding hyperkeratotic tissue. There is no purulence, no malodor, no surrounding or extending cellulitis, no significant increase in warmth, no probing to bone, no tracking, no undermining. Wound Measurements and Assessment WC - Nurse 1 - General Ulcer Measurement Start: 06/21/19 08:50 Freq: Status: Active Protocol: Activity Type Activity Date Activity User E-Sign Co-Sign Detail Recorded Client Recorded Date Recorded By Document 06/21/19 08:50 BMF [id number] 06/21/19 08:54 BMF 06/21/19 08:50 Wound Center Nurse 1 [Ulcer Assessment] 2-right 1st metatarsal -Combined with other wound No -Current Size (cm) - Length 0.3 -Current Size (cm) - Width 0.3 -Current Size (cm) - Depth 0.3 -Total Square Cm 0.09 -Photo Taken No -Epithelialization None Present -Tunneling No -Undermining/Tunneling No -Circular Undermining No -Exudate Amt Small -Exudate Type Serous -Wound Margin Distinct, Outline Attached -Granulation Amt Large (67-100%) -Granulation Quality [place] -Slough/Fibrin No -Necrosis Amt None Present (0 %) -Texture (Shannan-wound Skin Appearance) Assessed,Callus ,Scarring -Moisture (Shannan-wound Skin Appearance Assessed,Dry/ ) Scaly -Color (Shannan-wound Skin Appearance) Assessed -Temperature (Shannan-wound Skin No Abnormality Appearance) (Pt Warm) -Tenderness on Palpation (Shannan-wound No Skin Appearance) -Ulcer Cleansing Rinsed/ Irrigated with Saline -Foul Odor after Cleansing No -Anesthetic Used 5% Lidocaine Gel [Edema Assessment] -Lower Limb Edema Present Yes -Right Calf (cm) 39.1 -Right Ankle (cm) 22.9 Musculoskeletal: No Tenderness to Palpation of Joints or Extremities, - - Dorsally contracted digits bilateral Neurological: - - Epicritic sensation diminished to bilateral lower extremities consistent with patient's diabetic neuropathy status Psych/Mental Status: Normal Affect, Appropriate Debridement Note Wound debrided: Right sub-first MPJ Laterality: Right Type of Debridement: Excisional debridement Anesthesia Used: 4% Lidocaine Solution Depth: in the subcutaneous layer Percentage of wound debrided: 100 Instrument Used: 3mm curette Tissue Removed: Devitalized subcutaneous tissue, adherent slough, fibrin, hpk skin Severity: Fat Layer Exposed Amount of bleeding with debridement: Mild Bleeding Controlled with: Pressure Patient tolerated procedure well Assessment/Plan Assessment: As noted above Plan: Patient was carefully examined and evaluated again today in detail. Very slow continued improvement. Patient had another subcutaneous excisional debridement performed to the aforementioned ulcer site as noted in the clinical panel. The ulcer site was then dressed with Ninoska to the base followed by a dry sterile dressing and Tubigrip for compression. The patient is to change her dressing in this manner on a daily basis. Continued importance of offloading the ulcer site was stressed in great detail again today. The patient has a half shoe on the right side to completely offload each ulcer site as well as wears an open toed shoe to the left side to keep the pressure off the distal hallux. Patient is to continue with these as well as her knee scooter to keep the area is completely offloaded. Currently there are no clinical signs of local infection. At earlier visit, LEAS and venous Doppler exams were ordered. 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 There is also evidence of incompetence of the veins in the left lower extremity. A note from Dr. Burrell reports that they checked a duplex and she has some right peroneal and posterior tibial occlusive disease. He says that she has good direct line flow through her anterior tibial that appears adequate. He states that if her wound worsens then he would plan an angiogram. He plans to see her back in a couple months for another follow-up. The importance of a high-protein diet was stressed with this patient today in order to help optimize ulcer healing potential. The patient was educated on all signs and symptoms of local and systemic infection she was instructed to go to the emergency room immediately should she notice any of these. All other questions were answered the patient's satisfaction. Patient will follow back up in clinic in 1 week to check on progress, or sooner if needed before then.
[2019-06-28 09:00] VITALS: BP 121/61; PULSE 79; RESP 18; TEMP 36.5; BMI 32.3
--- NOTE | 2019-06-28 09:19 | PCM.WC.PN ---
(1) Ulcer of right foot with fat layer exposed Status: Chronic Current Visit: No Code(s): L97.512 - Non-pressure chronic ulcer of other part of right foot with fat layer exposed (2) Type 2 diabetes mellitus with diabetic polyneuropathy Status: Chronic Current Visit: No Code(s): E11.42 - Type 2 diabetes mellitus with diabetic polyneuropathy (3) PVD (peripheral vascular disease) Status: Suspected Current Visit: No Code(s): I73.9 - Peripheral vascular disease, unspecified (4) Lower extremity edema Status: Acute Current Visit: No Code(s): R60.0 - Localized edema Type of Wound Date of Service: 06/28/19 Chief Complaint: Right foot ulcer History of Wound: This 63-year-old diabetic female presented to the [facility] with her after being referred by her hospice patient care secretary for ulcers sub-right first metatarsal head, right dorsal fourth toe, and distal left hallux. The patient states that she had an issue with her sub-right first metatarsal head ulcer about 4 years ago, and that she had had a previous surgery in the area and that everything eventually healed up. She relates that about 3 weeks prior to Wound Center visit she got a pair of new diabetic shoes and that these new 3 ulcers all appeared. She had been treating them with what she thinks is Silvadene and a dressing over top. She had been trying to keep the areas offloaded with a half shoe to the right foot and an open toed shoe to the left foot so no pressure is applied to the ulcer sites. She is also using a scooter. She and her felt the areas have been slowly improving, but were referred here for further care. Patient denies noticing any purulence to the areas or any extending redness. Currently the patient denies any feelings of nausea, vomiting, fever, chills. Progress of Wound: Improvement. Patient denies any feelings of nausea, vomiting, fever, chills. - Physical Exam Vital Signs Temp Pulse Resp BP 97.7 F L 79 18 121/61 H 06/28/19 09:00 06/28/19 09:00 06/28/19 09:00 06/28/19 09:00 General: Alert, Oriented x3, Cooperative, No apparent distress Extremities: Capillary Refill Less than 3 Seconds - To all digits of each foot, No Calf Tenderness - Negative Azra and Valencia signs bilateral, Diminished Peripheral Pulses - DP pulses palpable and PT pulses nonpalpable bilateral, Edema - Bilateral lower extremity edema Skin: Ulcer/ Wound - Ulcer sub-right first metatarsal head with fat layer exposed. Base is a mixture of adherent slough, fibrin, devitalized subcutaneous tissue, majority grannular tissue, and slight surrounding hyperkeratotic tissue. There is no purulence, no malodor, no surrounding or extending cellulitis, no significant increase in warmth, no probing to bone, no tracking, no undermining. Wound Measurements and Assessment WC - Nurse 1 - General Ulcer Measurement Start: 06/21/19 08:50 Freq: Status: Active Protocol: Activity Type Activity Date Activity User E-Sign Co-Sign Detail Recorded Client Recorded Date Recorded By Document 06/28/19 09:00 DL [id number] 06/28/19 09:05 DL 06/28/19 09:00 Wound Center Nurse 1 [Ulcer Assessment] 2-right 1st metatarsal -Current Size (cm) - Length 0.2 -Current Size (cm) - Width 0.2 -Current Size (cm) - Depth 0.2 -Total Square Cm 0.04 -Photo Taken No -Maximum Distance #2 (cm) 0.1 -Circular Undermining Yes -Exudate Amt None Present -Wound Margin Thickened -Granulation Amt Small (1-33%) -Granulation Quality Pale -Necrosis Amt None Present (0 %) -Structure Exposed N/A -Texture (Shannan-wound Skin Appearance) Callus -Moisture (Shannan-wound Skin Appearance Dry/Scaly ) -Color (Shannan-wound Skin Appearance) No Abnormality -Temperature (Shannan-wound Skin No Abnormality Appearance) (Pt Warm) -Tenderness on Palpation (Shannan-wound No Skin Appearance) -Ulcer Cleansing Rinsed/ Irrigated with Saline -Foul Odor after Cleansing No -Anesthetic Used 5% Lidocaine Gel [Edema Assessment] -Right Calf (cm) 39 -Point of Measurement (cm from the 21.4 medial instep) WC - Nurse 2 - General Ulcer CM Notes Start: 06/21/19 08:50 Freq: Status: Active Protocol: Activity Type Activity Date Activity User E-Sign Co-Sign Detail Recorded Client Recorded Date Recorded By Document 06/28/19 09:17 DV [id number] 06/28/19 09:18 DV 06/28/19 09:17 Wound Center Nurse 2 [Procedure/Treatment] 2-right 1st metatarsal -Time 09:18 -Correct Patient Yes -Correct Side, Site, Position Yes -Correct Procedure Yes -Procedure Performed Yes -Type of Procedure Debridement -Clinical Debridement Subcutaneous -Post Debridement Size (cm) - Length 0.4 -Post Debridement Size (cm) - Width 0.3 -Post Debridement Size (cm) - Depth 0.2 -Total Square Cm 0.12 -Wound/Ulcer Outcome Not Healed -Ulcer Cleansing Rinsed/ Irrigated with Saline -Foul Odor after Cleansing No -Bioengineered Tissue No -Bleeding Controlled with Pressure -Offloading No -Type of Offloading Wedge Shoe -Treatment Response Procedure Tolerated Well [See Physician Procedure note for Specifics] Pain Scale: 0-10 Numeric [Pain] -Is Patient Pain Free? Yes Musculoskeletal: No Tenderness to Palpation of Joints or Extremities, - - Dorsally contracted digits bilateral with prominent metatarsal heads Neurological: - - Epicritic sensation diminished to bilateral lower extremities consistent with patient's diabetic neuropathy status Psych/Mental Status: Normal Affect, Appropriate Debridement Note Post-Debridement Measurements/Treatment WC - Nurse 2 - General Ulcer CM Notes Start: 06/21/19 08:50 Freq: Status: Active Protocol: Activity Type Activity Date Activity User E-Sign Co-Sign Detail Recorded Client Recorded Date Recorded By Document 06/21/19 08:59 DV [id number] 06/21/19 09:01 DV Document 06/28/19 09:17 DV [id number] 06/28/19 09:18 DV 06/21/19 06/28/19 08:59 09:17 Wound Center Nurse 2 2-right 1st metatarsal -Time 09:00 09:18 -Correct Patient Yes Yes -Correct Side, Site, Position Yes Yes -Correct Procedure Yes Yes -Procedure Performed Yes Yes -Type of Procedure Debridement Debridement -Clinical Debridement Subcutaneous Subcutaneous -Post Debridement Size (cm) - Length 0.5 0.4 -Post Debridement Size (cm) - Width 0.4 0.3 -Post Debridement Size (cm) - Depth 0.3 0.2 -Total Square Cm 0.20 0.12 -Wound/Ulcer Outcome Not Healed Not Healed -Ulcer Cleansing Rinsed/ Rinsed/ Irrigated with Irrigated with Saline Saline -Foul Odor after Cleansing No No -Bioengineered Tissue No No -Bleeding Controlled with Pressure Pressure -Offloading No No -Type of Offloading Wedge Shoe Wedge Shoe -Treatment Response Procedure Procedure Tolerated Well Tolerated Well Pain Scale: 0-10 Numeric Is Patient Pain Free? Yes Yes Wound debrided: Right sub-first MPJ Laterality: Right Type of Debridement: Excisional debridement Anesthesia Used: 4% Lidocaine Solution Depth: in the subcutaneous layer Percentage of wound debrided: 100 Instrument Used: 3mm curette Tissue Removed: Devitalized subcutaneous tissue, adherent slough, fibrin, hpk skin Severity: Fat Layer Exposed Amount of bleeding with debridement: Mild Bleeding Controlled with: Pressure Patient tolerated procedure well Assessment/Plan Assessment: As noted above Plan: Patient was carefully examined and evaluated again today in detail. Improvement in all dimensions of ulcer today. Patient had another subcutaneous excisional debridement performed to the aforementioned ulcer site as noted in the clinical panel. The ulcer site was then dressed with Ninoska to the base followed by a dry sterile dressing and Tubigrip for compression. The patient is to change her dressing in this manner on a daily basis. Continued importance of offloading the ulcer site was stressed in great detail again today with half shoe on the right side to completely offload the ulcer site. Patient is to continue with these as well as her knee scooter to keep the area is completely offloaded. Currently there are no clinical signs of local infection. At earlier visit, LEAS and venous Doppler exams were ordered. 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 There is also evidence of incompetence of the veins in the left lower extremity. A note from Dr. Burrell reports that they checked a duplex and she has some right peroneal and posterior tibial occlusive disease. He says that she has good direct line flow through her anterior tibial that appears adequate. He states that if her wound worsens then he would plan an angiogram. He plans to see her back in a couple months for another follow-up. The importance of a high-protein diet was stressed with this patient today in order to help optimize ulcer healing potential. The patient was educated on all signs and symptoms of local and systemic infection she was instructed to go to the emergency room immediately should she notice any of these. All other questions were answered the patient's satisfaction. Patient will follow back up in clinic in 1 week to check on progress, or sooner if needed before then.
[2019-07-05 09:10] VITALS: BP 141/79; PULSE 86; RESP 18; TEMP 36.1; BMI 32.3
--- NOTE | 2019-07-05 09:53 | PN.PCM_ITS ---
(1) Ulcer of right foot with fat layer exposed Status: Chronic Current Visit: No Code(s): L97.512 - Non-pressure chronic ulcer of other part of right foot with fat layer exposed (2) Type 2 diabetes mellitus with diabetic polyneuropathy Status: Chronic Current Visit: No Code(s): E11.42 - Type 2 diabetes mellitus with diabetic polyneuropathy (3) PVD (peripheral vascular disease) Status: Suspected Current Visit: No Code(s): I73.9 - Peripheral vascular disease, unspecified (4) Lower extremity edema Status: Acute Current Visit: No Code(s): R60.0 - Localized edema Type of Wound Date of Service: 07/05/19 Chief Complaint: Right foot ulcer History of Wound: This 63-year-old diabetic female presented to the Wound Clinic with her after being 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 The patient states that she had an issue with her sub-right first metatarsal head ulcer about 4 years ago, and that she had had a previous surgery in the area and that everything eventually healed up. She relates that about 3 weeks prior to Wound Center visit she got a pair of new diabetic shoes and that these new 3 ulcers all appeared. She had been treating them with what she thinks is Silvadene and a dressing over top. She had been trying to keep the areas offloaded with a half shoe to the right foot and an open toed shoe to the left foot so no pressure is applied to the ulcer sites. She is also using a scooter. She and her felt the areas have been slowly improving, but were referred here for further care. Patient denies noticing any purulence to the areas or any extending redness. Currently the patient denies any feelings of nausea, vomiting, fever, chills. Progress of Wound: Ulcer site stable. Patient denies any feelings of nausea, vomiting, fever, chills. - Physical Exam Vital Signs Temp Pulse Resp BP 97 F L 86 18 141/79 H 07/05/19 09:10 07/05/19 09:10 07/05/19 09:10 07/05/19 09:10 General: Alert, Oriented x3, Cooperative, No apparent distress Extremities: Capillary Refill Less than 3 Seconds - To all digits of each foot, No Calf Tenderness - Negative Azra and Valencia signs bilateral, Diminished Peripheral Pulses - DP pulses palpable and PT pulses nonpalpable bilateral, Edema - Bilateral lower extremity edema Skin: Ulcer/ Wound - Ulcer sub-right first metatarsal head with fat layer exposed. Base is a mixture of adherent slough, fibrin, devitalized subcutaneous tissue, majority grannular tissue, and slight surrounding hyperkeratotic tissue. There is no purulence, no malodor, no surrounding or extending cellulitis, no significant increase in warmth, no probing to bone, no tracking, no undermining. Wound Measurements and Assessment WC - Nurse 1 - General Ulcer Measurement Start: 06/21/19 08:50 Freq: Status: Active Protocol: Activity Type Activity Date Activity User E-Sign Co-Sign Detail Recorded Client Recorded Date Recorded By Document 07/05/19 09:10 RB [id number] 07/05/19 09:22 RB 07/05/19 09:10 Wound Center Nurse 1 [Ulcer Assessment] 2-right 1st metatarsal -Combined with other wound No -Current Size (cm) - Length 0.3 -Current Size (cm) - Width 0.4 -Current Size (cm) - Depth 0.2 -Total Square Cm 0.12 -Tunneling No -Undermining/Tunneling No -Circular Undermining No -Exudate Amt Small -Exudate Type Serosanguineous -Wound Margin Flat & Intact -Granulation Amt Medium (34-66%) -Granulation Quality [place] -Slough/Fibrin Yes -Necrosis Amt Small (1-33%) -Necrotic Tissue Type Adherent Slough -Structure Exposed N/A -Texture (Shannan-wound Skin Appearance) Assessed,Callus -Moisture (Shannan-wound Skin Appearance Assessed ) -Color (Shannan-wound Skin Appearance) Assessed -Temperature (Shannan-wound Skin No Abnormality Appearance) (Pt Warm) -Tenderness on Palpation (Shannan-wound No Skin Appearance) -Ulcer Cleansing Wound Cleanser -Foul Odor after Cleansing No -Anesthetic Used 5% Lidocaine Gel [Edema Assessment] -Lower Limb Edema Present Yes -Right Calf (cm) 41.5 -Right Ankle (cm) 24 WC - Nurse 2 - General Ulcer CM Notes Start: 06/21/19 08:50 Freq: Status: Active Protocol: Activity Type Activity Date Activity User E-Sign Co-Sign Detail Recorded Client Recorded Date Recorded By Document 07/05/19 09:32 DV [id number] 07/05/19 09:36 DV 07/05/19 09:32 Wound Center Nurse 2 [Procedure/Treatment] 2-right 1st metatarsal -Time 09:33 -Correct Patient Yes -Correct Side, Site, Position Yes -Correct Procedure Yes -Procedure Performed Yes -Type of Procedure Debridement -Clinical Debridement Subcutaneous -Post Debridement Size (cm) - Length 0.4 -Post Debridement Size (cm) - Width 0.4 -Post Debridement Size (cm) - Depth 0.2 -Total Square Cm 0.16 -Wound/Ulcer Outcome Not Healed -Ulcer Cleansing Rinsed/ Irrigated with Saline -Foul Odor after Cleansing No -Bioengineered Tissue No -Bleeding Controlled with Pressure -Offloading No -Type of Offloading Wedge Shoe -Treatment Response Procedure Tolerated Well [See Physician Procedure note for Specifics] Pain Scale: 0-10 Numeric [Pain] -Is Patient Pain Free? Yes Musculoskeletal: No Tenderness to Palpation of Joints or Extremities, - - Dorsally contracted digits bilateral with prominent metatarsal heads Neurological: - - Epicritic sensation diminished bilateral lower extremities consistent with patient's diabetic neuropathy status Psych/Mental Status: Normal Affect, Appropriate Debridement Note Post-Debridement Measurements/Treatment WC - Nurse 2 - General Ulcer CM Notes Start: 06/21/19 08:50 Freq: Status: Active Protocol: Activity Type Activity Date Activity User E-Sign Co-Sign Detail Recorded Client Recorded Date Recorded By Document 06/21/19 08:59 DV [id number] 06/21/19 09:01 DV Document 06/28/19 09:17 DV [id number] 06/28/19 09:18 DV Document 07/05/19 09:32 DV [id number] 07/05/19 09:36 DV 06/21/19 06/28/19 07/05/19 08:59 09:17 09:32 Wound Center Nurse 2 2-right 1st metatarsal -Time 09:00 09:18 09:33 -Correct Patient Yes Yes Yes -Correct Side, Site, Position Yes Yes Yes -Correct Procedure Yes Yes Yes -Procedure Performed Yes Yes Yes -Type of Procedure Debridement Debridement Debridement -Clinical Debridement Subcutaneous Subcutaneous Subcutaneous -Post Debridement Size (cm) - Length 0.5 0.4 0.4 -Post Debridement Size (cm) - Width 0.4 0.3 0.4 -Post Debridement Size (cm) - Depth 0.3 0.2 0.2 -Total Square Cm 0.20 0.12 0.16 -Wound/Ulcer Outcome Not Healed Not Healed Not Healed -Ulcer Cleansing Rinsed/ Rinsed/ Rinsed/ Irrigated with Irrigated with Irrigated with Saline Saline Saline -Foul Odor after Cleansing No No No -Bioengineered Tissue No No No -Bleeding Controlled with Pressure Pressure Pressure -Offloading No No No -Type of Offloading Wedge Shoe Wedge Shoe Wedge Shoe -Treatment Response Procedure Procedure Procedure Tolerated Well Tolerated Well Tolerated Well Pain Scale: 0-10 Numeric Is Patient Pain Free? Yes Yes Yes Wound debrided: Right sub-first MPJ Laterality: Right Type of Debridement: Excisional debridement Anesthesia Used: 4% Lidocaine Solution Depth: in the subcutaneous layer Percentage of wound debrided: 100 Instrument Used: 3mm curette Tissue Removed: Devitalized subcutaneous tissue, adherent slough, fibrin, hpk skin Severity: Fat Layer Exposed Amount of bleeding with debridement: Mild Bleeding Controlled with: Pressure Patient tolerated procedure well Assessment/Plan Assessment: As noted above Plan: Patient was carefully examined and evaluated again today in detail. Ulcer site stable today. Patient had another subcutaneous excisional debridement performed to the aforementioned ulcer site as noted in the clinical panel. The ulcer site was then dressed with Ninoska to the base followed by a dry sterile dressing and Tubigrip for compression. The patient is to change her dressing in this manner on a daily basis. Continued importance of offloading the ulcer site was stressed in great detail again today with half shoe on the right side to completely offload the ulcer site. Patient is to continue with these as well as her knee scooter to keep the area is completely offloaded. Currently there are no clinical signs of local infection. At earlier visit, LEAS and venous Doppler exams were ordered. 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 There is also evidence of incompetence of the veins in the left lower extremity. A note from Dr. Burrell reports that they checked a duplex and she has some right peroneal and posterior tibial occlusive disease. He says that she has good direct line flow through her anterior tibial that appears adequate. He states that if her wound worsens then he would plan an angiogram. He plans to see her back in a couple months for another follow-up. The importance of a high-protein diet was stressed with this patient today in order to help optimize ulcer healing potential. The patient was educated on all signs and symptoms of local and systemic infection she was instructed to go to the emergency room immediately should she notice any of these. All other questions were answered the patient's satisfaction. Patient will follow back up in clinic in 1 week to check on progress, or sooner if needed before then.
[2019-07-19 09:04] VITALS: BP 132/66; PULSE 74; RESP 18; TEMP 36.4; BMI 32.3
--- NOTE | 2019-07-19 12:47 | PN.PCM_ITS ---
(1) Ulcer of right foot with fat layer exposed Status: Chronic Current Visit: No Code(s): L97.512 - Non-pressure chronic ulcer of other part of right foot with fat layer exposed (2) Type 2 diabetes mellitus with diabetic polyneuropathy Status: Chronic Current Visit: No Code(s): E11.42 - Type 2 diabetes mellitus with diabetic polyneuropathy (3) PVD (peripheral vascular disease) Status: Suspected Current Visit: No Code(s): I73.9 - Peripheral vascular disease, unspecified (4) Lower extremity edema Status: Acute Current Visit: No Code(s): R60.0 - Localized edema Type of Wound Date of Service: 07/19/19 Chief Complaint: Right foot ulcer History of Wound: This 63-year-old diabetic female presented to the [facility] with her after being referred by her retail client manager for ulcers sub-right first metatarsal head, right dorsal fourth toe, and distal left hallux. The patient states that she had an issue with her sub-right first metatarsal head ulcer about 4 years ago, and that she had had a previous surgery in the area and that everything eventually healed up. She relates that about 3 weeks prior to Wound Center visit she got a pair of new diabetic shoes and that these new 3 ulcers all appeared. She had been treating them with what she thinks is Silvadene and a dressing over top. She had been trying to keep the areas offloaded with a half shoe to the right foot and an open toed shoe to the left foot so no pressure is applied to the ulcer sites. She is also using a scooter. She and her felt the areas have been slowly improving, but were referred here for further care. Patient denies noticing any purulence to the areas or any extending redness. Currently the patient denies any feelings of nausea, vomiting, fever, chills. Progress of Wound: Ulcer very slightly larger today. Patient denies any feelings of nausea, vomiting, fever, chills. - Physical Exam Vital Signs Temp Pulse Resp BP 97.6 F L 74 18 132/66 H 07/19/19 09:04 07/19/19 09:04 07/19/19 09:04 07/19/19 09:04 General: Alert, Oriented x3, Cooperative, No apparent distress Extremities: Capillary Refill Less than 3 Seconds - To all digits of each foot, No Calf Tenderness - Negative Azra and Valencia signs bilateral, Diminished Peripheral Pulses - DP pulses palpable and PT pulses nonpalpable bilateral, Edema - Bilateral lower extremity edema Skin: Ulcer/ Wound - Ulcer sub-right first metatarsal head with fat layer exposed. Base is a mixture of adherent slough, fibrin, devitalized subcutaneous tissue, majority grannular tissue, and slight surrounding hyperkeratotic tissue. There is no purulence, no malodor, no surrounding or extending cellulitis, no significant increase in warmth, no probing to bone, no tracking, no undermining. Wound Measurements and Assessment WC - Nurse 1 - General Ulcer Measurement Start: 06/21/19 08:50 Freq: Status: Active Protocol: Activity Type Activity Date Activity User E-Sign Co-Sign Detail Recorded Client Recorded Date Recorded By Document 07/19/19 09:04 DL [id number] 07/19/19 09:11 DL 07/19/19 09:04 Wound Center Nurse 1 [Ulcer Assessment] 2-right 1st metatarsal -Current Size (cm) - Length 0.5 -Current Size (cm) - Width 0.4 -Current Size (cm) - Depth 0.2 -Total Square Cm 0.20 -Photo Taken No -Exudate Amt None Present -Wound Margin Distinct, Outline Attached -Granulation Amt Small (1-33%) -Granulation Quality [place] -Necrosis Amt None Present (0 %) -Structure Exposed N/A -Texture (Shannan-wound Skin Appearance) Callus -Moisture (Shannan-wound Skin Appearance Dry/Scaly ) -Color (Shannan-wound Skin Appearance) No Abnormality -Temperature (Shannan-wound Skin No Abnormality Appearance) (Pt Warm) -Tenderness on Palpation (Shannan-wound No Skin Appearance) -Ulcer Cleansing Wound Cleanser -Foul Odor after Cleansing No -Anesthetic Used 4% Lidocaine Solution [Edema Assessment] -Right Calf (cm) 40 -Right Ankle (cm) 22.5 WC - Nurse 2 - General Ulcer CM Notes Start: 06/21/19 08:50 Freq: Status: Active Protocol: Activity Type Activity Date Activity User E-Sign Co-Sign Detail Recorded Client Recorded Date Recorded By Document 07/19/19 09:41 DV [id number] 07/19/19 09:45 DV 07/19/19 09:41 Wound Center Nurse 2 [Procedure/Treatment] 2-right 1st metatarsal -Time 09:42 -Correct Patient Yes -Correct Side, Site, Position Yes -Correct Procedure Yes -Procedure Performed Yes -Type of Procedure Debridement -Clinical Debridement Subcutaneous -Post Debridement Size (cm) - Length 0.6 -Post Debridement Size (cm) - Width 0.6 -Post Debridement Size (cm) - Depth 0.3 -Total Square Cm 0.36 -Wound/Ulcer Outcome Not Healed -Ulcer Cleansing Rinsed/ Irrigated with Saline -Foul Odor after Cleansing Yes -Bioengineered Tissue No -Bleeding Controlled with Pressure -Offloading Yes -Type of Offloading Surgical Shoe -Treatment Response Procedure Tolerated Well [See Physician Procedure note for Specifics] Pain Scale: 0-10 Numeric [Pain] -Is Patient Pain Free? Yes Musculoskeletal: No Tenderness to Palpation of Joints or Extremities, - - Dorsally contracted digits bilateral prominent metatarsal heads Neurological: - - Epicritic sensation diminished bilateral lower extremities consistent with patient's diabetic neuropathy status Psych/Mental Status: Normal Affect, Appropriate Debridement Note Post-Debridement Measurements/Treatment WC - Nurse 2 - General Ulcer CM Notes Start: 06/21/19 08:50 Freq: Status: Active Protocol: Activity Type Activity Date Activity User E-Sign Co-Sign Detail Recorded Client Recorded Date Recorded By Document 06/21/19 08:59 DV [id number] 06/21/19 09:01 DV Document 06/28/19 09:17 DV [id number] 06/28/19 09:18 DV Document 07/05/19 09:32 DV [id number] 07/05/19 09:36 DV Document 07/19/19 09:41 DV [id number] 07/19/19 09:45 DV 06/21/19 06/28/19 07/05/19 08:59 09:17 09:32 Wound Center Nurse 2 2-right 1st metatarsal -Time 09:00 09:18 09:33 -Correct Patient Yes Yes Yes -Correct Side, Site, Position Yes Yes Yes -Correct Procedure Yes Yes Yes -Procedure Performed Yes Yes Yes -Type of Procedure Debridement Debridement Debridement -Clinical Debridement Subcutaneous Subcutaneous Subcutaneous -Post Debridement Size (cm) - Length 0.5 0.4 0.4 -Post Debridement Size (cm) - Width 0.4 0.3 0.4 -Post Debridement Size (cm) - Depth 0.3 0.2 0.2 -Total Square Cm 0.20 0.12 0.16 -Wound/Ulcer Outcome Not Healed Not Healed Not Healed -Ulcer Cleansing Rinsed/ Rinsed/ Rinsed/ Irrigated with Irrigated with Irrigated with Saline Saline Saline -Foul Odor after Cleansing No No No -Bioengineered Tissue No No No -Bleeding Controlled with Pressure Pressure Pressure -Offloading No No No -Type of Offloading Wedge Shoe Wedge Shoe Wedge Shoe -Treatment Response Procedure Procedure Procedure Tolerated Well Tolerated Well Tolerated Well Pain Scale: 0-10 Numeric Is Patient Pain Free? Yes Yes Yes 07/19/19 09:41 Wound Center Nurse 2 2-right 1st metatarsal -Time 09:42 -Correct Patient Yes -Correct Side, Site, Position Yes -Correct Procedure Yes -Procedure Performed Yes -Type of Procedure Debridement -Clinical Debridement Subcutaneous -Post Debridement Size (cm) - Length 0.6 -Post Debridement Size (cm) - Width 0.6 -Post Debridement Size (cm) - Depth 0.3 -Total Square Cm 0.36 -Wound/Ulcer Outcome Not Healed -Ulcer Cleansing Rinsed/ Irrigated with Saline -Foul Odor after Cleansing Yes -Bioengineered Tissue No -Bleeding Controlled with Pressure -Offloading Yes -Type of Offloading Surgical Shoe -Treatment Response Procedure Tolerated Well Pain Scale: 0-10 Numeric Is Patient Pain Free? Yes Wound debrided: Right sub-first MPJ Laterality: Right Type of Debridement: Excisional debridement Anesthesia Used: 4% Lidocaine Solution Depth: in the subcutaneous layer Percentage of wound debrided: 100 Instrument Used: 3mm curette Tissue Removed: Devitalized subcutaneous tissue, adherent slough, fibrin, hpk skin Severity: Fat Layer Exposed Amount of bleeding with debridement: Mild Bleeding Controlled with: Pressure Patient tolerated procedure well Assessment/Plan Assessment: As noted above Plan: Patient was carefully examined and evaluated again today in detail after not being seen last week. Ulcer site stable today with very slight increase in size. Patient had another subcutaneous excisional debridement performed to the aforementioned ulcer site as noted in the clinical panel. The ulcer site was then dressed with Ninoska to the base followed by a dry sterile dressing and Tubigrip for compression. The patient is to change her dressing in this manner on a daily basis. Continued importance of offloading the ulcer site was stressed in great detail again today with half shoe on the right side to completely offload the ulcer site. Patient brought in a new offloading surgical shoe for the right foot today. It appears as though this will completely offload the patient's ulcer site and she was informed that she could slowly transition into wearing this. She was instructed to evaluate her foot multiple times daily to evaluate for any pressure around or over the ulcer site and if she notices any she is to stop wearing this shoe and get back into the half shoe. She reports that she understands this. Patient is to continue with these as well as her knee scooter to keep the area is completely offloaded. Currently there are no clinical signs of local infection. At earlier visit, LEAS and venous Doppler exams were ordered. 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 There is also evidence of incompetence of the veins in the left lower extremity. A note from Dr. Burrell reports that they checked a duplex and she has some right peroneal and posterior tibial occlusive disease. He says that she has good direct line flow through her anterior tibial that appears adequate. He states that if her wound worsens then he would plan an angiogram. He plans to see her back in a couple months for another follow-up. The importance of a high-protein diet was stressed with this patient today in order to help optimize ulcer healing potential. The patient was educated on all signs and symptoms of local and systemic infection she was instructed to go to the emergency room immediately should she notice any of these. All other questions were answered the patient's satisfaction. Patient will follow back up in clinic in 1 week to check on progress, or sooner if needed before then.
== END 2019-07-20 23:59 ==
LOC: WC 09:00
PROVIDERS: Family Provider Family Medicine; PCP Family Medicine; Referring Provider Podiatrist; Visit Provider Podiatrist
DX: E11.621 Type 2 diabetes mellitus with foot ulcer (principal); E11.42 Type 2 diabetes mellitus with diabetic polyneuropathy; R60.0 Localized edema; L97.512 Non-pressure chronic ulcer of other part of right foot with fat layer exposed
CPT/HCPCS: 11042

== ENCOUNTER 2019-08-16 08:30 | Outpatient (RCR) | payer SELFPAY ==
[2019-07-21 00:39] VITALS: BP 132/66; PULSE 74; RESP 18; TEMP 36.4
[2019-07-26 09:16] VITALS: BP 141/71; PULSE 73; RESP 18; TEMP 36.1; BMI 32.3
--- NOTE | 2019-07-26 10:15 | PCM.WC.PN ---
(1) Ulcer of right foot with fat layer exposed Status: Chronic Current Visit: No Code(s): L97.512 - Non-pressure chronic ulcer of other part of right foot with fat layer exposed (2) Type 2 diabetes mellitus with diabetic polyneuropathy Status: Chronic Current Visit: No Code(s): E11.42 - Type 2 diabetes mellitus with diabetic polyneuropathy (3) PVD (peripheral vascular disease) Status: Suspected Current Visit: No Code(s): I73.9 - Peripheral vascular disease, unspecified (4) Lower extremity edema Status: Acute Current Visit: No Code(s): R60.0 - Localized edema Type of Wound Date of Service: 07/26/19 Chief Complaint: Right foot ulcer History of Wound: This 63-year-old diabetic female presented to the Wound Clinic with her after being referred by her law office assistant for ulcers sub-right first metatarsal head, right dorsal fourth toe, and distal left hallux. The patient states that she had an issue with her sub-right first metatarsal head ulcer about 4 years ago, and that she had had a previous surgery in the area and that everything eventually healed up. She relates that about 3 weeks prior to Wound Center visit she got a pair of new diabetic shoes and that these new 3 ulcers all appeared. She had been treating them with what she thinks is Silvadene and a dressing over top. She had been trying to keep the areas offloaded with a half shoe to the right foot and an open toed shoe to the left foot so no pressure is applied to the ulcer sites. She is also using a scooter. She and her felt the areas have been slowly improving, but were referred here for further care. Patient denies noticing any purulence to the areas or any extending redness. Currently the patient denies any feelings of nausea, vomiting, fever, chills. Progress of Wound: Ulcer shows very minor improvement. Patient denies any feelings of nausea, vomiting, fever, chills. - Physical Exam Vital Signs Temp Pulse Resp BP 97 F L 73 18 141/71 H 07/26/19 09:16 07/26/19 09:16 07/26/19 09:16 07/26/19 09:16 General: Alert, Oriented x3, Cooperative, No apparent distress Extremities: Capillary Refill Less than 3 Seconds - To all digits of each foot, No Calf Tenderness - Negative Azra and Valencia signs bilateral, Diminished Peripheral Pulses - DP pulses palpable and PT pulses nonpalpable bilateral, Edema - Bilateral lower extremity edema Skin: Ulcer/ Wound - Ulcer sub-right first metatarsal head with fat layer exposed. Base is a mixture of adherent slough, fibrin, devitalized subcutaneous tissue, grannular tissue, and slight surrounding hyperkeratotic tissue. There is no purulence, no malodor, no surrounding or extending cellulitis, no significant increase in warmth, no probing to bone, no tracking, no undermining. Wound Measurements and Assessment WC - Nurse 1 - General Ulcer Measurement Start: 07/26/19 09:16 Freq: Status: Active Protocol: Activity Type Activity Date Activity User E-Sign Co-Sign Detail Recorded Client Recorded Date Recorded By Document 07/26/19 09:16 RB [id number] 07/26/19 09:18 RB 07/26/19 09:16 Wound Center Nurse 1 [Ulcer Assessment] 2-right 1st metatarsal -Combined with other wound No -Current Size (cm) - Length 0.6 -Current Size (cm) - Width 0.6 -Current Size (cm) - Depth 0.4 -Total Square Cm 0.36 -Tunneling No -Undermining/Tunneling No -Circular Undermining No -Exudate Amt Small -Exudate Type Serosanguineous -Wound Margin Thickened & Rolled Under -Granulation Amt Medium (34-66%) -Granulation Quality [place] -Slough/Fibrin Yes -Necrosis Amt Small (1-33%) -Necrotic Tissue Type Adherent Slough -Structure Exposed N/A -Texture (Shannan-wound Skin Appearance) Assessed,Callus -Moisture (Shannan-wound Skin Appearance Assessed ) -Color (Shannan-wound Skin Appearance) Assessed -Temperature (Shannan-wound Skin No Abnormality Appearance) (Pt Warm) -Tenderness on Palpation (Shannan-wound No Skin Appearance) -Ulcer Cleansing Wound Cleanser -Foul Odor after Cleansing No -Anesthetic Used 5% Lidocaine Gel [Edema Assessment] -Lower Limb Edema Present Yes -Right Calf (cm) 40.5 -Right Ankle (cm) 24.5 WC - Nurse 2 - General Ulcer CM Notes Start: 07/26/19 09:16 Freq: Status: Active Protocol: Activity Type Activity Date Activity User E-Sign Co-Sign Detail Recorded Client Recorded Date Recorded By Document 07/26/19 09:29 DV [id number] 07/26/19 09:32 DV 07/26/19 09:29 Wound Center Nurse 2 [Procedure/Treatment] 2-right 1st metatarsal -Time 09:30 -Correct Patient Yes -Correct Side, Site, Position Yes -Correct Procedure Yes -Procedure Performed Yes -Type of Procedure Debridement -Clinical Debridement Subcutaneous -Post Debridement Size (cm) - Length 0.6 -Post Debridement Size (cm) - Width 0.5 -Post Debridement Size (cm) - Depth 0.3 -Total Square Cm 0.30 -Wound/Ulcer Outcome Not Healed -Ulcer Cleansing Rinsed/ Irrigated with Saline -Foul Odor after Cleansing No -Bioengineered Tissue No -Bleeding Controlled with Pressure -Offloading No -Type of Offloading Wedge Shoe -Treatment Response Procedure Tolerated Well [See Physician Procedure note for Specifics] Pain Scale: 0-10 Numeric [Pain] -Is Patient Pain Free? Yes Musculoskeletal: No Tenderness to Palpation of Joints or Extremities, - - Dorsally contracted digits bilateral prominent metatarsal heads Neurological: - - Epicritic sensation diminished bilateral lower extremities consistent with patient's diabetic neuropathy status Psych/Mental Status: Normal Affect, Appropriate Debridement Note Post-Debridement Measurements/Treatment WC - Nurse 2 - General Ulcer CM Notes Start: 07/26/19 09:16 Freq: Status: Active Protocol: Activity Type Activity Date Activity User E-Sign Co-Sign Detail Recorded Client Recorded Date Recorded By Document 07/26/19 09:29 DV [id number] 07/26/19 09:32 DV 07/26/19 09:29 Wound Center Nurse 2 2-right 1st metatarsal -Time 09:30 -Correct Patient Yes -Correct Side, Site, Position Yes -Correct Procedure Yes -Procedure Performed Yes -Type of Procedure Debridement -Clinical Debridement Subcutaneous -Post Debridement Size (cm) - Length 0.6 -Post Debridement Size (cm) - Width 0.5 -Post Debridement Size (cm) - Depth 0.3 -Total Square Cm 0.30 -Wound/Ulcer Outcome Not Healed -Ulcer Cleansing Rinsed/ Irrigated with Saline -Foul Odor after Cleansing No -Bioengineered Tissue No -Bleeding Controlled with Pressure -Offloading No -Type of Offloading Wedge Shoe -Treatment Response Procedure Tolerated Well Pain Scale: 0-10 Numeric Is Patient Pain Free? Yes Wound debrided: Right sub-first MPJ Laterality: Right Type of Debridement: Excisional debridement Anesthesia Used: 4% Lidocaine Solution Depth: in the subcutaneous layer Percentage of wound debrided: 100 Instrument Used: 3mm curette Tissue Removed: Devitalized subcutaneous tissue, adherent slough, fibrin, hpk skin Severity: Fat Layer Exposed Amount of bleeding with debridement: Mild Bleeding Controlled with: Pressure Patient tolerated procedure well Assessment/Plan Assessment: As noted above Plan: Patient was carefully examined and evaluated again today in detail after not being seen last week. Minor improvement noted. Patient had another subcutaneous excisional debridement performed to the aforementioned ulcer site as noted in the clinical panel. The ulcer site was then dressed with Ninoska to the base followed by a dry sterile dressing and Tubigrip for compression. The patient is to change her dressing in this manner on a daily basis. Continued importance of offloading the ulcer site was stressed in great detail again today with half shoe on the right side to completely offload the ulcer site. Patient is to continue with these as well as her knee scooter to keep the area is completely offloaded. Currently there are no clinical signs of local infection. We discussed possible application of a TCC?EZ cast. She says she may be interested in pursuing this at her visit next week. At earlier visit, LEAS and venous Doppler exams were ordered. 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 There is also evidence of incompetence of the veins in the left lower extremity. A note from Dr. Burrell reports that they checked a duplex and she has some right peroneal and posterior tibial occlusive disease. He says that she has good direct line flow through her anterior tibial that appears adequate. He states that if her wound worsens then he would plan an angiogram. He plans to see her back in a couple months for another follow-up. The importance of a high-protein diet was stressed with this patient today in order to help optimize ulcer healing potential. The patient was educated on all signs and symptoms of local and systemic infection she was instructed to go to the emergency room immediately should she notice any of these. All other questions were answered the patient's satisfaction. Patient will follow back up in clinic in 1 week to check on progress, or sooner if needed before then.
[2019-08-09 08:10] VITALS: BP 135/69; PULSE 76; RESP 18; TEMP 36; BMI 32.3
--- NOTE | 2019-08-09 09:55 | PN.PCM_ITS ---
(1) Ulcer of right foot with fat layer exposed Status: Chronic Current Visit: No Code(s): L97.512 - Non-pressure chronic ulcer of other part of right foot with fat layer exposed (2) Type 2 diabetes mellitus with diabetic polyneuropathy Status: Chronic Current Visit: No Code(s): E11.42 - Type 2 diabetes mellitus with diabetic polyneuropathy (3) PVD (peripheral vascular disease) Status: Suspected Current Visit: No Code(s): I73.9 - Peripheral vascular disease, unspecified (4) Lower extremity edema Status: Acute Current Visit: No Code(s): R60.0 - Localized edema Type of Wound Date of Service: 08/09/19 Chief Complaint: Right foot ulcer History of Wound: This 63-year-old diabetic female presented to the [facility] with her after being referred by her supervisor telephone answering service for ulcers sub-right first metatarsal head, right dorsal fourth toe, and distal left hallux. The patient states that she had an issue with her sub-right first metatarsal head ulcer about 4 years ago, and that she had had a previous surgery in the area and that everything eventually healed up. She relates that about 3 weeks prior to Wound Center visit she got a pair of new diabetic shoes and that these new 3 ulcers all appeared. She had been treating them with what she thinks is Silvadene and a dressing over top. She had been trying to keep the areas offloaded with a half shoe to the right foot and an open toed shoe to the left foot so no pressure is applied to the ulcer sites. She is also using a scooter. She and her felt the areas have been slowly improving, but were referred here for further care. Patient denies noticing any purulence to the areas or any extending redness. Currently the patient denies any feelings of nausea, vomiting, fever, chills. Progress of Wound: Ulcer shows some improvement this week after missing her appointment last week. Patient denies any feelings of nausea, vomiting, fever, chills. - Physical Exam Vital Signs Temp Pulse Resp BP 96.8 F L 76 18 135/69 H 08/09/19 08:10 08/09/19 08:10 08/09/19 08:10 08/09/19 08:10 General: Alert, Oriented x3, Cooperative, No apparent distress Extremities: Capillary Refill Less than 3 Seconds - To all digits of each foot, No Calf Tenderness - Negative Azra and Valencia signs bilateral, Diminished Peripheral Pulses - DP pulses palpable and PT pulses nonpalpable bilateral, Edema - Slight lower extremity edema Skin: Ulcer/ Wound - Ulcer sub-right first metatarsal head with fat layer exposed. Ulcer site shows improvement. Base is a mixture of adherent slough, fibrin, devitalized subcutaneous tissue, grannular tissue, and slight surrounding hyperkeratotic tissue. There is no purulence, no malodor, no surrounding or extending cellulitis, no significant increase in warmth, no probing to bone, no tracking, no undermining. Wound Measurements and Assessment WC - Nurse 1 - General Ulcer Measurement Start: 07/26/19 09:16 Freq: Status: Active Protocol: Activity Type Activity Date Activity User E-Sign Co-Sign Detail Recorded Client Recorded Date Recorded By Document 08/09/19 08:10 DL [id number] 08/09/19 08:13 DL 08/09/19 08:10 Wound Center Nurse 1 [Ulcer Assessment] 2-right 1st metatarsal -Current Size (cm) - Length 0.2 -Current Size (cm) - Width 0.2 -Current Size (cm) - Depth 0.2 -Total Square Cm 0.04 -Photo Taken No -Maximum Distance #2 (cm) 0.1 -Circular Undermining Yes -Exudate Amt None Present -Wound Margin Thickened -Granulation Amt Small (1-33%) -Granulation Quality [place] -Necrosis Amt Small (1-33%) -Necrotic Tissue Type Adherent Slough -Structure Exposed N/A -Texture (Shannan-wound Skin Appearance) Callus -Moisture (Shannan-wound Skin Appearance No Abnormality ) -Color (Shannan-wound Skin Appearance) No Abnormality -Temperature (Shannan-wound Skin No Abnormality Appearance) (Pt Warm) -Tenderness on Palpation (Shannan-wound No Skin Appearance) -Ulcer Cleansing Rinsed/ Irrigated with Saline -Foul Odor after Cleansing No -Anesthetic Used 5% Lidocaine Gel [Edema Assessment] -Right Calf (cm) 38 -Right Ankle (cm) 21.2 WC - Nurse 2 - General Ulcer CM Notes Start: 07/26/19 09:16 Freq: Status: Active Protocol: Activity Type Activity Date Activity User E-Sign Co-Sign Detail Recorded Client Recorded Date Recorded By Document 08/09/19 08:34 DV [id number] 08/09/19 08:40 DV 08/09/19 08:34 Wound Center Nurse 2 [Procedure/Treatment] 2-right 1st metatarsal -Time 08:35 -Correct Patient Yes -Correct Side, Site, Position Yes -Correct Procedure Yes -Procedure Performed Yes -Type of Procedure Debridement -Clinical Debridement Subcutaneous -Post Debridement Size (cm) - Length 0.4 -Post Debridement Size (cm) - Width 0.3 -Post Debridement Size (cm) - Depth 0.2 -Total Square Cm 0.12 -Wound/Ulcer Outcome Not Healed -Ulcer Cleansing Rinsed/ Irrigated with Saline -Foul Odor after Cleansing No -Bioengineered Tissue No -Bleeding Controlled with Pressure -Offloading No -Treatment Response Procedure Tolerated Well [See Physician Procedure note for Specifics] Pain Scale: 0-10 Numeric [Pain] -Is Patient Pain Free? Yes Musculoskeletal: No Tenderness to Palpation of Joints or Extremities, - - Dorsally contracted digits bilateral. Prominent plantar metatarsal heads Neurological: - - Epicritic sensation diminished bilateral lower extremities consistent with patient's diabetic neuropathy status Psych/Mental Status: Normal Affect, Appropriate Debridement Note Post-Debridement Measurements/Treatment WC - Nurse 2 - General Ulcer CM Notes Start: 07/26/19 09:16 Freq: Status: Active Protocol: Activity Type Activity Date Activity User E-Sign Co-Sign Detail Recorded Client Recorded Date Recorded By Document 07/26/19 09:29 DV [id number] 07/26/19 09:32 DV Document 08/09/19 08:34 DV [id number] 08/09/19 08:40 DV 07/26/19 08/09/19 09:29 08:34 Wound Center Nurse 2 2-right 1st metatarsal -Time 09:30 08:35 -Correct Patient Yes Yes -Correct Side, Site, Position Yes Yes -Correct Procedure Yes Yes -Procedure Performed Yes Yes -Type of Procedure Debridement Debridement -Clinical Debridement Subcutaneous Subcutaneous -Post Debridement Size (cm) - Length 0.6 0.4 -Post Debridement Size (cm) - Width 0.5 0.3 -Post Debridement Size (cm) - Depth 0.3 0.2 -Total Square Cm 0.30 0.12 -Wound/Ulcer Outcome Not Healed Not Healed -Ulcer Cleansing Rinsed/ Rinsed/ Irrigated with Irrigated with Saline Saline -Foul Odor after Cleansing No No -Bioengineered Tissue No No -Bleeding Controlled with Pressure Pressure -Offloading No No -Type of Offloading Wedge Shoe -Treatment Response Procedure Procedure Tolerated Well Tolerated Well Pain Scale: 0-10 Numeric Is Patient Pain Free? Yes Yes Wound debrided: Right sub-first MPJ Laterality: Right Type of Debridement: Excisional debridement Anesthesia Used: 4% Lidocaine Solution Depth: in the subcutaneous layer Percentage of wound debrided: 100 Instrument Used: #15 blade Tissue Removed: Devitalized subcutaneous tissue, adherent slough, fibrin, hpk skin Severity: Fat Layer Exposed Amount of bleeding with debridement: Mild Bleeding Controlled with: Pressure Patient tolerated procedure well Assessment/Plan Assessment: As noted above Plan: Patient was carefully examined and evaluated again today in detail after not being seen last week again. Another small improvement noted. Patient had another subcutaneous excisional debridement performed to the aforementioned u lcer site as noted in the clinical panel. The ulcer site was then dressed with Ninoska to the base followed by a dry sterile dressing and Tubigrip for compression. The patient is to change her dressing in this manner on a daily basis. Continued importance of offloading the ulcer site was stressed in great detail again today with half shoe on the right side to completely offload the ulcer site. Patient is to continue with these as well as her knee scooter to keep the area is completely offloaded. Currently there are no clinical signs of local infection. We discussed possible application of a TCC?EZ cast at last visit, but she says after thinking about it she is not ready to pursue this option yet at this time. At earlier visit, LEAS and venous Doppler exams were ordered. 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 There is also evidence of incompetence of the veins in the left lower extremity. A note from Dr. Burrell reports that they checked a duplex and she has some right peroneal and posterior tibial occlusive disease. He says that she has good direct line flow through her anterior tibial that appears adequate. He states that if her wound worsens then he would plan an angiogram. He plans to see her back in a couple months for another follow-up. The importance of a high-protein diet was stressed with this patient today in order to help optimize ulcer healing potential. The patient was educated on all signs and symptoms of local and systemic infection she was instructed to go to the emergency room immediately should she notice any of these. All other questions were answered the patient's satisfaction. Patient will follow back up in clinic in 1 week to check on progress, or sooner if needed before then.
[2019-08-16 08:30] VITALS: BP 125/62; PULSE 74; RESP 18; TEMP 35.9; BMI 32.3
--- NOTE | 2019-08-16 08:51 | PCM.WC.PN ---
(1) Ulcer of right foot with fat layer exposed Status: Chronic Current Visit: No Code(s): L97.512 - Non-pressure chronic ulcer of other part of right foot with fat layer exposed (2) Type 2 diabetes mellitus with diabetic polyneuropathy Status: Chronic Current Visit: No Code(s): E11.42 - Type 2 diabetes mellitus with diabetic polyneuropathy (3) PVD (peripheral vascular disease) Status: Suspected Current Visit: No Code(s): I73.9 - Peripheral vascular disease, unspecified (4) Lower extremity edema Status: Acute Current Visit: No Code(s): R60.0 - Localized edema Type of Wound Date of Service: 08/16/19 Chief Complaint: Right foot ulcer History of Wound: This 63-year-old diabetic female presented to the Wound Clinic with her after being referred by her locomotive firer/fireman for ulcers sub-right first metatarsal head, right dorsal fourth toe, and distal left hallux. The patient states that she had an issue with her sub-right first metatarsal head ulcer about 4 years ago, and that she had had a previous surgery in the area and that everything eventually healed up. She relates that about 3 weeks prior to Wound Center visit she got a pair of new diabetic shoes and that these new 3 ulcers all appeared. She had been treating them with what she thinks is Silvadene and a dressing over top. She had been trying to keep the areas offloaded with a half shoe to the right foot and an open toed shoe to the left foot so no pressure is applied to the ulcer sites. She is also using a scooter. She and her felt the areas have been slowly improving, but were referred here for further care. Patient denies noticing any purulence to the areas or any extending redness. Currently the patient denies any feelings of nausea, vomiting, fever, chills. Progress of Wound: Stable ulcer site. No signs of infection. Patient denies any feelings of nausea, vomiting, fever, chills. - Physical Exam Vital Signs Temp Pulse Resp BP 96.6 F L 74 18 125/62 H 08/16/19 08:30 08/16/19 08:30 08/16/19 08:30 08/16/19 08:30 General: Alert, Oriented x3, Cooperative, No apparent distress Extremities: Capillary Refill Less than 3 Seconds - To all digits of each foot, No Calf Tenderness - Negative Azra and Valencia signs bilateral, Diminished Peripheral Pulses - DP pulses palpable and PT pulses nonpalpable bilateral, Edema - Slight lower extremity edema Skin: Ulcer/ Wound - Ulcer sub-right first metatarsal head with fat layer exposed. Base is a mixture of adherent slough, fibrin, devitalized subcutaneous tissue, grannular tissue, and slight surrounding hyperkeratotic tissue. There is no purulence, no malodor, no surrounding or extending cellulitis, no significant increase in warmth, no probing to bone, no tracking, no undermining. Wound Measurements and Assessment WC - Nurse 1 - General Ulcer Measurement Start: 07/26/19 09:16 Freq: Status: Active Protocol: Activity Type Activity Date Activity User E-Sign Co-Sign Detail Recorded Client Recorded Date Recorded By Document 08/16/19 08:30 DL [id number] 08/16/19 08:35 DL 08/16/19 08:30 Wound Center Nurse 1 [Ulcer Assessment] 2-right 1st metatarsal -Current Size (cm) - Length 0.5 -Current Size (cm) - Width 0.3 -Current Size (cm) - Depth 0.2 -Total Square Cm 0.15 -Photo Taken No -Exudate Amt None Present -Wound Margin Distinct, Outline Attached -Granulation Amt Large (67-100%) -Granulation Quality Red -Necrosis Amt None Present (0 %) -Structure Exposed N/A -Texture (Shannan-wound Skin Appearance) Callus -Moisture (Shannan-wound Skin Appearance Dry/Scaly ) -Color (Shannan-wound Skin Appearance) No Abnormality -Temperature (Shannan-wound Skin No Abnormality Appearance) (Pt Warm) -Tenderness on Palpation (Shannan-wound No Skin Appearance) -Ulcer Cleansing Rinsed/ Irrigated with Saline -Foul Odor after Cleansing No -Anesthetic Used 5% Lidocaine Gel [Edema Assessment] -Right Calf (cm) 39 -Right Ankle (cm) 21.5 WC - Nurse 2 - General Ulcer CM Notes Start: 07/26/19 09:16 Freq: Status: Active Protocol: Activity Type Activity Date Activity User E-Sign Co-Sign Detail Recorded Client Recorded Date Recorded By Document 08/16/19 08:45 DL [id number] 08/16/19 08:46 DL 08/16/19 08:45 Wound Center Nurse 2 [Procedure/Treatment] 2-right 1st metatarsal -Time 08:46 -Correct Patient Yes -Correct Side, Site, Position Yes -Correct Procedure Yes -Procedure Performed Yes -Type of Procedure Debridement -Clinical Debridement Subcutaneous -Post Debridement Size (cm) - Length 0.4 -Post Debridement Size (cm) - Width 0.2 -Post Debridement Size (cm) - Depth 0.2 -Total Square Cm 0.08 -Wound/Ulcer Outcome Not Healed -Ulcer Cleansing Rinsed/ Irrigated with Saline -Foul Odor after Cleansing No -Bioengineered Tissue No -Bleeding Controlled with Pressure -Offloading Yes -Type of Offloading Surgical Shoe -Treatment Response Procedure Tolerated Well [See Physician Procedure note for Specifics] Pain Scale: 0-10 Numeric [Pain] -Is Patient Pain Free? Yes Musculoskeletal: No Tenderness to Palpation of Joints or Extremities, - - Dorsally contracted digits bilateral. Prominent plantar metatarsal heads Neurological: - - Epicritic sensation diminished bilateral lower extremities consistent with patient's diabetic neuropathy status Psych/Mental Status: Normal Affect, Appropriate Debridement Note Post-Debridement Measurements/Treatment WC - Nurse 2 - General Ulcer CM Notes Start: 07/26/19 09:16 Freq: Status: Active Protocol: Activity Type Activity Date Activity User E-Sign Co-Sign Detail Recorded Client Recorded Date Recorded By Document 07/26/19 09:29 DV [id number] 07/26/19 09:32 DV Document 08/09/19 08:34 DV [id number] 08/09/19 08:40 DV Document 08/16/19 08:45 DL [id number] 08/16/19 08:46 DL 07/26/19 08/09/19 08/16/19 09:29 08:34 08:45 Wound Center Nurse 2 2-right 1st metatarsal -Time 09:30 08:35 08:46 -Correct Patient Yes Yes Yes -Correct Side, Site, Position Yes Yes Yes -Correct Procedure Yes Yes Yes -Procedure Performed Yes Yes Yes -Type of Procedure Debridement Debridement Debridement -Clinical Debridement Subcutaneous Subcutaneous Subcutaneous -Post Debridement Size (cm) - Length 0.6 0.4 0.4 -Post Debridement Size (cm) - Width 0.5 0.3 0.2 -Post Debridement Size (cm) - Depth 0.3 0.2 0.2 -Total Square Cm 0.30 0.12 0.08 -Wound/Ulcer Outcome Not Healed Not Healed Not Healed -Ulcer Cleansing Rinsed/ Rinsed/ Rinsed/ Irrigated with Irrigated with Irrigated with Saline Saline Saline -Foul Odor after Cleansing No No No -Bioengineered Tissue No No No -Bleeding Controlled with Pressure Pressure Pressure -Offloading No No Yes -Type of Offloading Wedge Shoe Surgical Shoe -Treatment Response Procedure Procedure Procedure Tolerated Well Tolerated Well Tolerated Well Pain Scale: 0-10 Numeric Is Patient Pain Free? Yes Yes Yes Wound debrided: Right sub-first MPJ Laterality: Right Type of Debridement: Excisional debridement Anesthesia Used: 4% Lidocaine Solution Depth: in the subcutaneous layer Percentage of wound debrided: 100 Instrument Used: #15 blade Tissue Removed: Devitalized subcutaneous tissue, adherent slough, fibrin, hpk skin Severity: Fat Layer Exposed Amount of bleeding with debridement: Mild Bleeding Controlled with: Pressure Patient tolerated procedure well Assessment/Plan Assessment: As noted above Plan: Patient was carefully examined and evaluated again today in detail after not being seen last week again. No worsening appreciated. Patient had another subcutaneous excisional debridement performed to the aforementioned ulcer site as noted in the clinical panel. The ulcer site was then dressed with hydrogel to the base followed by a dry sterile dressing and Tubigrip for compression. The patient is to change her dressing in this manner on a daily basis. Continued importance of offloading the ulcer site was stressed in great detail again today with half shoe on the right side to completely offload the ulcer site. Patient is to continue with these as well as her knee scooter to keep the area is completely offloaded. Patient still relates she is not ready to proceed with the TCC?EZ yet. At earlier visit, LEAS and venous Doppler exams were ordered. 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 There is also evidence of incompetence of the veins in the left lower extremity. A note from Dr. Burrell reports that they checked a duplex and she has some right peroneal and posterior tibial occlusive disease. He says that she has good direct line flow through her anterior tibial that appears adequate. He states that if her wound worsens then he would plan an angiogram. He plans to see her back in a couple months for another follow-up. The importance of a high-protein diet was stressed with this patient today in order to help optimize ulcer healing potential. The patient was educated on all signs and symptoms of local and systemic infection she was instructed to go to the emergency room immediately should she notice any of these. All other questions were answered the patient's satisfaction. Patient will follow back up in clinic in 1 week to check on progress, or sooner if needed before then.
== END 2019-08-18 23:59 ==
LOC: WC 08:30
PROVIDERS: Family Provider Family Medicine; PCP Family Medicine; Referring Provider Podiatrist; Visit Provider Podiatrist
DX: E11.621 Type 2 diabetes mellitus with foot ulcer (principal); E11.42 Type 2 diabetes mellitus with diabetic polyneuropathy; E11.51 Type 2 diabetes mellitus with diabetic peripheral angiopathy without gangrene; R60.0 Localized edema; L97.512 Non-pressure chronic ulcer of other part of right foot with fat layer exposed
CPT/HCPCS: 11042

== ENCOUNTER 2019-08-23 08:36 | Outpatient (RCR) | payer SELFPAY ==
[2019-08-19 00:32] VITALS: BP 125/62; PULSE 74; RESP 18; TEMP 35.9
[2019-08-23 08:36] VITALS: BP 141/71; PULSE 90; RESP 18; TEMP 36.4; BMI 32.3
--- NOTE | 2019-08-23 08:50 | PN.PCM_ITS ---
(1) Ulcer of right foot with fat layer exposed Status: Chronic Current Visit: No Code(s): L97.512 - Non-pressure chronic ulcer of other part of right foot with fat layer exposed (2) Type 2 diabetes mellitus with diabetic polyneuropathy Status: Chronic Current Visit: No Code(s): E11.42 - Type 2 diabetes mellitus with diabetic polyneuropathy (3) PVD (peripheral vascular disease) Status: Suspected Current Visit: No Code(s): I73.9 - Peripheral vascular disease, unspecified (4) Lower extremity edema Status: Acute Current Visit: No Code(s): R60.0 - Localized edema Type of Wound Date of Service: 08/23/19 Chief Complaint: Right foot ulcer History of Wound: This 63-year-old diabetic female presented to the [facility] with her after being referred by her backing in machine tender for ulcers sub-right first metatarsal head, right dorsal fourth toe, and distal left hallux. The patient states that she had an issue with her sub-right first metatarsal head ulcer about 4 years ago, and that she had had a previous surgery in the area and that everything eventually healed up. She relates that about 3 weeks prior to Wound Center visit she got a pair of new diabetic shoes and that these new 3 ulcers all appeared. She had been treating them with what she thinks is Silvadene and a dressing over top. She had been trying to keep the areas offloaded with a half shoe to the right foot and an open toed shoe to the left foot so no pressure is applied to the ulcer sites. She is also using a scooter. She and her felt the areas have been slowly improving, but were referred here for further care. Patient denies noticing any purulence to the areas or any extending redness. Currently the patient denies any feelings of nausea, vomiting, fever, chills. Progress of Wound: Very minor improvement. No signs of infection. Patient denies any feelings of nausea, vomiting, fever, chills. - Physical Exam Vital Signs Temp Pulse Resp BP 97.5 F L 90 18 141/71 H 08/23/19 08:36 08/23/19 08:36 08/23/19 08:36 08/23/19 08:36 General: Alert, Oriented x3, Cooperative, No apparent distress Extremities: Capillary Refill Less than 3 Seconds - To all digits of each foot, No Calf Tenderness - Negative Azra and Vaelncia signs bilateral, Diminished Peripheral Pulses - DP pulses palpable and PT pulses nonpalpable bilateral, Edema - Slight lower extremity edema Skin: Ulcer/ Wound - Ulcer sub-right first metatarsal head with fat layer exposed. Base is a mixture of adherent slough, fibrin, devitalized subcutaneous tissue, increasing amount of grannular tissue, and slight surrounding hyperkeratotic tissue. There is no purulence, no malodor, no surrounding or extending cellulitis, no significant increase in warmth, no probing to bone, no tracking, no undermining. Wound Measurements and Assessment WC - Nurse 1 - General Ulcer Measurement Start: 08/23/19 08:36 Freq: Status: Active Protocol: Activity Type Activity Date Activity User E-Sign Co-Sign Detail Recorded Client Recorded Date Recorded By Document 08/23/19 08:36 DL [id number] 08/23/19 08:40 DL 08/23/19 08:36 Wound Center Nurse 1 [Ulcer Assessment] 2-right 1st metatarsal -Current Size (cm) - Length 0.3 -Current Size (cm) - Width 0.3 -Current Size (cm) - Depth 0.1 -Total Square Cm 0.09 -Photo Taken No -Exudate Amt None Present -Wound Margin Flat & Intact -Granulation Amt Small (1-33%) -Granulation Quality Red -Necrosis Amt None Present (0 %) -Structure Exposed N/A -Texture (Shannan-wound Skin Appearance) Callus -Moisture (Shannan-wound Skin Appearance No Abnormality ) -Color (Shannan-wound Skin Appearance) No Abnormality -Temperature (Shannan-wound Skin No Abnormality Appearance) (Pt Warm) -Tenderness on Palpation (Shannan-wound No Skin Appearance) -Ulcer Cleansing Rinsed/ Irrigated with Saline -Foul Odor after Cleansing No -Anesthetic Used 5% Lidocaine Gel [Edema Assessment] -Right Calf (cm) 38 -Right Ankle (cm) 21.8 WC - Nurse 2 - General Ulcer CM Notes Start: 08/23/19 08:36 Freq: Status: Active Protocol: Activity Type Activity Date Activity User E-Sign Co-Sign Detail Recorded Client Recorded Date Recorded By Document 08/23/19 08:45 DL [id number] 08/23/19 08:47 DL 08/23/19 08:45 Wound Center Nurse 2 [Procedure/Treatment] 2-right 1st metatarsal -Time 08:46 -Correct Patient Yes -Correct Side, Site, Position Yes -Correct Procedure Yes -Procedure Performed Yes -Type of Procedure Debridement -Clinical Debridement Subcutaneous -Post Debridement Size (cm) - Length 0.3 -Post Debridement Size (cm) - Width 0.2 -Post Debridement Size (cm) - Depth 0.2 -Total Square Cm 0.06 -Wound/Ulcer Outcome Not Healed -Ulcer Cleansing Rinsed/ Irrigated with Saline -Foul Odor after Cleansing No -Bioengineered Tissue No -Bleeding Controlled with Pressure -Offloading Yes -Type of Offloading Surgical Shoe -Treatment Response Procedure Tolerated Well [See Physician Procedure note for Specifics] Pain Scale: 0-10 Numeric [Pain] -Is Patient Pain Free? Yes Musculoskeletal: No Tenderness to Palpation of Joints or Extremities, - - Dorsally contracted digits bilateral. Prominent plantar metatarsal heads. Neurological: - - Epicritic sensation is diminished to bilateral lower extremities consistent with patient's diabetic neuropathy status Psych/Mental Status: Normal Affect, Appropriate Debridement Note Post-Debridement Measurements/Treatment WC - Nurse 2 - General Ulcer CM Notes Start: 08/23/19 08:36 Freq: Status: Active Protocol: Activity Type Activity Date Activity User E-Sign Co-Sign Detail Recorded Client Recorded Date Recorded By Document 08/23/19 08:45 DL [id number] 08/23/19 08:47 DL 08/23/19 08:45 Wound Center Nurse 2 2-right 1st metatarsal -Time 08:46 -Correct Patient Yes -Correct Side, Site, Position Yes -Correct Procedure Yes -Procedure Performed Yes -Type of Procedure Debridement -Clinical Debridement Subcutaneous -Post Debridement Size (cm) - Length 0.3 -Post Debridement Size (cm) - Width 0.2 -Post Debridement Size (cm) - Depth 0.2 -Total Square Cm 0.06 -Wound/Ulcer Outcome Not Healed -Ulcer Cleansing Rinsed/ Irrigated with Saline -Foul Odor after Cleansing No -Bioengineered Tissue No -Bleeding Controlled with Pressure -Offloading Yes -Type of Offloading Surgical Shoe -Treatment Response Procedure Tolerated Well Pain Scale: 0-10 Numeric Is Patient Pain Free? Yes Wound debrided: Right sub-first MPJ Laterality: Right Type of Debridement: Excisional debridement Anesthesia Used: 4% Lidocaine Solution Depth: in the subcutaneous layer Percentage of wound debrided: 100 Instrument Used: #15 blade Tissue Removed: Devitalized cutaneous tissue, adherent slough, fibrin, hpk skin Severity: Fat Layer Exposed Amount of bleeding with debridement: Mild Bleeding Controlled with: Pressure Patient tolerated procedure well Assessment/Plan Assessment: As noted above Plan: Patient was carefully examined and evaluated again today in detail after not being seen last week again. Very minor improvement noted. Patient had another subcutaneous excisional debridement performed to the aforementioned ulcer site as noted in the clinical panel. The ulcer site was then dressed with hydrogel to the base followed by a dry sterile dressing and Tubigrip for compression. The patient is to change her dressing in this manner on a daily basis. Continued importance of offloading the ulcer site was stressed in great detail again today with half shoe on the right side to completely offload the ulcer site. Patient is to continue with these as well as her knee scooter to keep the area is completely offloaded. Patient still relates she is not ready to proceed with the TCC?EZ yet. At earlier visit, LEAS and venous Doppler exams were ordered. 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 There is also evidence of incompetence of the veins in the left lower extremity. A note from Dr. Burrell reports that they checked a duplex and she has some right peroneal and posterior tibial occlusive disease. He says that she has good direct line flow through her anterior tibial that appears adequate. He states that if her wound worsens then he would plan an angiogram. He plans to see her back in a couple months for another follow-up. The i mportance of a high-protein diet was stressed with this patient today in order to help optimize ulcer healing potential. The patient was educated on all signs and symptoms of local and systemic infection she was instructed to go to the emergency room immediately should she notice any of these. All other questions were answered the patient's satisfaction. Patient will follow back up in clinic in 3 weeks after her trip to [facility] to check on progress, or sooner if needed before then.
== END 2019-09-18 23:59 ==
LOC: WC 08:36
PROVIDERS: Family Provider Family Medicine; PCP Family Medicine; Referring Provider Podiatrist; Visit Provider Podiatrist
DX: E11.621 Type 2 diabetes mellitus with foot ulcer (principal); E11.42 Type 2 diabetes mellitus with diabetic polyneuropathy; E11.51 Type 2 diabetes mellitus with diabetic peripheral angiopathy without gangrene; L97.512 Non-pressure chronic ulcer of other part of right foot with fat layer exposed; R60.0 Localized edema
CPT/HCPCS: 11042

== ENCOUNTER → 2022-06-15 | Outpatient (CLI) | payer SELFPAY ==
[2022-06-15 17:30] LABS: Hematocrit 29.2 % (37-47); Hemoglobin 9.7 g/dL (12.0-15.0); Mean Corp Hgb Conc 33.2 g/dL (32-36); Mean Corpuscular Volume 84.1 fL (81-99); Mean Platelet Vol. 9.5 fl (6.2-12.0); Platelet Count 318 K/mm3 (150-450); RBC Distribution Width CV 13.4 % (11.6-14.6); RBC Distribution Width SD 40.6 fl (35.1-43.9); Red Blood Count 3.47 M/mm3 (4.2-5.4); White Blood Count 5.8 K/mm3 (4.4-11.0)
[2022-06-15 17:55] LABS: ALB/GLOB Ratio 0.6 RATIO (0.9-2.4); AST(SGOT) 24 U/L (15-37); Alanine Aminotransfer ALT/SGPT 31 U/L (13-56); Albumin, Serum 2.7 g/dL (3.2-5.0); Alkaline Phosphatase 97 U/L (45-117); Anion Gap 5 (5-15); BUN 25 mg/dL (7-18); BUN/Creat Ratio 18.7 RATIO (10-20); Calcium,Total 8.8 mg/dL (8.5-10.1); Chloride 105 mmol/L (98-107); Creatinine, Serum 1.34 mg/dL (0.55-1.02); EST Glomerular Filtration Rate 42 mL/min (>60); Est Glom Filt Rate - Afr Amer 51 mL/min (>60); Globulin 4.7 g/dL (2.2-4.2); Glucose 211 mg/dL (74-106); Potassium 5.3 mmol/L (3.5-5.1); Protein, Total 7.4 g/dL (6.4-8.2); Sodium Level 136 mmol/L (136-145)
== END | disposition home or self-care (01) ==
LOC: LABSPEC 17:18
PROVIDERS: PCP Family Medicine; Visit Provider Student in an Organized Health Care Education/Training Program
DX: M86.9 Osteomyelitis, unspecified (principal)
CPT/HCPCS: 80053; 85027

== ENCOUNTER → 2022-06-22 | Outpatient (CLI) | payer SELFPAY ==
[2022-06-22 16:04] LABS: Hematocrit 30.7 % (37-47); Hemoglobin 9.5 g/dL (12.0-15.0); Mean Corp Hgb Conc 30.9 g/dL (32-36); Mean Corpuscular Hgb 27.4 pg (27.0-32.0); Mean Corpuscular Volume 88.5 fL (81-99); Mean Platelet Vol. 9.4 fl (6.2-12.0); Platelet Count 280 K/mm3 (150-450); RBC Distribution Width CV 14.4 % (11.6-14.6); RBC Distribution Width SD 45.3 fl (35.1-43.9); Red Blood Count 3.47 M/mm3 (4.2-5.4); White Blood Count 4.8 K/mm3 (4.4-11.0)
[2022-06-22 16:18] LABS: Erythrocyte Sedimentation Rate 59 mm/hr (0-30)
[2022-06-22 16:30] LABS: ALB/GLOB Ratio 0.7 RATIO (0.9-2.4); AST(SGOT) 31 U/L (15-37); Alanine Aminotransfer ALT/SGPT 46 U/L (13-56); Albumin, Serum 2.9 g/dL (3.2-5.0); Alkaline Phosphatase 107 U/L (45-117); Anion Gap 6 (5-15); BUN 31 mg/dL (7-18); BUN/Creat Ratio 25.6 RATIO (10-20); Calcium,Total 8.9 mg/dL (8.5-10.1); Chloride 106 mmol/L (98-107); Creatinine, Serum 1.21 mg/dL (0.55-1.02); EST Glomerular Filtration Rate 47 mL/min (>60); Est Glom Filt Rate - Afr Amer 57 mL/min (>60); Globulin 4.3 g/dL (2.2-4.2); Glucose 147 mg/dL (74-106); Protein, Total 7.2 g/dL (6.4-8.2); Sodium Level 138 mmol/L (136-145)
== END | disposition home or self-care (01) ==
PROVIDERS: PCP Family Medicine; Visit Provider Student in an Organized Health Care Education/Training Program
DX: M86.9 Osteomyelitis, unspecified (principal)
CPT/HCPCS: 80053; 85027; 85652

== ENCOUNTER → 2024-02-22 | Outpatient (CLI) | payer SELFPAY ==
[2024-02-22 13:20] LABS: Microalbumin,Random Urine 88.2 mg/L (NO RANGE EST.)
== END | disposition home or self-care (01) ==
LOC: POLAB3 12:00
PROVIDERS: PCP Family Medicine; Visit Provider Internal Medicine Nephrology
DX: N18.32 Chronic kidney disease, stage 3b (principal)
CPT/HCPCS: 82043; 82570

== ENCOUNTER → 2024-02-23 | Outpatient (CLI) | payer SELFPAY ==
[2024-02-23 12:52] LABS: Anion Gap 6 (5-15); BUN 35 mg/dL (7-18); BUN/Creat Ratio 24.1 RATIO (10-20); Calcium,Total 9.4 mg/dL (8.5-10.1); Chloride 106 mmol/L (98-107); Creatinine, Serum 1.45 mg/dL (0.55-1.02); EST Glomerular Filtration Rate 38 mL/min (>60); Est Glom Filt Rate - Afr Amer 46 mL/min (>60); Glucose 157 mg/dL (74-106); Potassium 4.6 mmol/L (3.5-5.1); Sodium Level 136 mmol/L (136-145)
== END | disposition home or self-care (01) ==
PROVIDERS: PCP Family Medicine; Referring Provider Internal Medicine Nephrology; Visit Provider Internal Medicine Nephrology
DX: E87.5 Hyperkalemia (principal)
CPT/HCPCS: 36415; 80048

== ENCOUNTER → 2024-10-03 | Outpatient (CLI) | payer SELFPAY ==
[2024-10-03 15:37] LABS: Anion Gap 11 (5-15); BUN 31 mg/dL (4-19); BUN/Creat Ratio 21.4 RATIO (10-20); Calcium,Total 9.2 mg/dL (7.6-11.0); Carbon Dioxide 23.8 mmol/L (21.0-32.0); Chloride 100 mmol/L (98-108); Creatinine, Serum 1.47 mg/dL (0.70-1.20); EST Glomerular Filtration Rate 39 (>60); Glucose 220 mg/dL (70-99); Potassium 4.5 mmol/L (3.3-5.1); Sodium Level 135 mmol/L (133-145)
[2024-10-03 15:38] LABS: Vitamin D,25 Hydroxy 19.8 ng/mL (30-100)
== END | disposition home or self-care (01) ==
PROVIDERS: Referring Provider Internal Medicine Nephrology; Visit Provider Internal Medicine Nephrology
DX: N18.32 Chronic kidney disease, stage 3b (principal)
CPT/HCPCS: 36415; 80048; 82306

== ENCOUNTER → 2025-05-01 | Outpatient (CLI) | payer SELFPAY | END | disposition home or self-care (01) | LOC: LABSPEC 15:32 | PROVIDERS: Referring Provider Podiatrist; Visit Provider Podiatrist | DX: L97.929 Non-pressure chronic ulcer of unspecified part of left lower leg with unspecified severity (principal) | CPT/HCPCS: 87070; 87205 ==

== ENCOUNTER → 2025-05-27 | Outpatient (CLI) | payer SELFPAY ==
[2025-05-27 12:24] LABS: PTHIN 54 pg/mL (11-61)
[2025-05-27 12:40] LABS: Albumin, Serum 3.7 g/dL (3.4-4.8); Anion Gap 10 (5-15); BUN 32 mg/dL (4-19); BUN/Creat Ratio 28.4 RATIO (10-20); Calcium,Total 9.2 mg/dL (7.6-11.0); Carbon Dioxide 22.9 mmol/L (21.0-32.0); Chloride 104 mmol/L (98-108); Glucose 87 mg/dL (70-99); Potassium 4.3 mmol/L (3.3-5.1); Vitamin D,25 Hydroxy 17.3 ng/mL (30-100)
== END | disposition home or self-care (01) ==
PROVIDERS: PCP Nurse Practitioner Family; Referring Provider Internal Medicine Nephrology; Visit Provider Internal Medicine Nephrology
DX: N18.32 Chronic kidney disease, stage 3b (principal); E11.40 Type 2 diabetes mellitus with diabetic neuropathy, unspecified; E55.9 Vitamin D deficiency, unspecified
CPT/HCPCS: 36415; 80069; 82306; 83970

== ENCOUNTER → 2025-05-30 | Outpatient (CLI) | payer SELFPAY ==
[2025-05-30 14:48] LABS: Creatinine, Urine (random) 88.50 mg/dL (28.00-217.00); Microalbumin,Random Urine 179.0 mg/L (<20 mg/L)
--- OUTSIDE RECORDS SUMMARY | 2025-05-30 16:57 | XMS RPT_ITS | CCD ---
Author Organization [facility] Care Team Providers Care Coach Name Role Phone Dr. Zora Arango DO Attending Provider Dr. Zora Arango DO Referring Provider [phone] Care Physician, No Primary Primary Care Provider Unavailable AARON ZHENG DPM Admitting Unavailable AARON ZHENG DPM Attending Unavailable AARON ZHENG DPM Primary Care Unavailable RODO HASKINS Consulting Unavailable PROVIDER, UNKNOWN Consulting Unavailable Rodo Haskins Primary Care Unavailable Zora Arango Attending Unavailable Zora Arango Attending Unavailable Zora Arango Referring Unavailable Rodo Haskins Primary Care Unavailable Care Physician, No Primary Primary Care Unava ilable Zora Arango Attending Unavailable Zora Arango Referring Unavailable Allergies Allergy Classification Reported Allergen(s) Allergy Type Date of Onset Reaction(s) Facility (2 sources) Sulfamethoxazole Drug Allergy 9 Nausea/Vom/[facility] (2 sources) Trimethoprim Drug Allergy 9 Nausea/Vom/[facility] (1 source) Ciprofloxacin Drug Allergy [facility] (1 source) Clindamycin Drug Allergy [facility] (1 source) Sulfamethoxazole / Trimethoprim Drug Allergy [facility] (1 source) Sulfamethoxazole Drug Allergy 9 [facility] (1 source) Trimethoprim Drug Allergy 9 [facility] Medications Current Medications Medication Drug Class(es) Dates Sig (Normalized) Sig (Original) glipiZIDE er 10 mg 24 hr extended release oral tablet (2 sources) Sulfonylurea Start: 03-31-2015 take 1 tablet by mouth once daily Glipizide (Glucotrol Xl) 10 MG tablet extended release 24hr Active 10 mg PO DAILY March 31, 2015 12:00am hydroCHLOROthiazide 50 mg / triamterene 75 mg oral tablet (4 sources) Potassium-sparing Diuretic, Thiazide Diuretic Start: 02-22-2019 Triamterene-Hyd rochlorothiazid 1 EACH tablet Active 0.5 {tbl} PO DAILY February 22, 2019 12:00am Start: 02-22-2019 take 0.5 tablet by mouth once daily Triamterene-Hydrochlorothiazid Active 0. 5 TABLET PO DAILY February 21, 2019 11:00pm Start: 03-31-2015 End: 04-03-2015 Triamterene-Hydrochlorothiaz id 1 TABLET tablet Discontinued 0.5 {tbl} PO DAILY March 31, 2015 12:00am April 03, 2015 10:44am Start: 03-31-2015 End: 04-03-2015 take 0.5 tablet by mouth once daily Triamterene-Hydrochlorothiazid Discontin ued 0.5 TABLET PO DAILY March 30, 2015 11:00pm April 03, 2015 9:44am insulin isophane, human 70 unt/ml / insulin, regular, human 30 unt/ml injectable suspension (2 sources) Insulin Start: 03-31-2015 Insulin Nph An d Regular Human (Novolin 70/30 U-100 Insulin) 100 UNITS/ML suspension Active 4 U SC DAILY March 31, 2015 12:00am pravastatin sodium 80 mg oral tablet (2 sources) HMG-CoA Reductase Inhibitor Start: 02-22-2019 take 1 mg by mouth once daily Pravastatin 80 MG tablet Active mg PO DAILY February 22, 2019 12:00am Start: 02-22-2019 take 1 mg by mouth once daily Pravastatin Active MG PO DAILY February 21, 2019 11:00pm Completed/Discontinued Medications Medication Drug Class(es) Dates Sig (Normalized) Sig (Original) aspirin 81 mg chewable tablet (2 sources) Platelet Aggregation Inhibitor, Nonsteroidal Anti-inflammatory Drug Start: 04-03-2015 End: 02-22-2019 take 1 tablet by mouth once daily Aspirin 81 MG Tab.Chew Discontinued 81 mg PO DAILY@0800 30 April 03, 2015 12:00am February 22, 2019 9:22am 3 ml insulin isophane, human 100 unt/ml pen injector (2 sources) Start: 03-31-2015 End: 02-22-2019 Insulin Nph Isoph U-100 Human (Humulin N Nph Insulin Kwikpen) 100 UNITS/ML Pen Discontinued 4 U SC AT BEDTIME March 31, 2015 12:00am February 22, 2019 9:22am levoFLOXacin 500 mg oral tablet (2 sources) Quinolone Antimicrobial Start: 04-03-2015 End: 02-22-2019 take 1 tablet by mouth every twenty-four hours Levofloxacin 500 MG tablet Discontinued 500 mg PO EVERY 24 HOURS April 03, 2015 12:00am February 22, 2019 9:22am ondansetron 8 mg oral tablet (2 sources) Serotonin-3 Receptor Antagonist Start: 04-03-2015 End: 02-22-2019 take 1 tablet by mouth every eight hours as needed for nausea Ondansetron Hcl 8 MG tablet Discontinued 8 mg PO EVERY 8 HOURS NEEDED as needed for nausea, emesis April 03, 2015 12:00am February 22, 2019 9:22am sulfamethoxazole 800 mg / trimethoprim 160 mg oral tablet (2 sources) Dihydrofolate Reductase Inhibitor Antibacterial, Sulfonamide Antimicrobial Start: 03-31-2015 End: 04-03-2015 Sulfamethoxazole- Trimethoprim 1 TABLET tablet Discontinued 1 {tbl} PO TWICE A DAY March 31, 2015 12:00am April 03, 2015 10:43am Start: 03-31-2015 End: 04-03-2015 take 1 tablet by mouth twice daily Sulfamethoxazole-Trimethoprim Discontinu ed 1 TABLET PO TWICE A DAY March 30, 2015 11:00pm April 03, 2015 9:43am Problems Active Problems Problem Classification Problem Date Documented Date Episodic/Chronic Chronic kidney disease (1 source) Chronic kidney disease; Translations: [Chronic kidney disease, stage 3b] Onset: 02-11-2025 Chronic ulcer of skin (4 sources) Non-pressure chronic ulcer of other part of right foot with fat layer exposed; Translations: [Ulcer of right foot with fat layer exposed] 05-24-2019 Chronic Diabetes mellitus with complications (1 source) Polyneuropathy due to type 2 diabetes mellitus; Translations: [Type 2 diabetes mellitus with diabetic polyneuropathy] 05-24-2019 Chronic Diabetes mellitus without complication (3 sources) Type 2 diabetes mellitus; Translations: [Type 2 diabetes mellitus without complications] 02-22-2019 Chronic Disorders of lipid metabolism (2 sources) Hyperlipidemia; Translations: [Hyperlipidemia, unspecified] 02-22-2019 Chronic Essential hypertension (2 sources) Hypertensive disorder; Translations: [Essential (primary) hypertension] 02-22-2019 Chronic Other liver diseases (2 sources) Steatosis of liver; Translations: [Fatty (change of) liver, not elsewhere classified] 02-22-2019 Chronic Comment on above: Suspect chronic, ED Liver US w/ fatty liver. Elevated LFTs, unclear if chronic as also dehydrated upon admission. Other nutritional; endocrine; and metabolic disorders (2 sources) Obese class I; Translations: [Obesity, unspecified] 02-22-2019 Chronic Residual codes; unclassified (2 sources) Edema of lower extremity; Translations: [Localized edema] 03-22-2019 Episodic Past or Other Problems Problem Classification Problem Date Documented Da te Episodic/Chronic Fluid and electrolyte disorders (1 source) Hyperkalemia; Translations: [Hyperkalemia] Onset: 03-14-2024 Episodic Results Test Name Value Interpretation Reference Range Facility BACTERIAL WOUND CULTURE [CCL ]on 01-13-2025 BACTERIAL WOUND CULTURE [CCL] Normal [facility] Comment on above: Result Comment: 111 01/13/25.AEL. SEE SCANNED REPORT Performed By: #### [id number] #### [facility],[address] [place] [id number] Anion gap in Serum or Plasma Ordered By: Zora Arango on 10-03-2024 Anion gap [Moles/Vol] 11 mmol/L 11-01 [facility] BUN/creatinine ratioOrdered By: Zora Arango on 10-03-2024 Urea nitrogen/Creatinine [Mass ratio] 21.4 mg/mg High 04-08 [facility] Basic Metabolic Profile (BMP )on 10-03-2024 BUN/CRE 21.4 RATIO High 04-08 [facility] Comment on above: Performed By: #### L 500.2500, L506.1001 #### [facility] [address] [place], [address] Calcium [Mass/Vol] 9.2 mg/dL Normal 7.6-11.0 [facility] Comment on above: Performed By: #### L 500.2500, L506.1001 #### [facility] [address] [place], [address] Chloride [Moles/Vol] 100 mmol/L Normal 98-108 [facility] Comment on above: Performed By: #### L 500.2500, L506.1001 #### [facility] [address] [place], [address] CO2 [Moles/Vol] 23.8 mmol/L Normal 21.0-32.0 [facility] Comment on above: Performed By: #### L 500.2500, L506.1001 #### [facility] [address] [place], [address] Creatinine [Mass/Vol] 1.47 mg/dL High 0.70-1.20 [facility] Comment on above: Performed By: #### L 500.2500, L506.1001 #### [facility] [address] [place], [address] GAP 11 Normal 5-15 [facility] Comment on above: Performed By: #### L 500.2500, L506.1001 #### [facility] [address] [place], [address] GFR/1.73 sq M.predicted among non-blacks MDRD (S/P/Bld) [Vol rate/Area] 39 mL/min/{1.73_m2} Low >60 [facility] Comment on above: Result Comment: mL/m in/1.73m2 CKD-EPI Creatinine Equation (2020) Performed By: #### L 500.2500, L506.1001 #### [facility] [address] [place], [address] Glucose [Mass/Vol] 220 mg/dL High 70-99 [facility] Comment on above: Performed By: #### L 500.2500, L506.1001 #### [facility] [address] [place], [address] Potassium [Moles/Vol] 4.5 mmol/L Normal 3.3-5.1 [facility] Comment on above: Performed By: #### L 500.2500, L506.1001 #### [facility] [address] [place], [address] Sodium [Moles/Vol] 135 mmol/L Normal 133-145 [facility] Comment on above: Performed By: #### L 500.2500, L506.1001 #### [facility] [address] [place], [address] Urea nitrogen [Mass/Vol] 31 mg/dL High 4-19 [facility] Comment on above: Performed By: #### L 500.2500, L506.1001 #### [facility] [address] [place], [address] Carbon dioxide, total [Moles /volume] in Central venous bloodOrdered By: Zora Arango on 10-03-2024 CO2 [Moles/Vol] 23.8 mmol/L 21.0-32.0 [facility] Chloride assayOrdered By: Ashley Arango on 10-03-2024 Chloride [Moles/Vol] 100 mmol/L 98-108 [facility] GFR/1.73 sq M.predicted sara g non-blacks MDRD (S/P/Bld) [Vol rate/Area]Ordered By: Zora Arango on 10-03-2024 Estimated GFR (MDRD) Non-Af Amer 39 Low >60 [facility] Comment on above: mL/min/1.73m2 CKD-EP I Creatinine Equation (2020) Potassium (Unsp spec) [Mass/ Vol]Ordered By: Zora Arango on 10-03-2024 Potassium [Moles/Vol] 4.5 mmol/L 3.3-5.1 [facility] Serum creatinine measurement (mass/volume)Ordered By: Zora Arango on 10-03-2024 Creatinine [Mass/Vol] 1.47 mg/dL High 0.70-1.20 [facility] Serum glucose measurement (m ass/volume)Ordered By: Zora Arango on 10-03-2024 Glucose [Mass/Vol] 220 mg/dL High 70-99 [facility] Serum or plasma calcium wandy urement (mass/volume)Ordered By: Zora Arango on 10-03-2024 Calcium [Mass/Vol] 9.2 mg/dL 7.6-11.0 [facility] Serum or plasma urea nitroge n measurement (mass/volume)Ordered By: Zora Arango on 10-03-2024 Urea nitrogen [Mass/Vol] 31 mg/dL High 4-19 [facility] Sodium levelOrdered By: Dahiana Arango on 10-03-2024 Sodium [Moles/Vol] 135 mmol/L 133-145 [facility] Vitamin D, 25-hydroxyOrdered By: Zora Arango on 10-03-2024 Vitamin D 25-Hydroxy 19.8 ng/mL Low 30-100 [facility] Comment on above: Vitamin D StatusDefi ciency: <20 ng/mL (50nmol/L)Insufficiency: 20-30 ng/mL (50-75 nmol/L)Sufficiency: 30-100 ng/mL (75-250 nmol/L)Toxicity: >100 ng/mL (>250 nmol/L) Vitamin D,25 Hydroxyon 10-03 Vitamin D 25-OH 19.8 ng/mL Low 30-100 [facility] Comment on above: Result Comment: Mary min D Status Deficiency: <20 ng/mL (50nmol/L) Insufficiency: 20-30 ng/mL (50-75 nmol/L) Sufficiency: 30-100 ng/mL (75-250 nmol/L) Toxicity: >100 ng/mL (>250 nmol/L) Performed By: #### L 500.2500, L506.1001 #### [facility] [address] [place], [place], [id number] Basic Metabolic Profile (BMP )on 02-23-2024 BUN/CRE 24.1 RATIO High 10-20 [facility] Comment on above: Performed By: #### L 500.2500 #### [facility] [address] [place], [place], [id number] CA,Total 9.4 mg/dL Normal 8.5-10.1 [facility] Comment on above: Performed By: #### L 500.2500 #### [facility] [address] [place], [address] Chloride [Moles/Vol] 106 mmol/L Normal 98-107 [facility] Comment on above: Performed By: #### L 500.2500 #### [facility] [address] [place], [address] CO2 [Moles/Vol] 24.0 mmol/L Normal 21.0-32.0 [facility] Comment on above: Performed By: #### L 500.2500 #### [facility] [address] [place], [address] Creatinine [Mass/Vol] 1.45 mg/dL High 0.55-1.02 [facility] Comment on above: Result Comment: The validity of the calculated GFR GFRAA in patients over 70 years has not been determined. Clinical correlation is essential. Performed By: #### L 500.2500 #### [facility] [address] [place], [address] EST GFR - AA 46 mL/min Low >60 [facility] Comment on above: Result Comment: Afri can [place] GFR Calc Performed By: #### L 500.2500 #### [facility] [address] [place], [address] GAP 6 Normal 5-15 [facility] Comment on above: Performed By: #### L 500.2500 #### [facility] [address] [place], [address] GFR/1.73 sq M.predicted among non-blacks MDRD (S/P/Bld) [Vol rate/Area] 38 mL/min/{1.73_m2} Low >60 [facility] Comment on above: Result Comment: Non- GFR Calc Performed By: #### L 500.2500 #### [facility] [address] [place], [address] Glucose [Mass/Vol] 157 mg/dL High 74-106 [facility] Comment on above: Result Comment: Fast ing Glucose result greater than or equal to 126 mg/dL suggests DIABETES MELLITUS per A.D.A. criteria. Performed By: #### L 500.2500 #### [facility] [address] [place], [address] Potassium [Moles/Vol] 4.6 mmol/L Normal 3.5-5.1 [facility] Comment on above: Performed By: #### L 500.2500 #### [facility] [address] [place], [address] Sodium [Moles/Vol] 136 mmol/L Normal 136-145 [facility] Comment on above: Performed By: #### L 500.2500 #### [facility] [address] [place], [address] Urea nitrogen [Mass/Vol] 35 mg/dL High 7-18 [facility] Comment on above: Performed By: #### L 500.2500 #### [facility] [address] [place], [address] Microalb:Creat Ratio,Random URon 02-22-2024 Creatinine [Mass/Vol] 61.70 mg/dL Normal NO RAN GE EST. [facility] Comment on above: Performed By: #### L 502.0250 #### [facility] [address] [place], [address] MALB:CRE 143.0 mg/g CRE High <30 mg/g CRE [facility] Comment on above: Performed By: #### L 502.0250 #### [facility] [address] [place], [address] MICROALBUMIN,UR 88.2 mg/L Normal NO RANGE EST. [facility] Comment on above: Performed By: #### L 502.0250 #### [facility] [address] [place], [address] Final Surgical Pathology Rep josé 04-15-2023 Final Surgical Pathology Report . Pathology Reports Accession: Collected Date/Time: Received Date/Time: Pathologist: [id number] 04/08/2023 08:05 EDT 04/11/2023 08:47 EDT MD CHIO SAN Final Surgical Pathology Report DIAGNOSIS: A. LEFT THIRD TOE, AMPUTATION: - ULCERATED TOE WITH ACUTE INFLAMMATION AND ASSOCIATED REACTIVE SQUAMOUS HYPERPLASIA B. LEFT FIRST TOE, AMPUTATION: - FIBROSIS AND BONE WITH FOCAL REACTIVE CHANGES C. LEFT FIRST METATARSAL, AMPUTATION: - BONE WITH REACTIVE STROMAL CHANGES COMMENT: [facility] #[id number] CLINICAL INFORMATION: OSTEOMYELITIS SPECIMEN: A LEFT 3RD TOE B LEFT 1ST TOE C 1ST METATARSAL LEFT GROSS DESCRIPTION: A. Received in formalin, labeled with the patients name, Case # [id number], and left third toe is a amputated left third toe measuring 3.5 x 2 x 2 cm. The excision margin appears viable. Extending beyond the margin is a metatarsal bone measuring 2 x 1 x 1 cm. On the lateral aspect of the toe is a ulcerated skin lesion measuring 1 x 0.9 cm. RS -3, A1-soft tissue margin, A2 -lateral skin lesion with underlying bone following decalcification, A3 -additional softened bone following decalcification. B. Received in formalin labeled left first toe is a amputated left great toe measuring 4.2 x 3.1 x 3 cm. Soft tissue excision margin appears viable. Extending beyond the margin is a metatarsal bone measuring 1.5 x 2 x 2.5 cm. The skin on the toe is grossly unremarkable. There is a toenail present measuring 1.8 x 0.8 cm. RS -3, B1- skin margin, B2-international account representative left first toe with brittle bone following decalcification, B3 -additional softened bone following decalcification C. Received in formalin labeled left first metatarsal is a left first metatarsal bone measuring 5.5 x 3 x 2.2 cm. The bone is serially sectioned. RS -2, C1-bone following decalcification, C2 -softened bone following decalcification Dictated by JODY DOWNING MICROSCOPIC DESCRIPTION: The microscopic examination is performed, except in the case of Gross Only. Electronically Signed by Pathology Report verified by [facility] CHIO SAN MD Sign out Date: 04/15/2023 10:14 Performing Lab: [facility], [address] [place] [address] Pathology Dept Pathology Reports Accession: Collected Date/Time: Received Date/Time: Pathologist: [id number] 04/08/2023 08:05 EDT 04/11/2023 08:47 EDT MD CHIO SAN Disclaimer If ancillary studies were utilized, the following Laboratory Developed Test (LDT) disclaimer will apply: Under CLIA requirements, [facility] is qualified to perform high complexity testing. For all ancillary stains, positive and negative controls stain appropriately. Performance characteristics of immunohistochemical and chromogenic in-situ hybridization tests have been determined by [facility]. These tests are used for clinical purposes, They should not be regarded as investigational or for research. Normal [facility] Basophil percentageOrdered B y: Dr. Obrien on 06-22-2022 Bilirubin [Mass/Vol] 0.30 mg/dL 0.20-1.00 [facility] Comment on above: For patients on eltr ombopag therapy, use of Dimension [place] TBIL is not recommended. Chloride [Moles/Vol] 106 mmol/L 98-107 [facility] Glucose [Mass/Vol] 147 mg/dL 74-106 [facility] Comment on above: Fasting Glucose resu lt greater than or equal to 126 mg/dL suggests DIABETES MELLITUS per A.D.A. criteria. Potassium [Moles/Vol] 5.0 mmol/L 3.5-5.1 [facility] Protein [Mass/Vol] 7.2 g/dL 6.4-8.2 [facility] Sodium [Moles/Vol] 138 mmol/L 136-145 [facility] WBC (Bld) [#/Vol] 4.8 10*3/uL 4.4-11.0 [facility] Blood erythrocytes count (nu mber/volume)Ordered By: Dr. Obrien on 06-22-2022 RBC (Bld) [#/Vol] 3.47 10*6/uL 4.2-5.4 [facility] Blood hemoglobin measurement (mass/volume)Ordered By: Dr. Obrien on 06-22-2022 Hemoglobin (Bld) [Mass/Vol] 9.5 g/dL 12.0-15.0 [facility] Blood platelet mean volumeOr dered By: Dr. Obrien on 06-22-2022 Platelet mean volume (Bld) [Entitic vol] 9.4 fL 6.2-12.0 [facility] Determination of erythrocyte mean corpuscular volume (MCV)Ordered By: Dr. Obrien on 06-22-2022 MCV (RBC) [Entitic vol] 88.5 fL 81-99 [facility] Erythrocyte sedimentation ra teOrdered By: Dr. Obrien on 06-22-2022 ESR (Bld) [Velocity] 59 mm/h 0-30 [facility] Hematocrit Auto (Bld) [Volum e fraction]Ordered By: Dr. Obrien on 06-22-2022 Hematocrit (Bld) [Volume fraction] 30.7 % 37-47 [facility] - Chemistry and C hemistry - challengeOrdered By: Dr. Obrien on 06-22-2022 ALP [Catalytic activity/Vol] 107 U/L 45-117 [facility] ALT [Catalytic activity/Vol] 46 U/L 13-56 [facility] CO2 [Moles/Vol] 26.0 mmol/L 21.0-32.0 [facility] Globulin (S) [Mass/Vol] 4.3 g/dL 2.2-4.2 [facility] Urea nitrogen/Creatinine [Mass ratio] 25.6 mg/mg 10-20 [facility] - Hematology and Cell countsOrdered By: Dr. Obrien on 06-22-2022 Erythrocyte distribution width (RBC) [Entitic vol] 45.3 fL 35.1-43.9 [facility] Erythrocyte distribution width (RBC) [Ratio] 14.4 % 11.6-14.6 [facility] MCH (RBC) [Entitic mass] 27.4 pg 27.0-32.0 [facility] MCHC Auto (RBC) [Mass/Vol]Or dered By: Dr. Obrien on 06-22-2022 MCHC (RBC) [Mass/Vol] 30.9 g/dL 32-36 [facility] No Panel InformationOrdered By: Dr. Obrien on 06-22-2022 Estimated GFR (MDRD) Amer 57 mL/min >60 [facility] Comment on above: GFR Calc Estimated GFR (MDRD) Non-Af Amer 47 mL/min >60 [facility] Comment on above: Non- GFR Calc Platelets bldOrdered By: Dr. Obrien on 06-22-2022 Platelets (Bld) [#/Vol] 280 10*3/uL 150-450 [facility] Serum or plasma albumin wandy urement (mass/volume)Ordered By: Dr. Obrien on 06-22-2022 Albumin [Mass/Vol] 2.9 g/dL 3.2-5.0 [facility] Serum or plasma albumin/glob ulin mass ratioOrdered By: Dr. Obrien on 06-22-2022 Albumin/Globulin [Mass ratio] 0.7 {ratio} 0.9-2.4 [facility] Serum or plasma calcium wandy urement (mass/volume)Ordered By: Dr. Obrien on 06-22-2022 Calcium [Mass/Vol] 8.9 mg/dL 8.5-10.1 [facility] Serum or plasma creatinine m easurement (mass/volume)Ordered By: Dr. Obrien on 06-22-2022 Creatinine [Mass/Vol] 1.21 mg/dL 0.55-1.02 [facility] Comment on above: The validity of the calculated GFR & GFRAA in patients over 70 years has not been determined. Clinical correlation is essential. Serum or plasma urea nitroge n measurement (mass/volume)Ordered By: Dr. Obrien on 06-22-2022 Urea nitrogen [Mass/Vol] 31 mg/dL 7-18 [facility] Thin prep Papanicolaou smear with manual screeningOrdered By: Dr. Obrien on 06-22-2022 Thin prep Papanicolaou smear with manual screening 31 U/L 15-37 [facility] Thin prep Papanicolaou smear with manual screening 6 5-15 [facility] Basophil percentageOrdered B y: Dr. Obrien on 06-15-2022 Bilirubin [Mass/Vol] 0.30 mg/dL 0.20-1.00 [facility] Comment on above: For patients on eltr ombopag therapy, use of Dimension [place] TBIL is not recommended. Chloride [Moles/Vol] 105 mmol/L 98-107 [facility] Glucose [Mass/Vol] 211 mg/dL 74-106 [facility] Comment on above: Glucose result great er than or equal to 200 mg/dLsuggests DIABETES MELLITUS per A.D.A. criteria. Potassium [Moles/Vol] 5.3 mmol/L 3.5-5.1 [facility] Protein [Mass/Vol] 7.4 g/dL 6.4-8.2 [facility] Sodium [Moles/Vol] 136 mmol/L 136-145 [facility] WBC (Bld) [#/Vol] 5.8 10*3/uL 4.4-11.0 [facility] Blood erythrocytes count (nu mber/volume)Ordered By: Dr. Obrien on 06-15-2022 RBC (Bld) [#/Vol] 3.47 10*6/uL 4.2-5.4 [facility] Blood hemoglobin measurement (mass/volume)Ordered By: Dr. Obrien on 06-15-2022 Hemoglobin (Bld) [Mass/Vol] 9.7 g/dL 12.0-15.0 [facility] Blood platelet mean volumeOr dered By: Dr. Obrien on 06-15-2022 Platelet mean volume (Bld) [Entitic vol] 9.5 fL 6.2-12.0 [facility] Determination of erythrocyte mean corpuscular volume (MCV)Ordered By: Dr. Obrien on 06-15-2022 MCV (RBC) [Entitic vol] 84.1 fL 81-99 [facility] Hematocrit Auto (Bld) [Volum e fraction]Ordered By: Dr. Obrien on 06-15-2022 Hematocrit (Bld) [Volume fraction] 29.2 % 37-47 [facility] - Chemistry and C hemistry - challengeOrdered By: Dr. Obrien on 06-15-2022 ALP [Catalytic activity/Vol] 97 U/L 45-117 [facility] ALT [Catalytic activity/Vol] 31 U/L 13-56 [facility] Center CO2 [Moles/Vol] 26.0 mmol/L 21.0-32.0 [facility] Globulin (S) [Mass/Vol] 4.7 g/dL 2.2-4.2 [facility] Urea nitrogen/Creatinine [Mass ratio] 18.7 mg/mg 10-20 [facility] Laboratory - Hematology and Cell countsOrdered By: Dr. Obrien on 06-15-2022 Erythrocyte distribution width (RBC) [Entitic vol] 40.6 fL 35.1-43.9 [facility] Erythrocyte distribution width (RBC) [Ratio] 13.4 % 11.6-14.6 [facility] MCH (RBC) [Entitic mass] 28.0 pg 27.0-32.0 [facility] MCHC Auto (RBC) [Mass/Vol]Or dered By: Dr. Obrien on 06-15-2022 MCHC (RBC) [Mass/Vol] 33.2 g/dL 32-36 [facility] No Panel InformationOrdered By: Dr. Obrien on 06-15-2022 Estimated GFR (MDRD) Amer 51 mL/min >60 [facility] Comment on above: GFR Calc Estimated GFR (MDRD) Non-Af Amer 42 mL/min >60 [facility] Comment on above: Non- GFR Calc Platelets bldOrdered By: Dr. Obrien on 06-15-2022 Platelets (Bld) [#/Vol] 318 10*3/uL 150-450 [facility] Serum or plasma albumin wandy urement (mass/volume)Ordered By: Dr. Obrien on 06-15-2022 Albumin [Mass/Vol] 2.7 g/dL 3.2-5.0 [facility] Serum or plasma albumin/glob ulin mass ratioOrdered By: Dr. Obrien on 06-15-2022 Albumin/Globulin [Mass ratio] 0.6 {ratio} 0.9-2.4 [facility] Serum or plasma calcium wandy urement (mass/volume)Ordered By: Dr. Obrien on 06-15-2022 Calcium [Mass/Vol] 8.8 mg/dL 8.5-10.1 [facility] Serum or plasma creatinine m easurement (mass/volume)Ordered By: Dr. Obrien on 06-15-2022 Creatinine [Mass/Vol] 1.34 mg/dL 0.55-1.02 [facility] Comment on above: The validity of the calculated GFR & GFRAA in patients over 70 years has not been determined. Clinical correlation is essential. Serum or plasma urea nitroge n measurement (mass/volume)Ordered By: Dr. Obrien on 06-15-2022 Urea nitrogen [Mass/Vol] 25 mg/dL 7-18 [facility] Thin prep Papanicolaou smear with manual screeningOrdered By: Dr. Obrien on 06-15-2022 Thin prep Papanicolaou smear with manual screening 24 U/L 15-37 [facility] Thin prep Papanicolaou smear with manual screening 5 5-15 [facility] Encounters Encounter Date Encounter Type Care Provider Facility Start: 01-10-2025 End: 01-10-2025 ambulatory [facility] Start: 10-03-2024 End: 10-03-[address] Zora Arango DO Work Phone: [facility] Work Phone: Start: 10-03-2024 End: 10-03-[address] Zora Arango DO -Laboratory Work Phone: Start: 10-03-2024 End: 10-03-2024 ambulatory No Primary Care Physician Facility:[facility] Start: 02-23-2024 End: 02-23-2024 ambulatory Zora Arango Facility:[facility] Start: 02-22-2024 End: 02-22-2024 ambulatory Rodo Haskins Facility:[facility] Start: 06-22-2022 End: 06-22-2022 ambulatory [facility] Work Phone: Start: 06-22-2022 End: 06-22-2022 Patient encounter procedure [facility]-Laboratory, Specimen Start: 06-15-2022 End: 06-15-2022 Patient encounter procedure [facility]-Laboratory, Specimen Payers Date Payer Category Payer Self-pay [id number] Unknown [id number] Unknown [id number] Unknown [id number] Social History Date Type Detail Facility Start: 02-22-2019 Tobacco smoking stat [facility] Unknown if ever smoked [facility] Start: 04-01-2015 None [facility] Start: 04-01-2015 With Family [facility] Start: 04-01-2015 Non-smoker [facility] Start: 1955 Sex Assigned At Female [facility]: [facility] Start: 10-10-2024 Sex Female (finding) [facility] Clinical Note 05-25-2022 Note Date & Type Note Facility 05-25-2022 Note . MICRO - Microbiology PROCEDURE: Culture Wound Aerobic with Gram Stain [*1] SOURCE: Ulcer BODY SITE: Foot L COLLECTED DATE/TIME: 05/20/2022 09:15 EST RECEIVED DATE/TIME: 05/20/2022 21:05 EST START DATE/TIME: 05/20/2022 21:17 EST FREE TEXT SOURCE: FINAL REPORTS Final Report [] Verified Date/Time/Personnel: 05/25/2022 08:36 EST Few Proteus mirabilis Light Enterococcus faecalis Light normal skin hui present. Sensitivity testing not indicated. PRELIMINARY REPORTS Preliminary Report [] Verified Date/Time/Personnel: 05/24/2022 11:39 EST Few Proteus mirabilis Light Enterococcus faecalis TAYLOR to follow Light normal skin hui present. Sensitivity testing not indicated. Final report to follow. Preliminary Report [] Verified Date/Time/Personnel: 05/23/2022 08:34 EST Few Proteus mirabilis Light normal skin hui present. Sensitivity testing not indicated. Final report to follow. Preliminary Report [] Verified Date/Time/Personnel: 05/22/2022 12:20 EST Few Proteus mirabilis TAYLOR to follow Light normal skin hui present. Sensitivity testing not indicated. Preliminary Report [] Verified Date/Time/Personnel: 05/21/2022 13:03 EST Culture results pending. STAINS GS [] Verified Date/Time/Personnel: 05/20/2022 22:35 EST Rare Red Blood Cells Rare White Blood Cells No organisms seen. SUSCEPTIBILITY RESULTS Proteus mirabilis Antibiotic TAYLOR Dilut TAYLOR Inter Amikacin <=16 Susceptible Amoxicillin/ <=8/4 Resistant Clavulanate Ampicillin >16 Resistant Ampicillin/ <=4/2 Resistant Sulbactam Aztreonam <=4 Resistant Cefazolin >16 Resistant Cefotaxime >32 Suspected ESBL Cover Maker MICRO - Microbiology SUSCEPTIBILITY RESULTS Proteus mirabilis Antibiotic TAYLOR Dilut TAYLOR Inter Ceftriaxone >32 Resistant Cefuroxime >16 Resistant Ciprofloxacin >2 Resistant Ertapenem <=0.5 Susceptible Gentamicin <=2 Susceptible Levofloxacin >4 Resistant Meropenem <=1 Susceptible Minocycline 8 Intermediate Moxifloxacin >4 Resistant Piperacillin/ <=8 Resistant Tazobactam Tetracycline >8 Resistant Trimethoprim/ >2/38 Resistant Sulfa Enterococcus faecalis Antibiotic TAYLOR Dilut TAYLOR Inter Ampicillin <=2 Susceptible Ciprofloxacin <=1 Susceptible Gentamicin <=500 Susceptible synergy Levofloxacin <=1 Susceptible Penicillin 2 Susceptible Vancomycin 1 Susceptible Performing Locations *1: This test was performed at: [facility], [address] [place] [address], [facility] , [facility] ([place]) Evaluation note Note Date & Type Note Facility Evaluation note No assessment information availa [facility] Work Phone: Reason for referral (narrative) Note Date & Type Note Facility Reason for referral (narrative) No reason for referral information available [facility] Work Phone: Family History No Family History Records Found Relationship Condition Age at Onset Recorded Date/T yaneli Unknown Family History?Heart Disease Unknown April 01, 2015 2:31pm Family History?No pe rtinent history Unknown April 01, 2015 2:31pm Relationship Condition Age at Onset Recorded Date/T yaneli Unknown Family History?Heart Disease Unknown April 01, 2015 3:31pm Family History?No pe rtinent history Unknown April 01, 2015 3:31pm Advance Directives No Advanced Directives Records Found Advance Directive Response Recorded Date/ Time Advance Directives Yes March 31, 2015 4:31pm Living Will Yes March 31 4:31pm Power of Legislators No March 31, 2015 4:31pm Advance Directive Response Recorded Date/ Time Advance Directives Yes March 31, 2015 5:31pm Summary Purpose Additional Source Comments Care Teams (unrecognized sec tion and content) Team Status: Active Member Role Status Dates Dr. Rodo Haskins DO Family Provider Active Dr. Rodo Haskins DO Primary Care Provider Active Team Status: Inactive Member Role Status Dates Dr. Rodo Haskins DO Primary Care Provider Active Dr. Lashawn Obrien MD Attending Provider Active Team Status: Active Member Role Status Dates No Primary Care Physician Primary Care Provider Active Team Status: Inactive Member Role Status Dates Dr. Zora Arango DO Attending Provider Active Start: October 03, 2024 End: October 03, 2024 Dr. Zora Arango DO Referring Provider Active Start: October 03, 2024 End: October 03, 2024 No Primary Care Physician Primary Care Provider Active Start: October 03, 2024 End: October 03, 2024 Goals (unrecognized section and content) Goals may be documented in a n alternate sectionGoals may be documented in an alternate section INFORMATION SOURCE (unrecogn ized section and content) DATE CREATED AUTHOR 04/17/2023 [facility] ([place]) DATE CREATED AUTHOR AUTHOR'S ORGANIZ ATION 01/13/2025 [facility] DATE CREATED AUTHOR AUTHOR'S ORGANIZ ATION 02/12/2025 [facility] FOR RECORDS PERTAINING TO PATIENTS WHO ARE OR HAVE BEEN ENROLLED IN A CHEMICAL DEPENDENCY/SUBSTANCEABUSE PROGRAM, SOME INFORMATION MAY BE OMITTED. This clinical summary was aggregated from multiple sources. Caution should be exercised in using it in the provision of clinical care. This summary normalizes information from multiple sources, and as a consequence, information in this document may materially change the coding, format and clinical context of patient data. In addition, data may be omitted in some cases. CLINICAL DECISIONS SHOULD BE BASED ON THE PRIMARY CLINICAL RECORDS. [facility]. provides no warranty or guarantee of the accuracy or completeness of information in this document.
== END | disposition home or self-care (01) ==
LOC: POLAB3 13:52
PROVIDERS: PCP Nurse Practitioner Family; Visit Provider Internal Medicine Nephrology
DX: E11.40 Type 2 diabetes mellitus with diabetic neuropathy, unspecified (principal); E11.22 Type 2 diabetes mellitus with diabetic chronic kidney disease; N18.9 Chronic kidney disease, unspecified
CPT/HCPCS: 82043; 82570